=== PATIENT | male | born 1980 | race African-American/Black ===

== ENCOUNTER 2016-11-07 00:13 | Inpatient (IN) | payer MEDICAID ==
[~2016-11-07] VITALS: Ht 188 cm; Wt 76.9 kg
[~2016-11-07 00:13] MED LIST: CARB200T6 PO; DIVA500T35 PO; LEVO25TA9 PO; LITH300C3 PO; PALI234D IM; VITAD1000 PO
[2016-11-07] MEDS ORDERED: HALOPERIDOL LACTATE 5 MG/ML VIAL IM ONE ×2 (00:30→08:00)
[2016-11-07] MEDS ORDERED: DiphenhydrAMINE HCL 50 MG/ML VIAL IM ONE (00:30)
[2016-11-07] MEDS ORDERED: LORazepam 2 MG/ML VIAL IM ONE ×2 (00:30→08:00)
[2016-11-07] MEDS ORDERED: ZOLPIDEM TARTRATE 10 MG TABLET PO PRN ×2 (01:00→01:15)
[2016-11-07] MEDS ORDERED: LORazepam 2 MG TABLET PO PRN (01:00)
[2016-11-07] MEDS ORDERED: HALOPERIDOL 5 MG TABLET PO PRN (01:00)
[2016-11-07 01:15] LABS: BASOPHILS % (AUTO) 0.2 % (0.0-2.0); EOSINOPHILS % (AUTO) 0.2 % (1.0-6.0); HEMATOCRIT 41.3 % (41-53); HEMOGLOBIN 13.4 g/dL (13.5-17.5); LYMPHOCYTES # (AUTO) 1.3 K/uL (1.0-4.8); LYMPHOCYTES % (AUTO) 17.9 % (22.0-44.0); MEAN CORPUSCULAR HEMOGLOBIN 29.1 pg (26.0-34.0); MEAN CORPUSCULAR HGB CONC 32.4 G/dL (31.0-37.0); MEAN CORPUSCULAR VOLUME 90 fL (80-100); MONOCYTES # (AUTO) 0.8 K/uL (0.1-1.0); MONOCYTES % (AUTO) 10.5 % (2.0-9.0); NEUTROPHILS # (AUTO) 5.3 K/uL (1.8-7.7); NEUTROPHILS % (AUTO) 71.2 % (40.0-70.0); PLATELET COUNT (AUTO) 279 K/uL (150-450); RED BLOOD CELL COUNT(AUTO) 4.61 MIL/uL (4.50-5.90); RED CELL DISTRIBUTION WIDTH 12.6 % (11.5-14.5); WHITE BLOOD COUNT (AUTO) 7.4 K/uL (4.5-11.0)
[2016-11-07 01:23] LABS: ANION GAP 8 mmol/L (8-16); CALCIUM, TOTAL 8.6 mg/dL (8.8-10.5); CARBON DIOXIDE 30 mmol/L (22-29); CHLORIDE 98 mmol/L (98-107); CREATININE 1.12 mg/dL (0.60-1.30); GLOMERULAR FILTR. RATE CALC > 60 mL/min (>60); POTASSIUM 3.7 mmol/L (3.5-5.1); SODIUM SERUM 136 mmol/L (136-145); UREA NITROGEN, BLOOD 8 mg/dL (7-18)
[2016-11-07 01:29] LABS: ALANINE AMINOTRANSFERASE 13 U/L (12-78); ALBUMIN 3.5 g/dL (3.4-5.0); ASPARTATE AMINOTRANSFERASE 15 U/L (15-37); BILIRUBIN,TOTAL 0.1 mg/dL (0.1-1.0); TOTAL PROTEIN, SERUM 7.6 g/dL (6.4-8.2); VALPROIC ACID 27 mcg/mL (50-100)
[2016-11-07 01:59] LABS: APPEARANCE,URINE CLEAR (CLEAR); GLUCOSE, URINE (UA) NEGATIVE (NEGATIVE); KETONES,URINE TRACE mg/dL (NEGATIVE); LEUKOCYTE ESTERASE ,URINE NEGATIVE (NEGATIVE); OCCULT BLOOD,URINE NEGATIVE (NEGATIVE); PROTEIN,URINE SEE CONFIRM (NEGATIVE)
[2016-11-07 02:02] LABS: LITHIUM < 0.20 mmol/L (0.60-1.20)
[2016-11-07 02:25] LABS: ADD UA MICROSCOPIC YES; SULFOSALICYLIC ACID,URINE 1+ (Negative)
[2016-11-07 02:28] LABS: RBC,URINE 0-2 /HPF (0-2); WBC,URINE 0-2 /HPF (0-5)
[2016-11-07 02:29] LABS: SQUAMOUS EPITHELIAL CELL,UR Few /LPF (None Seen)
[2016-11-07 10:23] VITALS: BP 117/71
[2016-11-07] MEDS: CarBAMazepine 200 MG TABLET PO SCH ×2 (12:48→17:25)
[2016-11-07 18:15] VITALS: BP 133/72
[2016-11-08] MEDS: LEVOTHYROXINE SODIUM 25 MCG TABLET PO SCH (06:41)
[2016-11-08] MEDS: CarBAMazepine 200 MG TABLET PO SCH ×3 (09:09→16:37)
[2016-11-08] MEDS: HALOPERIDOL 5 MG TABLET PO PRN ×2 (09:09→16:36)
[2016-11-08] MEDS: CHOLECALCIFEROL (VIT D3) 1,000 UNITS TABLET PO SCH (09:09)
[2016-11-08] MEDS: LORazepam 2 MG TABLET PO PRN ×2 (09:09→16:36)
[2016-11-08 10:46] VITALS: BP 128/93
[2016-11-08 16:50] VITALS: BP 137/84
[2016-11-08] MEDS ORDERED: ONDANSETRON HCL 4 MG TABLET PO PRN (17:45)
[2016-11-08] MEDS ORDERED: ALBUTEROL SULFATE HFA 90 MCG/PUFF 8 GM INHALER IH PRN (17:45)
[2016-11-08] MEDS ORDERED: ACETAMINOPHEN 325 MG TABLET PO PRN (17:45)
[2016-11-08] MEDS ORDERED: MAGNESIUM HYDROXIDE SUSPENSION 30 ML UDCUP PO PRN (17:45)
[2016-11-08] MEDS ORDERED: PETROLATUM,WHITE 71 GM JELLY TP PRN (17:45)
[2016-11-08] MEDS ORDERED: BACITRACIN 28.4 GM OINTMENT TP PRN (17:45)
[2016-11-08] MEDS ORDERED: CloNIDine HCL 0.1 MG TABLET PO PRN (17:45)
[2016-11-08] MEDS ORDERED: LOPERAMIDE HCL 2 MG CAPSULE PO PRN (17:45)
[2016-11-08] MEDS ORDERED: MAG HYDROX/AL HYDROX/SIMETH ES 30 ML SUSPENSION UDCUP PO PRN (17:45)
[2016-11-08] MEDS ORDERED: BENZOCAINE/MENTHOL LOZENGE [8 LOZENGES/PACKET] MM PRN (18:00)
[2016-11-09] MEDS: LEVOTHYROXINE SODIUM 25 MCG TABLET PO SCH (06:29)
[2016-11-09] MEDS: HALOPERIDOL 5 MG TABLET PO PRN ×2 (08:32→16:57)
[2016-11-09] MEDS: CarBAMazepine 200 MG TABLET PO SCH ×3 (08:33→16:55)
[2016-11-09] MEDS: LORazepam 2 MG TABLET PO PRN ×2 (08:33→21:35)
[2016-11-09] MEDS: CHOLECALCIFEROL (VIT D3) 1,000 UNITS TABLET PO SCH (08:33)
[2016-11-09 09:26] VITALS: BP 107/65
[2016-11-09 16:58] VITALS: BP 118/61
[2016-11-09] MEDS: IBUPROFEN 600 MG TABLET PO PRN (16:58)
[2016-11-10] MEDS: LEVOTHYROXINE SODIUM 25 MCG TABLET PO SCH (07:00)
[2016-11-10] MEDS ORDERED: PALIPERIDONE PALMITATE 234 MG/1.5 ML SYRINGE IM SCH (09:00)
[2016-11-10] MEDS: CarBAMazepine 200 MG TABLET PO SCH ×3 (09:08→16:15)
[2016-11-10] MEDS: CHOLECALCIFEROL (VIT D3) 1,000 UNITS TABLET PO SCH (09:08)
[2016-11-10 10:48] VITALS: BP 140/67
[2016-11-10] MEDS: LORazepam 2 MG TABLET PO PRN ×2 (11:55→16:14)
[2016-11-10] MEDS: HALOPERIDOL 5 MG TABLET PO PRN ×2 (11:55→21:17)
[2016-11-10 16:00] VITALS: BP 122/71
[2016-11-10] MEDS: IBUPROFEN 600 MG TABLET PO PRN (21:17)
[2016-11-10 21:19] VITALS: BP 129/78
[2016-11-11] MEDS: LEVOTHYROXINE SODIUM 25 MCG TABLET PO SCH (06:15)
[2016-11-11 08:06] VITALS: BP 125/56
[2016-11-11] MEDS: CarBAMazepine 200 MG TABLET PO SCH ×2 (10:10→13:00)
[2016-11-11] MEDS: CHOLECALCIFEROL (VIT D3) 1,000 UNITS TABLET PO SCH (10:10)
[2016-11-11] MEDS: HALOPERIDOL 5 MG TABLET PO PRN (10:27)
== END 2016-11-11 14:00 | disposition home or self-care (01) | DRG 750 ==
LOC: EEVIPCON 00:14 → EMS 00:14 → 3EI 09:12
PROVIDERS: ADMIT Psychiatry & Neurology Psychiatry; ATTEND Psychiatry & Neurology Psychiatry
DX: F20.0 Paranoid schizophrenia (principal); E55.9 Vitamin D deficiency, unspecified; E03.9 Hypothyroidism, unspecified; K59.00 Constipation, unspecified; G47.00 Insomnia, unspecified; G43.909 Migraine, unspecified, not intractable, without status migrainosus; Z79.899 Other long term (current) drug therapy
CPT/HCPCS: 96372; 99285; G0480; J1200; J1630; J2060

== ENCOUNTER 2016-11-23 13:50 | Inpatient (IN) | payer MEDICAID, OTHER ==
[~2016-11-23] VITALS: Ht 177.8 cm; Wt 75.7 kg
[~2016-11-23 13:50] MED LIST changes: -DIVA500T35 PO; -LITH300C3 PO
[2016-11-23] MEDS ORDERED: HALOPERIDOL LACTATE 5 MG/ML VIAL IM ONE (15:15)
[2016-11-23] MEDS ORDERED: LORazepam 2 MG/ML VIAL IM ONE (15:15)
[2016-11-23] MEDS ORDERED: DiphenhydrAMINE HCL 50 MG/ML VIAL IM ONE (15:15)
[2016-11-23 17:25] LABS: APPEARANCE,URINE CLEAR (CLEAR); GLUCOSE, URINE (UA) NEGATIVE (NEGATIVE); KETONES,URINE 40 mg/dL (NEGATIVE); LEUKOCYTE ESTERASE ,URINE NEGATIVE (NEGATIVE); OCCULT BLOOD,URINE NEGATIVE (NEGATIVE); PROTEIN,URINE SEE CONFIRM (NEGATIVE)
[2016-11-23 17:26] LABS: ADD UA MICROSCOPIC YES
[2016-11-23 17:36] LABS: SULFOSALICYLIC ACID,URINE 1+ (Negative)
[2016-11-23 17:47] LABS: SQUAMOUS EPITHELIAL CELL,UR Moderate /LPF (None Seen)
[2016-11-23 17:49] LABS: RBC,URINE 0-2 /HPF (0-2); WBC,URINE 0-2 /HPF (0-5)
[2016-11-23 18:10] VITALS: BP 130/88
[2016-11-23] MEDS: LORazepam 2 MG TABLET PO PRN (18:28)
[2016-11-23] MEDS: HALOPERIDOL 5 MG TABLET PO PRN (18:35)
[2016-11-24 00:35] VITALS: BP 125/88
[2016-11-24] MEDS: LEVOTHYROXINE SODIUM 25 MCG TABLET PO SCH (06:09)
[2016-11-24] MEDS: CHOLECALCIFEROL (VIT D3) 1,000 UNITS TABLET PO SCH (07:51)
[2016-11-24] MEDS: HALOPERIDOL 5 MG TABLET PO PRN ×3 (07:51→22:12)
[2016-11-24] MEDS: CarBAMazepine 200 MG TABLET PO SCH ×3 (07:51→16:39)
[2016-11-24] MEDS ORDERED: ALBUTEROL SULFATE HFA 90 MCG/PUFF 8 GM INHALER IH PRN (08:00)
[2016-11-24] MEDS ORDERED: MAGNESIUM HYDROXIDE SUSPENSION 30 ML UDCUP PO PRN (08:00)
[2016-11-24] MEDS ORDERED: CloNIDine HCL 0.1 MG TABLET PO PRN (08:00)
[2016-11-24] MEDS ORDERED: ONDANSETRON HCL 4 MG TABLET PO PRN (08:00)
[2016-11-24] MEDS ORDERED: BENZOCAINE/MENTHOL LOZENGE MM PRN (08:00)
[2016-11-24] MEDS ORDERED: PETROLATUM,WHITE 71 GM JELLY TP PRN (08:00)
[2016-11-24] MEDS ORDERED: BACITRACIN 28.4 GM OINTMENT TP PRN (08:00)
[2016-11-24] MEDS ORDERED: MAG HYDROX/AL HYDROX/SIMETH ES 30 ML SUSPENSION UDCUP PO PRN (08:00)
[2016-11-24] MEDS ORDERED: ACETAMINOPHEN 325 MG TABLET PO PRN (08:00)
[2016-11-24] MEDS ORDERED: LOPERAMIDE HCL 2 MG CAPSULE PO PRN (08:00)
[2016-11-24 08:14] VITALS: BP 126/63
[2016-11-24 08:30] LABS: ANION GAP 7 mmol/L (8-16); CARBON DIOXIDE 31 mmol/L (22-29); CHLORIDE 99 mmol/L (98-107); CREATININE 0.92 mg/dL (0.60-1.30); GLOMERULAR FILTR. RATE CALC > 60 mL/min (>60); POTASSIUM 4.2 mmol/L (3.5-5.1); SODIUM SERUM 137 mmol/L (136-145); UREA NITROGEN, BLOOD 10 mg/dL (7-18)
[2016-11-24 08:37] LABS: BASOPHILS # (AUTO) 0.03 K/uL (0.00-0.20); BASOPHILS % (AUTO) 0.6 % (0.0-2.0); EOSINOPHILS # (AUTO) 0.06 K/uL (0.00-0.70); EOSINOPHILS % (AUTO) 1.12 % (1.0-6.0); HEMATOCRIT 45.1 % (41-53); HEMOGLOBIN 14.8 g/dL (13.5-17.5); LYMPHOCYTES # (AUTO) 2.2 K/uL (1.0-4.8); MEAN CORPUSCULAR HEMOGLOBIN 29.4 pg (26.0-34.0); MEAN CORPUSCULAR HGB CONC 32.7 G/dL (31.0-37.0); MEAN CORPUSCULAR VOLUME 90 fL (80-100); MONOCYTES # (AUTO) 0.6 K/uL (0.1-1.0); MONOCYTES % (AUTO) 11.3 % (2.0-9.0); NEUTROPHILS # (AUTO) 2.4 K/uL (1.8-7.7); PLATELET COUNT (AUTO) 293 K/uL (150-450); RED BLOOD CELL COUNT(AUTO) 5.03 MIL/uL (4.50-5.90); RED CELL DISTRIBUTION WIDTH 13.4 % (11.5-14.5); WHITE BLOOD COUNT (AUTO) 5.2 K/uL (4.5-11.0)
[2016-11-24 08:41] LABS: ALANINE AMINOTRANSFERASE 13 U/L (12-78); ALBUMIN 3.5 g/dL (3.4-5.0); ASPARTATE AMINOTRANSFERASE 17 U/L (15-37); BILIRUBIN,TOTAL 0.3 mg/dL (0.1-1.0); TOTAL PROTEIN, SERUM 7.5 g/dL (6.4-8.2)
[2016-11-24] MEDS: LORazepam 2 MG TABLET PO PRN ×2 (12:07→16:38)
[2016-11-24] MEDS: TERBINAFINE HCL 1% 30 GM CREAM TP SCH (12:30)
[2016-11-24] MEDS: IBUPROFEN 600 MG TABLET PO PRN (16:39)
[2016-11-24 17:37] VITALS: BP 119/70
[2016-11-24] MEDS: ZOLPIDEM TARTRATE 10 MG TABLET PO PRN (22:12)
[2016-11-25 05:57] VITALS: BP 123/67
[2016-11-25] MEDS: LEVOTHYROXINE SODIUM 25 MCG TABLET PO SCH (06:32)
[2016-11-25 08:57] VITALS: BP 100/50
[2016-11-25] MEDS: CHOLECALCIFEROL (VIT D3) 1,000 UNITS TABLET PO SCH (09:23)
[2016-11-25] MEDS: CarBAMazepine 200 MG TABLET PO SCH ×3 (09:24→16:08)
[2016-11-25] MEDS: TERBINAFINE HCL 1% 30 GM CREAM TP SCH (09:24)
[2016-11-25] MEDS: HALOPERIDOL 5 MG TABLET PO PRN ×3 (09:25→20:15)
[2016-11-25 12:43] VITALS: BP 140/62
[2016-11-25 16:19] VITALS: BP 142/77
[2016-11-25] MEDS: LORazepam 2 MG TABLET PO PRN (17:59)
[2016-11-25] MEDS: IBUPROFEN 600 MG TABLET PO PRN (18:37)
[2016-11-25] MEDS: ZOLPIDEM TARTRATE 10 MG TABLET PO PRN (20:15)
[2016-11-26 06:25] VITALS: BP 115/66
[2016-11-26] MEDS: LEVOTHYROXINE SODIUM 25 MCG TABLET PO SCH (06:32)
[2016-11-26 08:28] LABS: BASOPHILS # (AUTO) 0.02 K/uL (0.00-0.20); BASOPHILS % (AUTO) 0.4 % (0.0-2.0); EOSINOPHILS # (AUTO) 0.04 K/uL (0.00-0.70); EOSINOPHILS % (AUTO) 0.89 % (1.0-6.0); HEMATOCRIT 40.6 % (41-53); HEMOGLOBIN 13.2 g/dL (13.5-17.5); LYMPHOCYTES # (AUTO) 1.6 K/uL (1.0-4.8); MEAN CORPUSCULAR HEMOGLOBIN 29.7 pg (26.0-34.0); MEAN CORPUSCULAR HGB CONC 32.6 G/dL (31.0-37.0); MEAN CORPUSCULAR VOLUME 91 fL (80-100); MONOCYTES # (AUTO) 0.6 K/uL (0.1-1.0); MONOCYTES % (AUTO) 12.3 % (2.0-9.0); NEUTROPHILS # (AUTO) 2.4 K/uL (1.8-7.7); NEUTROPHILS % (AUTO) 51.4 % (40.0-70.0); PLATELET COUNT (AUTO) 267 K/uL (150-450); RED BLOOD CELL COUNT(AUTO) 4.46 MIL/uL (4.50-5.90); RED CELL DISTRIBUTION WIDTH 13.2 % (11.5-14.5); WHITE BLOOD COUNT (AUTO) 4.6 K/uL (4.5-11.0)
[2016-11-26 08:43] VITALS: BP 105/60
[2016-11-26] MEDS: CarBAMazepine 200 MG TABLET PO SCH ×3 (08:43→16:19)
[2016-11-26] MEDS: TERBINAFINE HCL 1% 30 GM CREAM TP SCH (08:43)
[2016-11-26] MEDS: CHOLECALCIFEROL (VIT D3) 1,000 UNITS TABLET PO SCH (08:43)
[2016-11-26] MEDS ORDERED: CloZAPine 25 MG TABLET PO SCH (09:00)
[2016-11-26 11:50] VITALS: BP 112/71
[2016-11-26] MEDS: LORazepam 2 MG TABLET PO PRN ×2 (11:50→19:00)
[2016-11-26] MEDS: IBUPROFEN 600 MG TABLET PO PRN (11:50)
[2016-11-26] MEDS: HALOPERIDOL 5 MG TABLET PO PRN ×2 (12:17→19:00)
[2016-11-26 16:00] VITALS: BP 108/64
[2016-11-26] MEDS: ZOLPIDEM TARTRATE 10 MG TABLET PO PRN (20:35)
[2016-11-27] MEDS: LEVOTHYROXINE SODIUM 25 MCG TABLET PO SCH (07:33)
[2016-11-27] MEDS: CHOLECALCIFEROL (VIT D3) 1,000 UNITS TABLET PO SCH (08:25)
[2016-11-27] MEDS: CarBAMazepine 200 MG TABLET PO SCH ×3 (08:26→16:14)
[2016-11-27] MEDS: LORazepam 2 MG TABLET PO PRN ×2 (08:28→13:30)
[2016-11-27] MEDS ORDERED: CloZAPine 25 MG TABLET PO SCH ×2 (09:00→21:00)
[2016-11-27 09:11] VITALS: BP 110/67
[2016-11-27] MEDS: TERBINAFINE HCL 1% 30 GM CREAM TP SCH (09:18)
[2016-11-27] MEDS: HALOPERIDOL 5 MG TABLET PO PRN ×2 (12:02→17:06)
[2016-11-27 16:00] VITALS: BP 110/62
[2016-11-28 01:10] VITALS: BP 110/69
[2016-11-28] MEDS: LEVOTHYROXINE SODIUM 25 MCG TABLET PO SCH (06:34)
[2016-11-28] MEDS: HALOPERIDOL 5 MG TABLET PO PRN ×2 (06:53→15:02)
[2016-11-28 08:24] VITALS: BP 116/60
[2016-11-28] MEDS ORDERED: CloZAPine 25 MG TABLET PO SCH ×2 (09:00→21:00)
[2016-11-28] MEDS: LORazepam 2 MG TABLET PO PRN ×2 (09:32→15:02)
[2016-11-28] MEDS: CarBAMazepine 200 MG TABLET PO SCH ×3 (09:32→17:03)
[2016-11-28] MEDS: CHOLECALCIFEROL (VIT D3) 1,000 UNITS TABLET PO SCH (09:32)
[2016-11-28] MEDS: TERBINAFINE HCL 1% 30 GM CREAM TP SCH (09:33)
[2016-11-28 16:10] VITALS: BP 119/63
[2016-11-28] MEDS: ZOLPIDEM TARTRATE 10 MG TABLET PO PRN (21:19)
[2016-11-29 00:06] VITALS: BP 118/61
[2016-11-29] MEDS: LEVOTHYROXINE SODIUM 25 MCG TABLET PO SCH (06:15)
[2016-11-29 08:39] VITALS: BP 126/50
[2016-11-29] MEDS: CHOLECALCIFEROL (VIT D3) 1,000 UNITS TABLET PO SCH (08:58)
[2016-11-29] MEDS: CarBAMazepine 200 MG TABLET PO SCH ×3 (08:58→16:51)
[2016-11-29] MEDS: TERBINAFINE HCL 1% 30 GM CREAM TP SCH (08:59)
[2016-11-29] MEDS: CloZAPine 25 MG TABLET PO SCH ×2 (08:59→20:54)
[2016-11-29] MEDS: HALOPERIDOL 5 MG TABLET PO PRN ×2 (11:51→16:51)
[2016-11-29 16:15] VITALS: BP 116/65
[2016-11-29] MEDS: LORazepam 2 MG TABLET PO PRN (16:51)
[2016-11-29] MEDS: ZOLPIDEM TARTRATE 10 MG TABLET PO PRN (20:55)
[2016-11-30] VITALS (7 sets, daily range): BP systolic 103–127; BP diastolic 67–79
[2016-11-30] MEDS: LEVOTHYROXINE SODIUM 25 MCG TABLET PO SCH (06:38)
[2016-11-30] MEDS: LORazepam 2 MG TABLET PO PRN ×2 (08:39→17:44)
[2016-11-30] MEDS: TERBINAFINE HCL 1% 30 GM CREAM TP SCH (08:39)
[2016-11-30] MEDS: CloZAPine 25 MG TABLET PO SCH ×2 (08:39→20:19)
[2016-11-30] MEDS: CHOLECALCIFEROL (VIT D3) 1,000 UNITS TABLET PO SCH (08:39)
[2016-11-30] MEDS: CarBAMazepine 200 MG TABLET PO SCH ×3 (08:58→16:59)
[2016-11-30] MEDS: HALOPERIDOL 5 MG TABLET PO PRN ×2 (14:21→18:21)
[2016-11-30] MEDS: IBUPROFEN 600 MG TABLET PO PRN (14:23)
[2016-11-30] MEDS: ZOLPIDEM TARTRATE 10 MG TABLET PO PRN (20:19)
[2016-11-30] MEDS ORDERED: DiphenhydrAMINE HCL 50 MG/ML VIAL IM ONE (20:45)
[2016-12-01 05:11] VITALS: BP 112/78
[2016-12-01] MEDS: LEVOTHYROXINE SODIUM 25 MCG TABLET PO SCH (06:30)
[2016-12-01 08:30] VITALS: BP 104/61
[2016-12-01] MEDS ORDERED: CloZAPine 25 MG TABLET PO SCH (09:00)
[2016-12-01] MEDS: CHOLECALCIFEROL (VIT D3) 1,000 UNITS TABLET PO SCH (09:55)
[2016-12-01] MEDS: CarBAMazepine 200 MG TABLET PO SCH ×3 (09:55→16:07)
[2016-12-01] MEDS: TERBINAFINE HCL 1% 30 GM CREAM TP SCH (09:55)
[2016-12-01] MEDS: HALOPERIDOL 5 MG TABLET PO PRN ×2 (11:54→15:56)
[2016-12-01] MEDS: LORazepam 2 MG TABLET PO PRN ×2 (11:54→18:59)
[2016-12-01 16:00] VITALS: BP 101/73
[2016-12-01 18:55] VITALS: BP 128/71
[2016-12-01] MEDS ORDERED: CloZAPine 100 MG TABLET PO SCH (21:00)
[2016-12-01] MEDS: ZOLPIDEM TARTRATE 10 MG TABLET PO PRN (21:04)
[2016-12-02 05:12] VITALS: BP 117/70
[2016-12-02] MEDS: LEVOTHYROXINE SODIUM 25 MCG TABLET PO SCH (06:20)
[2016-12-02 08:11] VITALS: BP 126/70
[2016-12-02] MEDS: CHOLECALCIFEROL (VIT D3) 1,000 UNITS TABLET PO SCH (08:30)
[2016-12-02] MEDS: TERBINAFINE HCL 1% 30 GM CREAM TP SCH (08:30)
[2016-12-02] MEDS: CarBAMazepine 200 MG TABLET PO SCH ×3 (08:31→17:00)
[2016-12-02] MEDS ORDERED: CloZAPine 25 MG TABLET PO SCH (09:00)
[2016-12-02] MEDS: HALOPERIDOL 5 MG TABLET PO PRN ×2 (11:58→20:29)
[2016-12-02] MEDS: LORazepam 2 MG TABLET PO PRN ×2 (13:23→20:29)
[2016-12-02 17:08] VITALS: BP 123/90
[2016-12-02] MEDS ORDERED: CloZAPine 100 MG TABLET PO SCH (21:00)
[2016-12-03 04:37] VITALS: BP 110/65
[2016-12-03] MEDS: LEVOTHYROXINE SODIUM 25 MCG TABLET PO SCH (07:32)
[2016-12-03 08:05] LABS: BASOPHILS # (AUTO) 0.02 K/uL (0.00-0.20); BASOPHILS % (AUTO) 0.3 % (0.0-2.0); EOSINOPHILS # (AUTO) 0.06 K/uL (0.00-0.70); EOSINOPHILS % (AUTO) 0.88 % (1.0-6.0); HEMATOCRIT 42.6 % (41-53); LYMPHOCYTES # (AUTO) 2.7 K/uL (1.0-4.8); MEAN CORPUSCULAR HEMOGLOBIN 29.5 pg (26.0-34.0); MEAN CORPUSCULAR HGB CONC 32.8 G/dL (31.0-37.0); MEAN CORPUSCULAR VOLUME 90 fL (80-100); MONOCYTES # (AUTO) 0.8 K/uL (0.1-1.0); NEUTROPHILS # (AUTO) 2.9 K/uL (1.8-7.7); NEUTROPHILS % (AUTO) 44.8 % (40.0-70.0); PLATELET COUNT (AUTO) 319 K/uL (150-450); RED BLOOD CELL COUNT(AUTO) 4.74 MIL/uL (4.50-5.90); WHITE BLOOD COUNT (AUTO) 6.5 K/uL (4.5-11.0)
[2016-12-03 08:42] VITALS: BP 113/63
[2016-12-03] MEDS ORDERED: CloZAPine 25 MG TABLET PO SCH (09:00)
[2016-12-03] MEDS: CHOLECALCIFEROL (VIT D3) 1,000 UNITS TABLET PO SCH (09:13)
[2016-12-03] MEDS: TERBINAFINE HCL 1% 30 GM CREAM TP SCH (09:13)
[2016-12-03] MEDS: CarBAMazepine 200 MG TABLET PO SCH ×3 (09:13→17:39)
[2016-12-03] MEDS: HALOPERIDOL 5 MG TABLET PO PRN (11:47)
[2016-12-03] MEDS: LORazepam 2 MG TABLET PO PRN ×2 (14:01→19:13)
[2016-12-03 16:31] VITALS: BP 108/82
[2016-12-03] MEDS ORDERED: CloZAPine 100 MG TABLET PO SCH (21:00)
[2016-12-04 01:36] VITALS: BP 107/83
[2016-12-04] MEDS: LEVOTHYROXINE SODIUM 25 MCG TABLET PO SCH (07:02)
[2016-12-04 08:00] VITALS: BP 123/66
[2016-12-04] MEDS: CHOLECALCIFEROL (VIT D3) 1,000 UNITS TABLET PO SCH (08:14)
[2016-12-04] MEDS: CarBAMazepine 200 MG TABLET PO SCH ×3 (08:14→16:29)
[2016-12-04] MEDS: CloZAPine 100 MG TABLET PO SCH ×2 (08:14→20:05)
[2016-12-04] MEDS: TERBINAFINE HCL 1% 30 GM CREAM TP SCH (08:14)
[2016-12-04] MEDS: HYPROMELLOSE 0.5% 15 ML OPHTHALMIC SOLUTION OU PRN ×2 (10:36→16:19)
[2016-12-04 16:00] VITALS: BP 108/64
[2016-12-04] MEDS: ZOLPIDEM TARTRATE 10 MG TABLET PO PRN (20:05)
[2016-12-05 00:35] VITALS: BP 122/63
[2016-12-05 06:11] VITALS: BP 113/73
[2016-12-05] MEDS: LORazepam 2 MG TABLET PO PRN (06:18)
[2016-12-05] MEDS: HALOPERIDOL 5 MG TABLET PO PRN (06:18)
[2016-12-05] MEDS: LEVOTHYROXINE SODIUM 25 MCG TABLET PO SCH (06:31)
[2016-12-05 08:12] VITALS: BP 135/80
[2016-12-05] MEDS: CloZAPine 100 MG TABLET PO SCH (09:38)
[2016-12-05] MEDS: CHOLECALCIFEROL (VIT D3) 1,000 UNITS TABLET PO SCH (09:38)
[2016-12-05] MEDS: TERBINAFINE HCL 1% 30 GM CREAM TP SCH (09:39)
[2016-12-05] MEDS: CarBAMazepine 200 MG TABLET PO SCH ×2 (09:39→12:31)
[2016-12-05] MEDS ORDERED: CLOZ100 PO ×2 (10:17)
[2016-12-06] MEDS ORDERED: CloZAPine 25 MG TABLET PO SCH (09:00)
[2016-12-06] MEDS ORDERED: CloZAPine 100 MG TABLET PO SCH (21:00)
[2016-12-07] MEDS ORDERED: CloZAPine 25 MG TABLET PO SCH (09:00)
[2016-12-07] MEDS ORDERED: CloZAPine 100 MG TABLET PO SCH (21:00)
[2016-12-08] MEDS ORDERED: CloZAPine 100 MG TABLET PO SCH ×2 (09:00→21:00)
== END 2016-12-05 15:05 | disposition home or self-care (01) | DRG 750 ==
LOC: EEVIPCON 13:51 → EMS 13:51 → B2S 16:39
PROVIDERS: ADMIT Psychiatry & Neurology Psychiatry; ATTEND Psychiatry & Neurology Psychiatry
DX: F20.0 Paranoid schizophrenia (principal); R45.851 Suicidal ideations; E55.9 Vitamin D deficiency, unspecified; G40.909 Epilepsy, unspecified, not intractable, without status epilepticus; R45.850 Homicidal ideations; E78.5 Hyperlipidemia, unspecified; B35.3 Tinea pedis; K59.00 Constipation, unspecified; R25.1 Tremor, unspecified; G47.00 Insomnia, unspecified; Z79.899 Other long term (current) drug therapy; Z91.14 Patient's other noncompliance with medication regimen
CPT/HCPCS: 87081; 96372; 99285; G0480; J1200; J1630; J2060

== ENCOUNTER 2017-04-11 16:41 | Inpatient (IN) | payer MEDICAID, OTHER ==
[~2017-04-11] VITALS: Ht 185.4 cm; Wt 75.7 kg
[~2017-04-11 16:41] MED LIST changes: +CLOZ100 PO; +FERR-89 PO; +NACL1 PO; -PALI234D IM; +SIMV5TAB6 PO
[2017-04-11] MEDS ORDERED: HALOPERIDOL LACTATE 5 MG/ML VIAL IM ONE (17:45)
[2017-04-11] MEDS ORDERED: DiphenhydrAMINE HCL 50 MG/ML VIAL IM ONE (17:45)
[2017-04-11] MEDS ORDERED: LORazepam 2 MG/ML VIAL IM ONE ×2 (17:45→21:15)
[2017-04-11] MEDS ORDERED: DSS100 PO (18:25)
[2017-04-11] MEDS ORDERED: ZOLP10TA7 PO (18:25)
[2017-04-11 19:55] LABS: BASOPHILS % (AUTO) 0.2 % (0.0-2.0); EOSINOPHILS % (AUTO) 0 % (1.0-6.0); HEMATOCRIT 35.7 % (41-53); HEMOGLOBIN 12.3 g/dL (13.5-17.5); LYMPHOCYTES # (AUTO) 1.8 K/uL (1.0-4.8); LYMPHOCYTES % (AUTO) 18.6 % (22.0-44.0); MEAN CORPUSCULAR HEMOGLOBIN 30.9 pg (26.0-34.0); MEAN CORPUSCULAR HGB CONC 34.5 G/dL (31.0-37.0); MEAN CORPUSCULAR VOLUME 89 fL (80-100); MONOCYTES # (AUTO) 0.6 K/uL (0.1-1.0); NEUTROPHILS # (AUTO) 7.1 K/uL (1.8-7.7); NEUTROPHILS % (AUTO) 75.2 % (40.0-70.0); PLATELET COUNT (AUTO) 370 K/uL (150-450); RED BLOOD CELL COUNT(AUTO) 3.99 MIL/uL (4.50-5.90); RED CELL DISTRIBUTION WIDTH 12.9 % (11.5-14.5); WHITE BLOOD COUNT (AUTO) 9.4 K/uL (4.5-11.0)
[2017-04-11 20:23] LABS: ANION GAP 11 mmol/L (8-16); CALCIUM, TOTAL 8.9 mg/dL (8.8-10.5); CARBON DIOXIDE 26 mmol/L (22-29); CHLORIDE 97 mmol/L (98-107); CREATININE 0.97 mg/dL (0.60-1.30); GLOMERULAR FILTR. RATE CALC > 60 mL/min (>60); POTASSIUM 3.9 mmol/L (3.5-5.1); SODIUM SERUM 134 mmol/L (136-145); UREA NITROGEN, BLOOD 9 mg/dL (7-18)
[2017-04-11 20:29] LABS: ALANINE AMINOTRANSFERASE 22 U/L (12-78); ALBUMIN 3.7 g/dL (3.4-5.0); ASPARTATE AMINOTRANSFERASE 28 U/L (15-37); BILIRUBIN,TOTAL 0.3 mg/dL (0.1-1.0); TOTAL PROTEIN, SERUM 7.6 g/dL (6.4-8.2)
[2017-04-11 20:54] LABS: THYROID STIMULATING HORMONE 1.11 uIU/mL (0.36-3.74)
[2017-04-11] MEDS: HALOPERIDOL 5 MG TABLET PO PRN (23:31)
[2017-04-12] MEDS: ZOLPIDEM TARTRATE 10 MG TABLET PO PRN (00:10)
[2017-04-12 00:18] VITALS: BP 135/90
[2017-04-12] MEDS: LORazepam 2 MG TABLET PO PRN ×4 (00:57→15:47)
[2017-04-12] MEDS: HALOPERIDOL 5 MG TABLET PO PRN ×3 (03:50→15:47)
[2017-04-12 08:28] VITALS: BP 129/79
[2017-04-12 12:20] LABS: BASOPHILS % (AUTO) 0.2 % (0.0-2.0); EOSINOPHILS % (AUTO) 0.2 % (1.0-6.0); HEMATOCRIT 40.5 % (41-53); HEMOGLOBIN 13.6 g/dL (13.5-17.5); LYMPHOCYTES # (AUTO) 1.3 K/uL (1.0-4.8); LYMPHOCYTES % (AUTO) 15.2 % (22.0-44.0); MEAN CORPUSCULAR HEMOGLOBIN 30.6 pg (26.0-34.0); MEAN CORPUSCULAR HGB CONC 33.7 G/dL (31.0-37.0); MEAN CORPUSCULAR VOLUME 91 fL (80-100); MONOCYTES # (AUTO) 1.1 K/uL (0.1-1.0); MONOCYTES % (AUTO) 12.3 % (2.0-9.0); NEUTROPHILS # (AUTO) 6.2 K/uL (1.8-7.7); NEUTROPHILS % (AUTO) 72.1 % (40.0-70.0); PLATELET COUNT (AUTO) 399 K/uL (150-450); RED BLOOD CELL COUNT(AUTO) 4.45 MIL/uL (4.50-5.90); RED CELL DISTRIBUTION WIDTH 12.5 % (11.5-14.5); WHITE BLOOD COUNT (AUTO) 8.6 K/uL (4.5-11.0)
[2017-04-12 12:40] LABS: CHOL/HDL RATIO 2.4 (4.2-7.3)
[2017-04-12] MEDS: SODIUM CHLORIDE 1 GM TABLET PO SCH ×2 (13:47→17:44)
[2017-04-12] MEDS: FERROUS SULFATE 325 MG EC TABLET PO SCH (17:44)
[2017-04-12] MEDS: DOCUSATE SODIUM 100 MG CAPSULE PO SCH (17:44)
[2017-04-12] MEDS ORDERED: CloZAPine 100 MG TABLET PO SCH (21:00)
[2017-04-13] MEDS ORDERED: CloZAPine 100 MG TABLET PO SCH (09:00)
[2017-04-13 10:09] VITALS: BP 128/76
[2017-04-13] MEDS: FERROUS SULFATE 325 MG EC TABLET PO SCH ×2 (10:47→16:03)
[2017-04-13] MEDS: LEVOTHYROXINE SODIUM 25 MCG TABLET PO SCH (10:47)
[2017-04-13] MEDS: SIMVASTATIN 10 MG TABLET PO SCH (10:48)
[2017-04-13] MEDS: SODIUM CHLORIDE 1 GM TABLET PO SCH ×3 (10:48→16:03)
[2017-04-13] MEDS: CHOLECALCIFEROL (VIT D3) 1,000 UNITS TABLET PO SCH (10:49)
[2017-04-13] MEDS: DOCUSATE SODIUM 100 MG CAPSULE PO SCH ×2 (10:49→16:03)
[2017-04-13] MEDS: LORazepam 2 MG TABLET PO PRN ×2 (10:51→16:04)
[2017-04-13] MEDS: HALOPERIDOL 5 MG TABLET PO PRN ×2 (10:51→16:04)
[2017-04-13 16:36] VITALS: BP 137/85
[2017-04-13] MEDS ORDERED: LORazepam 2 MG/ML VIAL IM ONE (18:00)
[2017-04-13] MEDS ORDERED: HALOPERIDOL LACTATE 5 MG/ML VIAL IM ONE (18:00)
[2017-04-13] MEDS ORDERED: DiphenhydrAMINE HCL 50 MG/ML VIAL IM ONE (18:00)
[2017-04-13] MEDS: CloZAPine 100 MG TABLET PO SCH (20:47)
[2017-04-14] MEDS: FERROUS SULFATE 325 MG EC TABLET PO SCH ×2 (07:13→17:12)
[2017-04-14] MEDS: LEVOTHYROXINE SODIUM 25 MCG TABLET PO SCH (07:13)
[2017-04-14] MEDS: CloZAPine 100 MG TABLET PO SCH ×2 (08:02→20:08)
[2017-04-14 08:03] VITALS: BP 116/74
[2017-04-14] MEDS: CHOLECALCIFEROL (VIT D3) 1,000 UNITS TABLET PO SCH (08:03)
[2017-04-14] MEDS: LORazepam 2 MG TABLET PO PRN ×3 (08:04→19:35)
[2017-04-14] MEDS: DOCUSATE SODIUM 100 MG CAPSULE PO SCH ×2 (08:04→16:21)
[2017-04-14] MEDS: SIMVASTATIN 10 MG TABLET PO SCH (08:05)
[2017-04-14] MEDS: SODIUM CHLORIDE 1 GM TABLET PO SCH ×3 (08:05→16:21)
[2017-04-14] MEDS: HALOPERIDOL 5 MG TABLET PO PRN ×3 (08:05→19:35)
[2017-04-14 16:00] VITALS: BP 114/71
[2017-04-14] MEDS: ZOLPIDEM TARTRATE 10 MG TABLET PO PRN (21:11)
[2017-04-15] MEDS: LEVOTHYROXINE SODIUM 25 MCG TABLET PO SCH (09:41)
[2017-04-15] MEDS: FERROUS SULFATE 325 MG EC TABLET PO SCH ×2 (09:41→16:25)
[2017-04-15] MEDS: CHOLECALCIFEROL (VIT D3) 1,000 UNITS TABLET PO SCH (09:42)
[2017-04-15] MEDS: SODIUM CHLORIDE 1 GM TABLET PO SCH ×3 (09:42→16:26)
[2017-04-15] MEDS: DOCUSATE SODIUM 100 MG CAPSULE PO SCH ×2 (09:43→16:26)
[2017-04-15] MEDS: CloZAPine 100 MG TABLET PO SCH ×2 (09:43→20:40)
[2017-04-15] MEDS: SIMVASTATIN 10 MG TABLET PO SCH (09:43)
[2017-04-15] MEDS: HALOPERIDOL 5 MG TABLET PO PRN ×2 (10:05→16:25)
[2017-04-15] MEDS: LORazepam 2 MG TABLET PO PRN ×2 (10:05→16:25)
[2017-04-15] MEDS ORDERED: LORazepam 2 MG/ML VIAL IM ONE (17:30)
[2017-04-15] MEDS ORDERED: HALOPERIDOL LACTATE 5 MG/ML VIAL IM ONE (17:30)
[2017-04-16] MEDS: FERROUS SULFATE 325 MG EC TABLET PO SCH ×2 (07:32→16:30)
[2017-04-16] MEDS: HALOPERIDOL 5 MG TABLET PO PRN ×3 (07:32→16:23)
[2017-04-16] MEDS: LORazepam 2 MG TABLET PO PRN ×3 (07:32→16:23)
[2017-04-16] MEDS: LEVOTHYROXINE SODIUM 25 MCG TABLET PO SCH (07:32)
[2017-04-16] MEDS: SIMVASTATIN 10 MG TABLET PO SCH (08:08)
[2017-04-16] MEDS: CloZAPine 100 MG TABLET PO SCH ×2 (08:08→20:55)
[2017-04-16] MEDS: CHOLECALCIFEROL (VIT D3) 1,000 UNITS TABLET PO SCH (08:08)
[2017-04-16] MEDS: SODIUM CHLORIDE 1 GM TABLET PO SCH ×3 (08:08→16:30)
[2017-04-16] MEDS: DOCUSATE SODIUM 100 MG CAPSULE PO SCH ×2 (08:09→16:30)
[2017-04-16 08:52] VITALS: BP 104/60
[2017-04-16 16:30] VITALS: BP 131/78
[2017-04-16] MEDS ORDERED: HALOPERIDOL LACTATE 5 MG/ML VIAL IM ONE (19:30)
[2017-04-16] MEDS ORDERED: LORazepam 2 MG/ML VIAL IM ONE (19:30)
[2017-04-17] MEDS: FERROUS SULFATE 325 MG EC TABLET PO SCH ×2 (07:06→18:15)
[2017-04-17] MEDS: LEVOTHYROXINE SODIUM 25 MCG TABLET PO SCH (07:06)
[2017-04-17] MEDS: SODIUM CHLORIDE 1 GM TABLET PO SCH ×3 (08:04→18:15)
[2017-04-17] MEDS: DOCUSATE SODIUM 100 MG CAPSULE PO SCH ×2 (08:04→18:15)
[2017-04-17] MEDS: SIMVASTATIN 10 MG TABLET PO SCH (08:04)
[2017-04-17] MEDS: CHOLECALCIFEROL (VIT D3) 1,000 UNITS TABLET PO SCH (08:04)
[2017-04-17] MEDS: HALOPERIDOL 5 MG TABLET PO PRN ×2 (08:05→15:51)
[2017-04-17] MEDS: LORazepam 2 MG TABLET PO PRN ×2 (08:05→15:51)
[2017-04-17] MEDS: CloZAPine 100 MG TABLET PO SCH ×2 (08:05→21:52)
[2017-04-17 08:42] VITALS: BP 121/64
[2017-04-17] MEDS ORDERED: HALOPERIDOL LACTATE 5 MG/ML VIAL ONE (16:15)
[2017-04-17] MEDS ORDERED: LORazepam 2 MG/ML VIAL IM ONE (16:15)
[2017-04-17] MEDS ORDERED: HALOPERIDOL LACTATE 5 MG/ML VIAL IM ONE (16:15)
[2017-04-17] MEDS ORDERED: LORazepam 2 MG/ML VIAL ONE (16:15)
[2017-04-17 19:32] LABS: ANION GAP 4 mmol/L (8-16); CALCIUM, TOTAL 9.2 mg/dL (8.8-10.5); CARBON DIOXIDE 34 mmol/L (22-29); CHLORIDE 103 mmol/L (98-107); CREATININE 1.13 mg/dL (0.60-1.30); GLOMERULAR FILTR. RATE CALC > 60 mL/min (>60); POTASSIUM 3.6 mmol/L (3.5-5.1); SODIUM SERUM 141 mmol/L (136-145); UREA NITROGEN, BLOOD 14 mg/dL (7-18)
[2017-04-18] MEDS: FERROUS SULFATE 325 MG EC TABLET PO SCH ×2 (07:04→16:32)
[2017-04-18] MEDS: LEVOTHYROXINE SODIUM 25 MCG TABLET PO SCH (07:04)
[2017-04-18] MEDS: SODIUM CHLORIDE 1 GM TABLET PO SCH ×2 (09:15→16:18)
[2017-04-18] MEDS: DOCUSATE SODIUM 100 MG CAPSULE PO SCH ×2 (09:15→16:18)
[2017-04-18] MEDS: CarBAMazepine 200 MG TABLET PO SCH ×3 (09:16→16:18)
[2017-04-18] MEDS: CHOLECALCIFEROL (VIT D3) 1,000 UNITS TABLET PO SCH (09:16)
[2017-04-18] MEDS: CloZAPine 100 MG TABLET PO SCH ×2 (09:16→21:00)
[2017-04-18] MEDS: SIMVASTATIN 10 MG TABLET PO SCH (09:18)
[2017-04-18] MEDS: LORazepam 2 MG TABLET PO PRN ×2 (09:18→15:42)
[2017-04-18 09:30] VITALS: BP 125/74
[2017-04-18] MEDS: HALOPERIDOL 5 MG TABLET PO PRN ×2 (11:25→15:42)
[2017-04-18 16:15] VITALS: BP 124/66
[2017-04-18] MEDS ORDERED: HALOPERIDOL LACTATE 5 MG/ML VIAL IM ONE (18:15)
[2017-04-18] MEDS ORDERED: LORazepam 2 MG/ML VIAL IM ONE (18:15)
[2017-04-18] MEDS ORDERED: DiphenhydrAMINE HCL 50 MG/ML VIAL IM ONE (18:15)
[2017-04-18] MEDS: HALOPERIDOL 5 MG TABLET PO SCH (21:00)
[2017-04-19] MEDS: LEVOTHYROXINE SODIUM 25 MCG TABLET PO SCH (06:40)
[2017-04-19] MEDS: FERROUS SULFATE 325 MG EC TABLET PO SCH ×2 (06:41→16:25)
[2017-04-19 06:51] LABS: BASOPHILS % (AUTO) 0.7 % (0.0-2.0); EOSINOPHILS % (AUTO) 1.1 % (1.0-6.0); HEMATOCRIT 36.8 % (41-53); HEMOGLOBIN 12.7 g/dL (13.5-17.5); LYMPHOCYTES # (AUTO) 2.2 K/uL (1.0-4.8); LYMPHOCYTES % (AUTO) 43.5 % (22.0-44.0); MEAN CORPUSCULAR HEMOGLOBIN 31.2 pg (26.0-34.0); MEAN CORPUSCULAR HGB CONC 34.4 G/dL (31.0-37.0); MEAN CORPUSCULAR VOLUME 91 fL (80-100); MONOCYTES # (AUTO) 0.5 K/uL (0.1-1.0); NEUTROPHILS # (AUTO) 2.3 K/uL (1.8-7.7); NEUTROPHILS % (AUTO) 45.7 % (40.0-70.0); PLATELET COUNT (AUTO) 380 K/uL (150-450); RED BLOOD CELL COUNT(AUTO) 4.07 MIL/uL (4.50-5.90); RED CELL DISTRIBUTION WIDTH 12.7 % (11.5-14.5)
[2017-04-19] MEDS: SIMVASTATIN 10 MG TABLET PO SCH (08:51)
[2017-04-19] MEDS: SODIUM CHLORIDE 1 GM TABLET PO SCH ×2 (08:51→16:25)
[2017-04-19] MEDS: CHOLECALCIFEROL (VIT D3) 1,000 UNITS TABLET PO SCH (08:55)
[2017-04-19] MEDS: CarBAMazepine 200 MG TABLET PO SCH ×3 (08:56→16:25)
[2017-04-19] MEDS: DOCUSATE SODIUM 100 MG CAPSULE PO SCH ×2 (08:56→16:25)
[2017-04-19] MEDS: CloZAPine 100 MG TABLET PO SCH ×2 (08:56→20:47)
[2017-04-19] MEDS: HALOPERIDOL 5 MG TABLET PO PRN ×4 (08:56→16:25)
[2017-04-19] MEDS: LORazepam 2 MG TABLET PO PRN ×2 (08:57→16:25)
[2017-04-19 10:29] VITALS: BP 128/69
[2017-04-19 16:33] VITALS: BP 116/51
[2017-04-19] MEDS: HALOPERIDOL 5 MG TABLET PO SCH (20:47)
[2017-04-20] MEDS: FERROUS SULFATE 325 MG EC TABLET PO SCH ×2 (06:31→16:18)
[2017-04-20] MEDS: LEVOTHYROXINE SODIUM 25 MCG TABLET PO SCH (06:31)
[2017-04-20] MEDS: SODIUM CHLORIDE 1 GM TABLET PO SCH ×2 (08:18→16:16)
[2017-04-20] MEDS: CHOLECALCIFEROL (VIT D3) 1,000 UNITS TABLET PO SCH (08:19)
[2017-04-20] MEDS: DOCUSATE SODIUM 100 MG CAPSULE PO SCH ×2 (08:19→16:16)
[2017-04-20] MEDS: CloZAPine 100 MG TABLET PO SCH ×2 (08:19→21:43)
[2017-04-20] MEDS: CarBAMazepine 200 MG TABLET PO SCH ×3 (08:19→16:17)
[2017-04-20] MEDS: SIMVASTATIN 10 MG TABLET PO SCH (08:20)
[2017-04-20 08:38] VITALS: BP 121/86
[2017-04-20] MEDS: LORazepam 2 MG TABLET PO PRN (12:49)
[2017-04-20 20:42] VITALS: BP 129/84
[2017-04-20] MEDS: HALOPERIDOL 5 MG TABLET PO SCH (21:44)
[2017-04-21] MEDS: FERROUS SULFATE 325 MG EC TABLET PO SCH ×2 (07:02→16:31)
[2017-04-21] MEDS: LEVOTHYROXINE SODIUM 25 MCG TABLET PO SCH (07:02)
[2017-04-21 07:07] LABS: ANION GAP 6 mmol/L (8-16); CALCIUM, TOTAL 8.1 mg/dL (8.8-10.5); CARBON DIOXIDE 28 mmol/L (22-29); CHLORIDE 96 mmol/L (98-107); CREATININE 0.86 mg/dL (0.60-1.30); GLOMERULAR FILTR. RATE CALC > 60 mL/min (>60); POTASSIUM 4.4 mmol/L (3.5-5.1); SODIUM SERUM 130 mmol/L (136-145); UREA NITROGEN, BLOOD 10 mg/dL (7-18)
[2017-04-21] MEDS: LORazepam 2 MG TABLET PO PRN ×2 (07:57→16:56)
[2017-04-21] MEDS: DOCUSATE SODIUM 100 MG CAPSULE PO SCH ×2 (08:11→16:08)
[2017-04-21] MEDS: CarBAMazepine 200 MG TABLET PO SCH ×3 (08:11→16:08)
[2017-04-21] MEDS: SODIUM CHLORIDE 1 GM TABLET PO SCH ×2 (08:11→16:08)
[2017-04-21] MEDS: CloZAPine 100 MG TABLET PO SCH ×2 (08:11→20:14)
[2017-04-21] MEDS: CHOLECALCIFEROL (VIT D3) 1,000 UNITS TABLET PO SCH (08:11)
[2017-04-21] MEDS: SIMVASTATIN 10 MG TABLET PO SCH (08:12)
[2017-04-21 08:55] VITALS: BP 127/74
[2017-04-21] MEDS: HALOPERIDOL 5 MG TABLET PO PRN ×2 (11:46→16:56)
[2017-04-21] MEDS ORDERED: HALOPERIDOL LACTATE 5 MG/ML VIAL IM ONE (18:00)
[2017-04-21] MEDS ORDERED: LORazepam 2 MG/ML VIAL IM ONE (18:00)
[2017-04-21 18:07] VITALS: BP 141/81
[2017-04-21] MEDS: HALOPERIDOL 5 MG TABLET PO SCH (20:14)
[2017-04-22 02:25] VITALS: BP 128/80
[2017-04-22] MEDS: ZOLPIDEM TARTRATE 10 MG TABLET PO PRN (02:30)
[2017-04-22] MEDS: LEVOTHYROXINE SODIUM 25 MCG TABLET PO SCH (06:59)
[2017-04-22] MEDS: FERROUS SULFATE 325 MG EC TABLET PO SCH ×2 (06:59→16:35)
[2017-04-22] MEDS: SODIUM CHLORIDE 1 GM TABLET PO SCH ×2 (08:11→16:35)
[2017-04-22] MEDS: CHOLECALCIFEROL (VIT D3) 1,000 UNITS TABLET PO SCH (08:11)
[2017-04-22] MEDS: CarBAMazepine 200 MG TABLET PO SCH ×3 (08:11→16:35)
[2017-04-22] MEDS: CloZAPine 100 MG TABLET PO SCH ×2 (08:11→20:08)
[2017-04-22] MEDS: DOCUSATE SODIUM 100 MG CAPSULE PO SCH ×2 (08:11→16:35)
[2017-04-22] MEDS: SIMVASTATIN 10 MG TABLET PO SCH (08:12)
[2017-04-22] MEDS: LORazepam 2 MG TABLET PO PRN ×2 (11:36→16:36)
[2017-04-22] MEDS: HALOPERIDOL 5 MG TABLET PO PRN ×2 (12:29→16:36)
[2017-04-22] MEDS: HALOPERIDOL 5 MG TABLET PO SCH (20:09)
[2017-04-23] MEDS: LEVOTHYROXINE SODIUM 25 MCG TABLET PO SCH (06:58)
[2017-04-23] MEDS: FERROUS SULFATE 325 MG EC TABLET PO SCH ×2 (06:58→17:00)
[2017-04-23] MEDS: LORazepam 2 MG TABLET PO PRN ×2 (08:00→15:53)
[2017-04-23] MEDS: HALOPERIDOL 5 MG TABLET PO PRN ×2 (08:00→15:53)
[2017-04-23] MEDS: CloZAPine 100 MG TABLET PO SCH ×2 (10:41→21:00)
[2017-04-23] MEDS: DOCUSATE SODIUM 100 MG CAPSULE PO SCH ×2 (10:41→17:00)
[2017-04-23] MEDS: CarBAMazepine 200 MG TABLET PO SCH ×3 (10:42→17:01)
[2017-04-23] MEDS: CHOLECALCIFEROL (VIT D3) 1,000 UNITS TABLET PO SCH (10:42)
[2017-04-23] MEDS: SODIUM CHLORIDE 1 GM TABLET PO SCH ×2 (10:42→17:01)
[2017-04-23] MEDS: SIMVASTATIN 10 MG TABLET PO SCH (10:43)
[2017-04-23 11:41] VITALS: BP 124/67
[2017-04-23 16:45] VITALS: BP 130/74
[2017-04-23] MEDS: ZOLPIDEM TARTRATE 10 MG TABLET PO PRN (21:01)
[2017-04-23] MEDS: HALOPERIDOL 5 MG TABLET PO SCH (21:01)
[2017-04-24] MEDS: LEVOTHYROXINE SODIUM 25 MCG TABLET PO SCH (06:59)
[2017-04-24] MEDS: FERROUS SULFATE 325 MG EC TABLET PO SCH ×2 (06:59→16:12)
[2017-04-24 08:01] VITALS: BP 121/85
[2017-04-24] MEDS: CarBAMazepine 200 MG TABLET PO SCH ×3 (08:47→16:13)
[2017-04-24] MEDS: CloZAPine 100 MG TABLET PO SCH ×2 (08:47→21:24)
[2017-04-24] MEDS: SODIUM CHLORIDE 1 GM TABLET PO SCH ×2 (08:47→16:38)
[2017-04-24] MEDS: DOCUSATE SODIUM 100 MG CAPSULE PO SCH ×2 (08:47→16:12)
[2017-04-24] MEDS: SIMVASTATIN 10 MG TABLET PO SCH (08:48)
[2017-04-24] MEDS: CHOLECALCIFEROL (VIT D3) 1,000 UNITS TABLET PO SCH (08:48)
[2017-04-24] MEDS: HALOPERIDOL 5 MG TABLET PO PRN ×2 (12:01→16:12)
[2017-04-24] MEDS: LORazepam 2 MG TABLET PO PRN ×2 (12:01→16:13)
[2017-04-24 16:55] VITALS: BP 126/82
[2017-04-24] MEDS: ZOLPIDEM TARTRATE 10 MG TABLET PO PRN (21:25)
[2017-04-24] MEDS: HALOPERIDOL 5 MG TABLET PO SCH (21:25)
[2017-04-25] MEDS: LEVOTHYROXINE SODIUM 25 MCG TABLET PO SCH (07:00)
[2017-04-25] MEDS: FERROUS SULFATE 325 MG EC TABLET PO SCH ×2 (07:00→16:04)
[2017-04-25] MEDS: SODIUM CHLORIDE 1 GM TABLET PO SCH ×2 (08:07→16:04)
[2017-04-25] MEDS: DOCUSATE SODIUM 100 MG CAPSULE PO SCH ×2 (08:07→16:04)
[2017-04-25] MEDS: CHOLECALCIFEROL (VIT D3) 1,000 UNITS TABLET PO SCH (08:07)
[2017-04-25] MEDS: CloZAPine 100 MG TABLET PO SCH ×2 (08:07→20:16)
[2017-04-25] MEDS: LORazepam 2 MG TABLET PO PRN ×3 (08:07→17:24)
[2017-04-25] MEDS: HALOPERIDOL 5 MG TABLET PO PRN ×3 (08:07→17:24)
[2017-04-25] MEDS: CarBAMazepine 200 MG TABLET PO SCH ×3 (08:07→16:04)
[2017-04-25] MEDS: SIMVASTATIN 10 MG TABLET PO SCH (08:08)
[2017-04-25 08:14] VITALS: BP 143/66
[2017-04-25 16:30] VITALS: BP 136/96
[2017-04-25] MEDS: HALOPERIDOL 5 MG TABLET PO SCH (20:16)
[2017-04-26] MEDS: FERROUS SULFATE 325 MG EC TABLET PO SCH ×2 (06:55→17:43)
[2017-04-26] MEDS: LEVOTHYROXINE SODIUM 25 MCG TABLET PO SCH (06:55)
[2017-04-26] MEDS: DOCUSATE SODIUM 100 MG CAPSULE PO SCH ×2 (08:38→17:43)
[2017-04-26] MEDS: SODIUM CHLORIDE 1 GM TABLET PO SCH ×2 (08:38→17:43)
[2017-04-26] MEDS: CHOLECALCIFEROL (VIT D3) 1,000 UNITS TABLET PO SCH (08:39)
[2017-04-26] MEDS: CloZAPine 100 MG TABLET PO SCH ×2 (08:39→20:12)
[2017-04-26] MEDS: SIMVASTATIN 10 MG TABLET PO SCH (08:40)
[2017-04-26] MEDS: CarBAMazepine 200 MG TABLET PO SCH ×3 (08:40→17:43)
[2017-04-26] MEDS: HALOPERIDOL 5 MG TABLET PO PRN (12:02)
[2017-04-26] MEDS: LORazepam 2 MG TABLET PO PRN (15:07)
[2017-04-26 17:07] VITALS: BP 141/95
[2017-04-26] MEDS: HALOPERIDOL 5 MG TABLET PO SCH (20:12)
[2017-04-27 05:45] LABS: BASOPHILS % (AUTO) 0.4 % (0.0-2.0); EOSINOPHILS % (AUTO) 1.6 % (1.0-6.0); HEMOGLOBIN 12.4 g/dL (13.5-17.5); LYMPHOCYTES # (AUTO) 2.6 K/uL (1.0-4.8); LYMPHOCYTES % (AUTO) 39.6 % (22.0-44.0); MEAN CORPUSCULAR HEMOGLOBIN 30.5 pg (26.0-34.0); MEAN CORPUSCULAR HGB CONC 33.6 G/dL (31.0-37.0); MEAN CORPUSCULAR VOLUME 91 fL (80-100); MONOCYTES # (AUTO) 0.8 K/uL (0.1-1.0); MONOCYTES % (AUTO) 11.9 % (2.0-9.0); NEUTROPHILS % (AUTO) 46.5 % (40.0-70.0); PLATELET COUNT (AUTO) 350 K/uL (150-450); RED BLOOD CELL COUNT(AUTO) 4.07 MIL/uL (4.50-5.90); RED CELL DISTRIBUTION WIDTH 13.1 % (11.5-14.5); WHITE BLOOD COUNT (AUTO) 6.5 K/uL (4.5-11.0)
[2017-04-27] MEDS: LEVOTHYROXINE SODIUM 25 MCG TABLET PO SCH (07:03)
[2017-04-27] MEDS: FERROUS SULFATE 325 MG EC TABLET PO SCH ×2 (07:03→17:24)
[2017-04-27] MEDS: SODIUM CHLORIDE 1 GM TABLET PO SCH ×2 (08:32→17:23)
[2017-04-27] MEDS: HALOPERIDOL 5 MG TABLET PO PRN ×2 (08:32→13:12)
[2017-04-27] MEDS: LORazepam 2 MG TABLET PO PRN ×3 (08:32→17:25)
[2017-04-27] MEDS: CloZAPine 100 MG TABLET PO SCH ×2 (08:32→20:17)
[2017-04-27] MEDS: DOCUSATE SODIUM 100 MG CAPSULE PO SCH ×2 (08:32→17:24)
[2017-04-27] MEDS: SIMVASTATIN 10 MG TABLET PO SCH (08:33)
[2017-04-27] MEDS: CarBAMazepine 200 MG TABLET PO SCH ×3 (08:33→17:23)
[2017-04-27] MEDS: CHOLECALCIFEROL (VIT D3) 1,000 UNITS TABLET PO SCH (08:33)
[2017-04-27 16:13] VITALS: BP 129/77
[2017-04-28] MEDS: FERROUS SULFATE 325 MG EC TABLET PO SCH ×2 (06:56→16:05)
[2017-04-28] MEDS: LEVOTHYROXINE SODIUM 25 MCG TABLET PO SCH (06:56)
[2017-04-28] MEDS: HALOPERIDOL 5 MG TABLET PO PRN ×2 (07:55→12:05)
[2017-04-28] MEDS: LORazepam 2 MG TABLET PO PRN ×3 (07:55→17:15)
[2017-04-28 08:05] VITALS: BP 128/68
[2017-04-28] MEDS: SODIUM CHLORIDE 1 GM TABLET PO SCH ×2 (09:07→16:05)
[2017-04-28] MEDS: CHOLECALCIFEROL (VIT D3) 1,000 UNITS TABLET PO SCH (09:07)
[2017-04-28] MEDS: CloZAPine 100 MG TABLET PO SCH ×2 (09:08→20:57)
[2017-04-28] MEDS: CarBAMazepine 200 MG TABLET PO SCH ×3 (09:08→16:06)
[2017-04-28] MEDS: BENZTROPINE MESYLATE 1 MG TABLET PO SCH ×2 (09:08→16:05)
[2017-04-28] MEDS: DOCUSATE SODIUM 100 MG CAPSULE PO SCH ×2 (09:08→16:05)
[2017-04-28] MEDS: SIMVASTATIN 10 MG TABLET PO SCH (09:09)
[2017-04-28] MEDS ORDERED: TUBERCULIN, PURIFIED PROTEIN DERIVATIVE 5 TU/0.1 ML SYG ID ONE (14:45)
[2017-04-28 17:18] VITALS: BP 107/84
[2017-04-29] MEDS: LEVOTHYROXINE SODIUM 25 MCG TABLET PO SCH (06:41)
[2017-04-29] MEDS: FERROUS SULFATE 325 MG EC TABLET PO SCH ×2 (06:41→18:37)
[2017-04-29 08:03] VITALS: BP 132/74
[2017-04-29] MEDS: BENZTROPINE MESYLATE 1 MG TABLET PO SCH ×2 (08:55→15:51)
[2017-04-29] MEDS: DOCUSATE SODIUM 100 MG CAPSULE PO SCH ×2 (08:55→15:51)
[2017-04-29] MEDS: CarBAMazepine 200 MG TABLET PO SCH ×3 (08:55→15:51)
[2017-04-29] MEDS: CloZAPine 100 MG TABLET PO SCH ×2 (08:55→20:19)
[2017-04-29] MEDS: CHOLECALCIFEROL (VIT D3) 1,000 UNITS TABLET PO SCH (08:56)
[2017-04-29] MEDS: SIMVASTATIN 10 MG TABLET PO SCH (08:56)
[2017-04-29] MEDS: HALOPERIDOL 5 MG TABLET PO PRN ×2 (08:56→14:12)
[2017-04-29] MEDS: SODIUM CHLORIDE 1 GM TABLET PO SCH ×2 (08:56→15:51)
[2017-04-29] MEDS: LORazepam 2 MG TABLET PO PRN ×2 (08:56→14:12)
[2017-04-29] MEDS: IBUPROFEN 400 MG TABLET PO PRN (12:22)
[2017-04-29 16:05] VITALS: BP 100/76
[2017-04-30] MEDS: FERROUS SULFATE 325 MG EC TABLET PO SCH ×2 (06:51→16:30)
[2017-04-30] MEDS: LEVOTHYROXINE SODIUM 25 MCG TABLET PO SCH (06:51)
[2017-04-30 08:05] VITALS: BP 105/74
[2017-04-30] MEDS: BENZTROPINE MESYLATE 1 MG TABLET PO SCH ×2 (08:19→16:30)
[2017-04-30] MEDS: SODIUM CHLORIDE 1 GM TABLET PO SCH ×2 (08:19→16:30)
[2017-04-30] MEDS: DOCUSATE SODIUM 100 MG CAPSULE PO SCH ×2 (08:19→16:30)
[2017-04-30] MEDS: CarBAMazepine 200 MG TABLET PO SCH ×3 (08:20→16:30)
[2017-04-30] MEDS: CloZAPine 100 MG TABLET PO SCH ×2 (08:20→20:03)
[2017-04-30] MEDS: LORazepam 2 MG TABLET PO PRN ×2 (08:20→12:30)
[2017-04-30] MEDS: SIMVASTATIN 10 MG TABLET PO SCH (08:20)
[2017-04-30] MEDS: CHOLECALCIFEROL (VIT D3) 1,000 UNITS TABLET PO SCH (08:20)
[2017-04-30] MEDS: HALOPERIDOL 5 MG TABLET PO PRN ×2 (09:21→14:01)
[2017-04-30] MEDS: IBUPROFEN 400 MG TABLET PO PRN (12:29)
[2017-04-30] MEDS: ZOLPIDEM TARTRATE 10 MG TABLET PO PRN (20:02)
[2017-04-30 20:33] VITALS: BP 114/81
[2017-05-01] MEDS: FERROUS SULFATE 325 MG EC TABLET PO SCH ×2 (06:42→16:08)
[2017-05-01] MEDS: LEVOTHYROXINE SODIUM 25 MCG TABLET PO SCH (06:42)
[2017-05-01 08:00] VITALS: BP 120/70
[2017-05-01] MEDS: SODIUM CHLORIDE 1 GM TABLET PO SCH ×2 (08:19→16:08)
[2017-05-01] MEDS: CHOLECALCIFEROL (VIT D3) 1,000 UNITS TABLET PO SCH (08:20)
[2017-05-01] MEDS: BENZTROPINE MESYLATE 1 MG TABLET PO SCH ×2 (08:20→16:08)
[2017-05-01] MEDS: SIMVASTATIN 10 MG TABLET PO SCH (08:20)
[2017-05-01] MEDS: CarBAMazepine 200 MG TABLET PO SCH ×3 (08:20→16:08)
[2017-05-01] MEDS: LORazepam 2 MG TABLET PO PRN ×2 (08:20→13:00)
[2017-05-01] MEDS: CloZAPine 100 MG TABLET PO SCH ×2 (08:20→20:06)
[2017-05-01] MEDS: DOCUSATE SODIUM 100 MG CAPSULE PO SCH ×2 (08:21→16:08)
[2017-05-01] MEDS: HALOPERIDOL 5 MG TABLET PO PRN (13:00)
[2017-05-01 17:10] VITALS: BP 124/66
[2017-05-01] MEDS: ZOLPIDEM TARTRATE 10 MG TABLET PO PRN (20:06)
[2017-05-02] MEDS: FERROUS SULFATE 325 MG EC TABLET PO SCH ×2 (06:57→16:12)
[2017-05-02] MEDS: LEVOTHYROXINE SODIUM 25 MCG TABLET PO SCH (06:57)
[2017-05-02 08:00] VITALS: BP 124/76
[2017-05-02] MEDS: SODIUM CHLORIDE 1 GM TABLET PO SCH ×2 (08:33→16:12)
[2017-05-02] MEDS: CHOLECALCIFEROL (VIT D3) 1,000 UNITS TABLET PO SCH (08:34)
[2017-05-02] MEDS: HALOPERIDOL 5 MG TABLET PO PRN ×2 (08:34→12:45)
[2017-05-02] MEDS: CarBAMazepine 200 MG TABLET PO SCH ×3 (08:34→16:12)
[2017-05-02] MEDS: CloZAPine 100 MG TABLET PO SCH ×2 (08:34→20:42)
[2017-05-02] MEDS: BENZTROPINE MESYLATE 1 MG TABLET PO SCH ×2 (08:34→16:12)
[2017-05-02] MEDS: DOCUSATE SODIUM 100 MG CAPSULE PO SCH ×2 (08:34→16:13)
[2017-05-02] MEDS: LORazepam 2 MG TABLET PO PRN ×3 (08:34→20:42)
[2017-05-02] MEDS: SIMVASTATIN 10 MG TABLET PO SCH (08:35)
[2017-05-02] MEDS: ACETAMINOPHEN 325 MG TABLET PO PRN (13:17)
[2017-05-02 16:27] VITALS: BP 118/80
[2017-05-03] MEDS: LEVOTHYROXINE SODIUM 25 MCG TABLET PO SCH (06:16)
[2017-05-03] MEDS: FERROUS SULFATE 325 MG EC TABLET PO SCH ×2 (06:18→16:19)
[2017-05-03 06:33] LABS: BASOPHILS # (AUTO) 0.03 K/uL (0.00-0.20); BASOPHILS % (AUTO) 0.5 % (0.0-2.0); EOSINOPHILS # (AUTO) 0.11 K/uL (0.00-0.70); EOSINOPHILS % (AUTO) 1.86 % (1.0-6.0); HEMATOCRIT 34.9 % (41-53); LYMPHOCYTES # (AUTO) 2.5 K/uL (1.0-4.8); LYMPHOCYTES % (AUTO) 42.5 % (22.0-44.0); MEAN CORPUSCULAR HEMOGLOBIN 30.7 pg (26.0-34.0); MEAN CORPUSCULAR HGB CONC 34.3 G/dL (31.0-37.0); MEAN CORPUSCULAR VOLUME 90 fL (80-100); MONOCYTES # (AUTO) 0.7 K/uL (0.1-1.0); MONOCYTES % (AUTO) 12.2 % (2.0-9.0); NEUTROPHILS # (AUTO) 2.6 K/uL (1.8-7.7); PLATELET COUNT (AUTO) 330 K/uL (150-450); RED BLOOD CELL COUNT(AUTO) 3.89 MIL/uL (4.50-5.90); RED CELL DISTRIBUTION WIDTH 13.3 % (11.5-14.5); WHITE BLOOD COUNT (AUTO) 5.9 K/uL (4.5-11.0)
[2017-05-03] MEDS: SODIUM CHLORIDE 1 GM TABLET PO SCH ×2 (08:19→16:19)
[2017-05-03] MEDS: HALOPERIDOL 5 MG TABLET PO PRN ×2 (08:19→12:14)
[2017-05-03] MEDS: LORazepam 2 MG TABLET PO PRN ×2 (08:20→12:14)
[2017-05-03] MEDS: CHOLECALCIFEROL (VIT D3) 1,000 UNITS TABLET PO SCH (08:20)
[2017-05-03] MEDS: BENZTROPINE MESYLATE 1 MG TABLET PO SCH ×2 (08:20→16:19)
[2017-05-03] MEDS: DOCUSATE SODIUM 100 MG CAPSULE PO SCH ×2 (08:20→16:19)
[2017-05-03] MEDS: CloZAPine 100 MG TABLET PO SCH ×2 (08:20→20:07)
[2017-05-03] MEDS: CarBAMazepine 200 MG TABLET PO SCH ×3 (08:20→16:19)
[2017-05-03] MEDS: SIMVASTATIN 10 MG TABLET PO SCH (08:20)
[2017-05-03 20:22] VITALS: BP 148/86
[2017-05-04] MEDS: LEVOTHYROXINE SODIUM 25 MCG TABLET PO SCH (07:13)
[2017-05-04] MEDS: FERROUS SULFATE 325 MG EC TABLET PO SCH ×2 (07:13→17:15)
[2017-05-04 08:00] VITALS: BP 114/68
[2017-05-04] MEDS: DOCUSATE SODIUM 100 MG CAPSULE PO SCH ×2 (08:37→17:15)
[2017-05-04] MEDS: SODIUM CHLORIDE 1 GM TABLET PO SCH ×2 (08:37→17:16)
[2017-05-04] MEDS: BENZTROPINE MESYLATE 1 MG TABLET PO SCH ×2 (08:37→17:15)
[2017-05-04] MEDS: SIMVASTATIN 10 MG TABLET PO SCH (08:37)
[2017-05-04] MEDS: CarBAMazepine 200 MG TABLET PO SCH ×3 (08:37→17:15)
[2017-05-04] MEDS: CloZAPine 100 MG TABLET PO SCH ×2 (08:37→20:03)
[2017-05-04] MEDS: CHOLECALCIFEROL (VIT D3) 1,000 UNITS TABLET PO SCH (08:39)
[2017-05-04] MEDS: HALOPERIDOL 5 MG TABLET PO PRN ×2 (09:47→17:15)
[2017-05-04] MEDS: LORazepam 2 MG TABLET PO PRN ×2 (09:47→17:15)
[2017-05-04] MEDS: IBUPROFEN 400 MG TABLET PO PRN (10:36)
[2017-05-04 16:37] VITALS: BP 114/73
[2017-05-04] MEDS ORDERED: PALIPERIDONE PALMITATE 234 MG/1.5 ML SYRINGE IM SCH (18:15)
[2017-05-04 20:06] VITALS: BP 140/90
[2017-05-05] MEDS: LEVOTHYROXINE SODIUM 25 MCG TABLET PO SCH (06:56)
[2017-05-05] MEDS: FERROUS SULFATE 325 MG EC TABLET PO SCH ×2 (06:56→16:39)
[2017-05-05 08:00] VITALS: BP 129/78
[2017-05-05 08:38] VITALS: BP 129/78
[2017-05-05] MEDS: CarBAMazepine 200 MG TABLET PO SCH ×3 (08:52→16:39)
[2017-05-05] MEDS: DOCUSATE SODIUM 100 MG CAPSULE PO SCH ×2 (08:52→16:39)
[2017-05-05] MEDS: CloZAPine 100 MG TABLET PO SCH ×2 (08:53→20:15)
[2017-05-05] MEDS: BENZTROPINE MESYLATE 1 MG TABLET PO SCH ×2 (08:53→16:39)
[2017-05-05] MEDS: CHOLECALCIFEROL (VIT D3) 1,000 UNITS TABLET PO SCH (08:54)
[2017-05-05] MEDS: SODIUM CHLORIDE 1 GM TABLET PO SCH ×2 (08:54→16:39)
[2017-05-05] MEDS: SIMVASTATIN 10 MG TABLET PO SCH (08:55)
[2017-05-05] MEDS: LORazepam 2 MG TABLET PO PRN ×2 (10:05→16:38)
[2017-05-05] MEDS: HALOPERIDOL 5 MG TABLET PO PRN (10:06)
[2017-05-05 16:42] VITALS: BP 133/85
[2017-05-05] MEDS: ZOLPIDEM TARTRATE 10 MG TABLET PO PRN (20:15)
[2017-05-06] MEDS: LEVOTHYROXINE SODIUM 25 MCG TABLET PO SCH (07:01)
[2017-05-06] MEDS: FERROUS SULFATE 325 MG EC TABLET PO SCH ×2 (07:01→16:00)
[2017-05-06 08:00] VITALS: BP 103/84
[2017-05-06] MEDS: CarBAMazepine 200 MG TABLET PO SCH ×3 (08:02→16:00)
[2017-05-06] MEDS: CHOLECALCIFEROL (VIT D3) 1,000 UNITS TABLET PO SCH (08:02)
[2017-05-06] MEDS: CloZAPine 100 MG TABLET PO SCH ×2 (08:02→20:08)
[2017-05-06] MEDS: DOCUSATE SODIUM 100 MG CAPSULE PO SCH ×2 (08:02→16:00)
[2017-05-06] MEDS: SODIUM CHLORIDE 1 GM TABLET PO SCH ×2 (08:03→16:00)
[2017-05-06] MEDS: BENZTROPINE MESYLATE 1 MG TABLET PO SCH ×2 (08:03→16:00)
[2017-05-06] MEDS: SIMVASTATIN 10 MG TABLET PO SCH (08:05)
[2017-05-06] MEDS: LORazepam 2 MG TABLET PO PRN (09:09)
[2017-05-06] MEDS: HALOPERIDOL 5 MG TABLET PO PRN (09:10)
[2017-05-06] MEDS: HYPROMELLOSE 0.5% 15 ML OPHTHALMIC SOLUTION OU PRN (20:32)
[2017-05-06 22:08] VITALS: BP 129/79
[2017-05-07] MEDS: LEVOTHYROXINE SODIUM 25 MCG TABLET PO SCH (06:50)
[2017-05-07] MEDS: FERROUS SULFATE 325 MG EC TABLET PO SCH ×2 (06:51→16:13)
[2017-05-07 08:00] VITALS: BP 143/71
[2017-05-07] MEDS: SODIUM CHLORIDE 1 GM TABLET PO SCH ×2 (08:01→16:12)
[2017-05-07] MEDS: SIMVASTATIN 10 MG TABLET PO SCH (08:02)
[2017-05-07] MEDS: CloZAPine 100 MG TABLET PO SCH ×2 (08:02→20:56)
[2017-05-07] MEDS: CHOLECALCIFEROL (VIT D3) 1,000 UNITS TABLET PO SCH (08:03)
[2017-05-07] MEDS: CarBAMazepine 200 MG TABLET PO SCH ×3 (08:03→16:13)
[2017-05-07] MEDS: DOCUSATE SODIUM 100 MG CAPSULE PO SCH ×2 (08:03→16:12)
[2017-05-07] MEDS: LORazepam 2 MG TABLET PO PRN ×2 (08:03→16:12)
[2017-05-07] MEDS: BENZTROPINE MESYLATE 1 MG TABLET PO SCH ×2 (08:04→16:13)
[2017-05-07] MEDS: HALOPERIDOL 5 MG TABLET PO PRN ×2 (08:05→16:12)
[2017-05-07 16:00] VITALS: BP 130/85
[2017-05-07] MEDS: ZOLPIDEM TARTRATE 10 MG TABLET PO PRN (21:52)
[2017-05-08] MEDS: LEVOTHYROXINE SODIUM 25 MCG TABLET PO SCH (06:34)
[2017-05-08] MEDS: FERROUS SULFATE 325 MG EC TABLET PO SCH ×2 (06:35→16:23)
[2017-05-08] MEDS: CHOLECALCIFEROL (VIT D3) 1,000 UNITS TABLET PO SCH (07:44)
[2017-05-08] MEDS: CarBAMazepine 200 MG TABLET PO SCH ×3 (07:44→16:23)
[2017-05-08] MEDS: DOCUSATE SODIUM 100 MG CAPSULE PO SCH ×2 (07:44→16:23)
[2017-05-08] MEDS: BENZTROPINE MESYLATE 1 MG TABLET PO SCH ×2 (07:44→16:23)
[2017-05-08] MEDS: SODIUM CHLORIDE 1 GM TABLET PO SCH ×2 (07:44→16:23)
[2017-05-08] MEDS: CloZAPine 100 MG TABLET PO SCH ×2 (07:44→20:45)
[2017-05-08] MEDS: SIMVASTATIN 10 MG TABLET PO SCH (07:45)
[2017-05-08 08:00] VITALS: BP 126/72
[2017-05-08] MEDS: HALOPERIDOL 5 MG TABLET PO PRN (16:23)
[2017-05-08] MEDS ORDERED: HALOPERIDOL LACTATE 5 MG/ML VIAL IM ONE (17:15)
[2017-05-08] MEDS ORDERED: LORazepam 2 MG/ML VIAL IM ONE (17:15)
[2017-05-08 18:05] VITALS: BP 136/70
[2017-05-08] MEDS: LORazepam 2 MG TABLET PO PRN (20:45)
[2017-05-08] MEDS: ZOLPIDEM TARTRATE 10 MG TABLET PO PRN (21:09)
[2017-05-09] MEDS: FERROUS SULFATE 325 MG EC TABLET PO SCH ×2 (06:51→18:00)
[2017-05-09] MEDS: LEVOTHYROXINE SODIUM 25 MCG TABLET PO SCH (06:51)
[2017-05-09 08:02] VITALS: BP 116/78
[2017-05-09] MEDS: CloZAPine 100 MG TABLET PO SCH ×2 (08:14→20:40)
[2017-05-09] MEDS: BENZTROPINE MESYLATE 1 MG TABLET PO SCH ×2 (08:15→16:27)
[2017-05-09] MEDS: SODIUM CHLORIDE 1 GM TABLET PO SCH ×2 (08:15→16:27)
[2017-05-09] MEDS: CarBAMazepine 200 MG TABLET PO SCH ×3 (08:15→16:26)
[2017-05-09] MEDS: SIMVASTATIN 10 MG TABLET PO SCH (08:16)
[2017-05-09] MEDS: CHOLECALCIFEROL (VIT D3) 1,000 UNITS TABLET PO SCH (08:16)
[2017-05-09] MEDS: DOCUSATE SODIUM 100 MG CAPSULE PO SCH ×2 (08:16→16:27)
[2017-05-09] MEDS: LORazepam 2 MG TABLET PO PRN ×2 (09:25→15:42)
[2017-05-09] MEDS: HALOPERIDOL 5 MG TABLET PO PRN ×2 (09:25→15:42)
[2017-05-09] MEDS: HYPROMELLOSE 0.5% 15 ML OPHTHALMIC SOLUTION OU PRN (12:37)
[2017-05-09 16:11] VITALS: BP 124/74
[2017-05-09] MEDS ORDERED: LORazepam 2 MG/ML VIAL IM ONE (20:15)
[2017-05-09] MEDS ORDERED: HALOPERIDOL LACTATE 5 MG/ML VIAL IM ONE (20:15)
[2017-05-09] MEDS: ZOLPIDEM TARTRATE 10 MG TABLET PO PRN (21:47)
[2017-05-10] MEDS: HALOPERIDOL 5 MG TABLET PO PRN (01:33)
[2017-05-10] MEDS ORDERED: ONDANSETRON HCL 4 MG/2 ML VIAL IM PRN (06:15)
[2017-05-10 06:16] VITALS: BP 135/76
[2017-05-10] MEDS: LEVOTHYROXINE SODIUM 25 MCG TABLET PO SCH (06:54)
[2017-05-10] MEDS: FERROUS SULFATE 325 MG EC TABLET PO SCH ×2 (06:54→17:21)
[2017-05-10] MEDS: CarBAMazepine 200 MG TABLET PO SCH ×3 (08:21→17:21)
[2017-05-10] MEDS: BENZTROPINE MESYLATE 1 MG TABLET PO SCH ×2 (08:21→17:21)
[2017-05-10] MEDS: DOCUSATE SODIUM 100 MG CAPSULE PO SCH ×2 (08:21→17:21)
[2017-05-10] MEDS: CloZAPine 100 MG TABLET PO SCH ×2 (08:24→21:49)
[2017-05-10] MEDS: SODIUM CHLORIDE 1 GM TABLET PO SCH ×2 (08:25→17:22)
[2017-05-10] MEDS: CHOLECALCIFEROL (VIT D3) 1,000 UNITS TABLET PO SCH (08:25)
[2017-05-10] MEDS: SIMVASTATIN 10 MG TABLET PO SCH (08:25)
[2017-05-10 09:15] LABS: BASOPHILS % (AUTO) 0.2 % (0.0-2.0); EOSINOPHILS % (AUTO) 0.4 % (1.0-6.0); HEMATOCRIT 40.6 % (41-53); HEMOGLOBIN 13.8 g/dL (13.5-17.5); LYMPHOCYTES # (AUTO) 0.8 K/uL (1.0-4.8); LYMPHOCYTES % (AUTO) 6.9 % (22.0-44.0); MEAN CORPUSCULAR HEMOGLOBIN 30.6 pg (26.0-34.0); MEAN CORPUSCULAR HGB CONC 33.9 G/dL (31.0-37.0); MEAN CORPUSCULAR VOLUME 90 fL (80-100); MONOCYTES # (AUTO) 1.5 K/uL (0.1-1.0); MONOCYTES % (AUTO) 13.5 % (2.0-9.0); NEUTROPHILS # (AUTO) 8.9 K/uL (1.8-7.7); PLATELET COUNT (AUTO) 427 K/uL (150-450); RED CELL DISTRIBUTION WIDTH 13.2 % (11.5-14.5); WHITE BLOOD COUNT (AUTO) 11.2 K/uL (4.5-11.0)
[2017-05-10 09:55] VITALS: BP 112/64
[2017-05-10 16:30] VITALS: BP 131/93
[2017-05-10] MEDS ORDERED: HALOPERIDOL 5 MG TABLET PO ONE (17:15)
[2017-05-10] MEDS: LORazepam 2 MG TABLET PO PRN (17:21)
[2017-05-10] MEDS ORDERED: HALOPERIDOL LACTATE 5 MG/ML VIAL IM ONE (19:00)
[2017-05-10] MEDS ORDERED: LORazepam 2 MG/ML VIAL IM ONE (19:00)
[2017-05-11 05:50] VITALS: BP 134/73
[2017-05-11] MEDS: FERROUS SULFATE 325 MG EC TABLET PO SCH ×2 (07:03→16:57)
[2017-05-11] MEDS: LEVOTHYROXINE SODIUM 25 MCG TABLET PO SCH (07:03)
[2017-05-11] MEDS: CloZAPine 100 MG TABLET PO SCH (08:01)
[2017-05-11] MEDS: BENZTROPINE MESYLATE 1 MG TABLET PO SCH ×2 (08:01→16:21)
[2017-05-11] MEDS: DOCUSATE SODIUM 100 MG CAPSULE PO SCH ×2 (08:02→16:21)
[2017-05-11] MEDS: SIMVASTATIN 10 MG TABLET PO SCH (08:02)
[2017-05-11] MEDS: CarBAMazepine 200 MG TABLET PO SCH ×3 (08:02→16:21)
[2017-05-11] MEDS: SODIUM CHLORIDE 1 GM TABLET PO SCH ×2 (08:02→16:21)
[2017-05-11] MEDS: CHOLECALCIFEROL (VIT D3) 1,000 UNITS TABLET PO SCH (08:02)
[2017-05-11 08:18] VITALS: BP 112/71
[2017-05-11] MEDS: ACETAMINOPHEN 325 MG TABLET PO PRN (08:21)
[2017-05-11] MEDS: LORazepam 2 MG TABLET PO PRN ×2 (11:23→16:21)
[2017-05-11] MEDS: HALOPERIDOL 5 MG TABLET PO PRN ×2 (11:24→16:21)
[2017-05-11 16:25] VITALS: BP 121/69
[2017-05-11 20:17] LABS: CALCIUM, TOTAL 9.5 mg/dL (8.8-10.5); CREATININE 1.81 mg/dL (0.60-1.30); POTASSIUM 5.3 mmol/L (3.5-5.1)
[2017-05-11] MEDS ORDERED: HALOPERIDOL 5 MG TABLET PO SCH (21:00)
[2017-05-11] MEDS ORDERED: ETOMIDATE 2 MG/ML 10 ML VIAL IVP ONE (21:20)
[2017-06-09] MEDS ORDERED: BENZ0.5T6 PO (12:56)
[2017-06-09] MEDS ORDERED: QUET25TA PO (12:56)
[2017-06-09] MEDS ORDERED: TRAZ-144 PO (12:56)
== END 2017-05-11 21:21 | disposition short-term general hospital (02) | DRG 750 ==
LOC: EMS 16:43 → 3EC 22:44
PROVIDERS: ADMIT Psychiatry & Neurology Child & Adolescent Psychiatry; ATTEND Psychiatry & Neurology Psychiatry
DX: F20.0 Paranoid schizophrenia (principal); R45.851 Suicidal ideations; E87.1 Hypo-osmolality and hyponatremia; I12.9 Hypertensive chronic kidney disease with stage 1 through stage 4 chronic kidney disease, or unspecified chronic kidney disease; E78.5 Hyperlipidemia, unspecified; E55.9 Vitamin D deficiency, unspecified; N18.9 Chronic kidney disease, unspecified; E03.9 Hypothyroidism, unspecified; D64.9 Anemia, unspecified; F23 Brief psychotic disorder; Z78.1 Physical restraint status; Z79.899 Other long term (current) drug therapy
CPT/HCPCS: 84443; 87081; 96372; 99285; G0480; J1200; J1630; J2060; J2405; J3490

== ENCOUNTER 2017-05-11 21:57 | Inpatient (IN) | payer OTHER ==
[~2017-05-11] VITALS: Ht 182.9 cm; Wt 64.3 kg
[~2017-05-11 21:57] MED LIST changes: +DSS100 PO; +ZOLP10TA7 PO
[2017-05-11 22:05] VITALS: BP 112/91
[2017-05-11] MEDS: SODIUM CHLORIDE 0.9% 1,000 ML IV SCH (22:43)
[2017-05-12] VITALS (7 sets, daily range): BP systolic 120–151; BP diastolic 76–119
[2017-05-12 02:06] LABS: EOSINOPHILS % (AUTO) 0 % (1.0-6.0); HEMATOCRIT 44.2 % (41-53); HEMOGLOBIN 14.9 g/dL (13.5-17.5); LYMPHOCYTES # (AUTO) 0.5 K/uL (1.0-4.8); LYMPHOCYTES % (AUTO) 4.8 % (22.0-44.0); MEAN CORPUSCULAR HEMOGLOBIN 30.8 pg (26.0-34.0); MEAN CORPUSCULAR HGB CONC 33.8 G/dL (31.0-37.0); MEAN CORPUSCULAR VOLUME 91 fL (80-100); MONOCYTES # (AUTO) 1.4 K/uL (0.1-1.0); MONOCYTES % (AUTO) 14.2 % (2.0-9.0); NEUTROPHILS # (AUTO) 8.1 K/uL (1.8-7.7); PLATELET COUNT (AUTO) 406 K/uL (150-450); RED BLOOD CELL COUNT(AUTO) 4.84 MIL/uL (4.50-5.90); RED CELL DISTRIBUTION WIDTH 12.9 % (11.5-14.5)
[2017-05-12 02:14] LABS: APPEARANCE,URINE CLOUDY (CLEAR); GLUCOSE, URINE (UA) NEGATIVE (NEGATIVE); KETONES,URINE TRACE mg/dL (NEGATIVE); LEUKOCYTE ESTERASE ,URINE NEGATIVE (NEGATIVE); OCCULT BLOOD,URINE TRACE (NEGATIVE); PROTEIN,URINE SEE CONFIRM (NEGATIVE)
[2017-05-12 02:16] LABS: ADD UA MICROSCOPIC YES
[2017-05-12 02:18] LABS: HEMOGLOBIN A1C 6.2 % (4.5-6.2)
[2017-05-12 02:29] LABS: ALBUMIN 4.4 g/dL (3.4-5.0); BILIRUBIN,TOTAL 0.4 mg/dL (0.1-1.0); CALCIUM, TOTAL 9.1 mg/dL (8.8-10.5); CREATININE 2.37 mg/dL (0.60-1.30); MAGNESIUM 2.1 mg/dL (1.80-2.40); PHOSPHORUS 5.9 mg/dL (2.5-4.9); POTASSIUM 5.9 mmol/L (3.5-5.1); THYROID STIMULATING HORMONE 0.87 uIU/mL (0.36-3.74); TOTAL PROTEIN, SERUM 9.2 g/dL (6.4-8.2)
[2017-05-12 02:42] LABS: SULFOSALICYLIC ACID,URINE 2+ (Negative)
[2017-05-12 02:43] LABS: SQUAMOUS EPITHELIAL CELL,UR Few /LPF (None Seen)
[2017-05-12 03:00] LABS: PROCALCITONIN (PCT) 0.43 ng/mL (<0.50)
[2017-05-12] MEDS ORDERED: INSULIN REGULAR, HUMAN 100 UNITS/ML IVP ONE (03:15)
[2017-05-12] MEDS ORDERED: DEXTROSE 50%-WATER 25 GM/50 ML SYRINGE IVP ONE (03:15)
[2017-05-12] MEDS: ONDANSETRON HCL 4 MG/2 ML VIAL IVP PRN ×2 (03:57→20:26)
[2017-05-12] MEDS: ACETAMINOPHEN 325 MG TABLET PO PRN ×2 (04:17→15:40)
[2017-05-12] MEDS: LEVOTHYROXINE SODIUM 25 MCG TABLET PO SCH (06:06)
[2017-05-12 07:50] LABS: CALCIUM, TOTAL 8.9 mg/dL (8.8-10.5); CREATININE 1.76 mg/dL (0.60-1.30); POTASSIUM 5.3 mmol/L (3.5-5.1)
[2017-05-12] MEDS: CHOLECALCIFEROL (VIT D3) 1,000 UNITS TABLET PO SCH (08:28)
[2017-05-12] MEDS: PANTOPRAZOLE SODIUM 40 MG DR TABLET PO SCH (08:28)
[2017-05-12] MEDS: FERROUS SULFATE 325 MG EC TABLET PO SCH ×2 (08:28→17:21)
[2017-05-12] MEDS: SIMVASTATIN 10 MG TABLET PO SCH (08:29)
[2017-05-12] MEDS ORDERED: CarBAMazepine 200 MG TABLET PO SCH (09:00)
[2017-05-12] MEDS ORDERED: HEPARIN SODIUM,PORCINE 5,000 UNITS/ML VIAL SQ SCH (09:00)
[2017-05-12] MEDS ORDERED: SODIUM CHLORIDE 0.9% IRRIG BTL 1,000 ML IRRIG ONE (09:51)
[2017-05-12] MEDS: SODIUM CHLORIDE 0.9% 1,000 ML IV SCH ×2 (10:25→19:49)
[2017-05-12 10:40] LABS: INR 1.1 (0.9-1.1)
[2017-05-12] MEDS: TAMSULOSIN HCL 0.4 MG CAPSULE PO SCH ×2 (11:16→22:31)
[2017-05-12 12:58] LABS: ANION GAP 9 mmol/L (8-16); CALCIUM, TOTAL 8.6 mg/dL (8.8-10.5); CARBON DIOXIDE 25 mmol/L (22-29); CHLORIDE 86 mmol/L (98-107); CREATININE 1.27 mg/dL (0.60-1.30); GLOMERULAR FILTR. RATE CALC > 60 mL/min (>60); POTASSIUM 4.4 mmol/L (3.5-5.1); UREA NITROGEN, BLOOD 37 mg/dL (7-18)
[2017-05-12 13:05] LABS: SODIUM SERUM 120 mmol/L (136-145)
[2017-05-12 18:08] LABS: ANION GAP 8 mmol/L (8-16); CALCIUM, TOTAL 8.3 mg/dL (8.8-10.5); CARBON DIOXIDE 25 mmol/L (22-29); CHLORIDE 89 mmol/L (98-107); CREATININE 0.97 mg/dL (0.60-1.30); GLOMERULAR FILTR. RATE CALC > 60 mL/min (>60); POTASSIUM 4.5 mmol/L (3.5-5.1); UREA NITROGEN, BLOOD 26 mg/dL (7-18)
[2017-05-12 18:36] LABS: SODIUM SERUM 122 mmol/L (136-145)
[2017-05-12] MEDS: LevETIRAcetam 500 MG TABLET PO SCH (22:31)
[2017-05-13 00:12] VITALS: BP 138/74
[2017-05-13 04:40] VITALS: BP 146/60
[2017-05-13] MEDS: SODIUM CHLORIDE 0.9% 1,000 ML IV SCH ×2 (05:49→16:45)
[2017-05-13] MEDS: LEVOTHYROXINE SODIUM 25 MCG TABLET PO SCH (05:50)
[2017-05-13 06:48] LABS: HEMATOCRIT 35.8 % (41-53); MEAN CORPUSCULAR HEMOGLOBIN 30.5 pg (26.0-34.0); MEAN CORPUSCULAR HGB CONC 33.5 G/dL (31.0-37.0); MEAN CORPUSCULAR VOLUME 91 fL (80-100); PLATELET COUNT (AUTO) 329 K/uL (150-450); RED BLOOD CELL COUNT(AUTO) 3.92 MIL/uL (4.50-5.90); RED CELL DISTRIBUTION WIDTH 13.2 % (11.5-14.5); WHITE BLOOD COUNT (AUTO) 7.7 K/uL (4.5-11.0)
[2017-05-13 07:09] LABS: ANION GAP 4 mmol/L (8-16); CALCIUM, TOTAL 8.6 mg/dL (8.8-10.5); CARBON DIOXIDE 31 mmol/L (22-29); CHLORIDE 89 mmol/L (98-107); CREATININE 0.97 mg/dL (0.60-1.30); GLOMERULAR FILTR. RATE CALC > 60 mL/min (>60); POTASSIUM 4.2 mmol/L (3.5-5.1); UREA NITROGEN, BLOOD 17 mg/dL (7-18); URIC ACID 3.2 mg/dL (2.6-7.2)
[2017-05-13 07:31] LABS: SODIUM SERUM 124 mmol/L (136-145)
[2017-05-13 07:37] VITALS: BP 139/82
[2017-05-13] MEDS: FERROUS SULFATE 325 MG EC TABLET PO SCH ×2 (08:24→17:57)
[2017-05-13] MEDS: PANTOPRAZOLE SODIUM 40 MG DR TABLET PO SCH (09:28)
[2017-05-13] MEDS: SIMVASTATIN 10 MG TABLET PO SCH (09:28)
[2017-05-13] MEDS: LevETIRAcetam 500 MG TABLET PO SCH ×2 (09:28→20:34)
[2017-05-13] MEDS: CHOLECALCIFEROL (VIT D3) 1,000 UNITS TABLET PO SCH (09:28)
[2017-05-13] MEDS: TAMSULOSIN HCL 0.4 MG CAPSULE PO SCH ×2 (09:28→20:34)
[2017-05-13 10:07] LABS: BAND NEUTROPHILS % (MANUAL) 3 % (1-5); LYMPHOCYTES % (MANUAL) 13 % (22-44); TOTAL CELLS COUNTED 100
[2017-05-13 10:08] LABS: RBC MORPHOLOGY COMMENT NORMAL RBC MORPH
[2017-05-13 11:48] VITALS: BP 140/83
[2017-05-13 12:18] LABS: ANION GAP 9 mmol/L (8-16); CALCIUM, TOTAL 7.9 mg/dL (8.8-10.5); CARBON DIOXIDE 29 mmol/L (22-29); CHLORIDE 91 mmol/L (98-107); GLOMERULAR FILTR. RATE CALC > 60 mL/min (>60); POTASSIUM 4.3 mmol/L (3.5-5.1); SODIUM SERUM 129 mmol/L (136-145); UREA NITROGEN, BLOOD 14 mg/dL (7-18)
[2017-05-13] MEDS: ONDANSETRON HCL 4 MG/2 ML VIAL IVP PRN ×2 (13:58→23:04)
[2017-05-13 14:24] LABS: ANION GAP 6 mmol/L (8-16); CARBON DIOXIDE 29 mmol/L (22-29); CHLORIDE 93 mmol/L (98-107); CREATININE 0.71 mg/dL (0.60-1.30); GLOMERULAR FILTR. RATE CALC > 60 mL/min (>60); POTASSIUM 4.1 mmol/L (3.5-5.1); SODIUM SERUM 128 mmol/L (136-145); UREA NITROGEN, BLOOD 12 mg/dL (7-18)
[2017-05-13 15:52] VITALS: BP 124/75
[2017-05-13] MEDS: ACETAMINOPHEN 325 MG TABLET PO PRN ×2 (18:45→23:09)
[2017-05-13 20:11] VITALS: BP 145/62
[2017-05-13 23:35] LABS: ANION GAP 7 mmol/L (8-16); CALCIUM, TOTAL 8.2 mg/dL (8.8-10.5); CARBON DIOXIDE 29 mmol/L (22-29); CHLORIDE 94 mmol/L (98-107); CREATININE 0.78 mg/dL (0.60-1.30); GLOMERULAR FILTR. RATE CALC > 60 mL/min (>60); SODIUM SERUM 130 mmol/L (136-145); UREA NITROGEN, BLOOD 11 mg/dL (7-18)
[2017-05-14] VITALS (9 sets, daily range): BP systolic 125–156; BP diastolic 68–95
[2017-05-14] MEDS: ONDANSETRON HCL 4 MG/2 ML VIAL IVP PRN ×3 (04:59→13:31)
[2017-05-14] MEDS: LEVOTHYROXINE SODIUM 25 MCG TABLET PO SCH (04:59)
[2017-05-14 06:37] LABS: ANION GAP 8 mmol/L (8-16); CALCIUM, TOTAL 8.5 mg/dL (8.8-10.5); CARBON DIOXIDE 29 mmol/L (22-29); CHLORIDE 94 mmol/L (98-107); CREATININE 0.78 mg/dL (0.60-1.30); GLOMERULAR FILTR. RATE CALC > 60 mL/min (>60); PHOSPHORUS 3.7 mg/dL (2.5-4.9); POTASSIUM 3.7 mmol/L (3.5-5.1); SODIUM SERUM 131 mmol/L (136-145); UREA NITROGEN, BLOOD 15 mg/dL (7-18)
[2017-05-14] MEDS: PANTOPRAZOLE SODIUM 40 MG DR TABLET PO SCH (07:54)
[2017-05-14] MEDS: LevETIRAcetam 500 MG TABLET PO SCH ×2 (07:55→21:00)
[2017-05-14] MEDS: FERROUS SULFATE 325 MG EC TABLET PO SCH ×2 (07:56→18:00)
[2017-05-14] MEDS: CHOLECALCIFEROL (VIT D3) 1,000 UNITS TABLET PO SCH (07:56)
[2017-05-14] MEDS: SIMVASTATIN 10 MG TABLET PO SCH (07:56)
[2017-05-14] MEDS: TAMSULOSIN HCL 0.4 MG CAPSULE PO SCH ×2 (07:56→21:00)
[2017-05-14] MEDS: SODIUM CHLORIDE 0.9% 1,000 ML IV SCH (08:14)
[2017-05-14 10:57] LABS: ANION GAP 8 mmol/L (8-16); CALCIUM, TOTAL 8.6 mg/dL (8.8-10.5); CARBON DIOXIDE 29 mmol/L (22-29); CHLORIDE 94 mmol/L (98-107); CREATININE 0.83 mg/dL (0.60-1.30); GLOMERULAR FILTR. RATE CALC > 60 mL/min (>60); SODIUM SERUM 131 mmol/L (136-145); UREA NITROGEN, BLOOD 16 mg/dL (7-18)
[2017-05-14] MEDS ORDERED: ONDANSETRON HCL 4 MG/2 ML VIAL IVP PRN (14:00)
[2017-05-14] MEDS: ACETAMINOPHEN 325 MG TABLET PO PRN (15:16)
[2017-05-14] MEDS ORDERED: ACETAMINOPHEN 325 MG RECTAL SUPPOSITORY PR PRN (15:30)
[2017-05-14] MEDS ORDERED: LORazepam 2 MG/ML VIAL IVP PRN (16:15)
[2017-05-14] MEDS: LORazepam 2 MG/ML VIAL IVP PRN ×2 (18:50→23:28)
[2017-05-14 20:42] LABS: ABG A-A DIFF O2 336.6 mmHg (10-20.0); ABG BASE EXCESS 4.7 mmol/L (-2.0-3.0); ABG HCO3 28.8 mmol/L (22.0-26.0); ABG OXYHEMOGLOBIN 88.1 % (94.0-100.0); ABG PCO2 33 mmHg (35-45); ABG PH 7.537 (7.350-7.450)
[2017-05-14 20:44] LABS: ALLEN TEST, BLOOD GAS Positive
[2017-05-14] MEDS ORDERED: PIPERACILLIN SODIUM/TAZOBACTAM 2.25 GM in DEXTROSE 5%-WATER 50 ML IV ONE (22:00)
[2017-05-14] MEDS ORDERED: VANCOMYCIN HCL 1 GM/D5% WATER 200 ML IV ONE (22:00)
[2017-05-14] MEDS: PROPOFOL 1000 MG/ISO-OSM 100 ML IV PRN ×2 (22:00→23:29)
[2017-05-14 22:23] LABS: CREATINE KINASE MB 7.6 ng/mL (0-5)
[2017-05-14 22:43] LABS: THYROID STIMULATING HORMONE 0.69 uIU/mL (0.36-3.74)
[2017-05-14 23:00] LABS: LACTIC ACID 2.3 mmol/L (0.4-2.0)
[2017-05-14 23:36] LABS: REFLEX LACTIC ACID? YES YES
[2017-05-15] VITALS (7 sets, daily range): BP systolic 115–137; BP diastolic 71–88
[2017-05-15] MEDS: PROPOFOL 1000 MG/ISO-OSM 100 ML IV PRN ×5 (03:44→18:52)
[2017-05-15] MEDS: SODIUM CHLORIDE 0.9% 1,000 ML IV SCH ×2 (03:47→18:52)
[2017-05-15 04:07] LABS: ABG PCO2 45 mmHg (35-45); ABG PH 7.379 (7.350-7.450); TEMPERATURE, FAHRENHEIT, BG 102.3 FAHREN (96.0-98.6)
[2017-05-15 04:08] LABS: ABG HCO3 25.2 mmol/L (22.0-26.0); ABG OXYHEMOGLOBIN 96.5 % (94.0-100.0)
[2017-05-15] MEDS: LORazepam 2 MG/ML VIAL IVP PRN ×3 (04:44→20:51)
[2017-05-15] MEDS: LEVOTHYROXINE SODIUM 25 MCG TABLET PO SCH (06:30)
[2017-05-15 06:38] LABS: ANION GAP 11 mmol/L (8-16); BASOPHILS % (AUTO) 0.2 % (0.0-2.0); CALCIUM, TOTAL 8.2 mg/dL (8.8-10.5); CARBON DIOXIDE 27 mmol/L (22-29); CHLORIDE 96 mmol/L (98-107); CREATININE 1.26 mg/dL (0.60-1.30); EOSINOPHILS % (AUTO) 0.1 % (1.0-6.0); GLOMERULAR FILTR. RATE CALC > 60 mL/min (>60); HEMATOCRIT 40.1 % (41-53); HEMOGLOBIN 13.6 g/dL (13.5-17.5); LYMPHOCYTES # (AUTO) 1.3 K/uL (1.0-4.8); LYMPHOCYTES % (AUTO) 12.2 % (22.0-44.0); MEAN CORPUSCULAR HEMOGLOBIN 30.9 pg (26.0-34.0); MEAN CORPUSCULAR HGB CONC 33.8 G/dL (31.0-37.0); MEAN CORPUSCULAR VOLUME 92 fL (80-100); MONOCYTES # (AUTO) 0.7 K/uL (0.1-1.0); MONOCYTES % (AUTO) 6.5 % (2.0-9.0); NEUTROPHILS # (AUTO) 8.6 K/uL (1.8-7.7); PLATELET COUNT (AUTO) 305 K/uL (150-450); POTASSIUM 3.3 mmol/L (3.5-5.1); RED BLOOD CELL COUNT(AUTO) 4.38 MIL/uL (4.50-5.90); SODIUM SERUM 134 mmol/L (136-145); UREA NITROGEN, BLOOD 27 mg/dL (7-18); WHITE BLOOD COUNT (AUTO) 10.6 K/uL (4.5-11.0)
[2017-05-15] MEDS: LevETIRAcetam 500 MG TABLET PO SCH (07:50)
[2017-05-15] MEDS: TAMSULOSIN HCL 0.4 MG CAPSULE PO SCH ×2 (07:50→19:43)
[2017-05-15] MEDS: FERROUS SULFATE 325 MG EC TABLET PO SCH ×2 (07:50→15:33)
[2017-05-15] MEDS: PANTOPRAZOLE SODIUM 40 MG DR TABLET PO SCH (07:51)
[2017-05-15] MEDS: CHOLECALCIFEROL (VIT D3) 1,000 UNITS TABLET PO SCH (07:51)
[2017-05-15] MEDS: SIMVASTATIN 10 MG TABLET PO SCH (07:51)
[2017-05-15 10:21] LABS: ANION GAP 11 mmol/L (8-16); CALCIUM, TOTAL 8.3 mg/dL (8.8-10.5); CARBON DIOXIDE 28 mmol/L (22-29); CHLORIDE 95 mmol/L (98-107); CREATININE 1.02 mg/dL (0.60-1.30); GLOMERULAR FILTR. RATE CALC > 60 mL/min (>60); SODIUM SERUM 134 mmol/L (136-145); UREA NITROGEN, BLOOD 23 mg/dL (7-18)
[2017-05-15 10:24] LABS: ABG BASE EXCESS 0.5 mmol/L (-2.0-3.0); ABG HCO3 25.1 mmol/L (22.0-26.0); ABG OXYHEMOGLOBIN 93.3 % (94.0-100.0); ABG PCO2 37 mmHg (35-45); ABG PH 7.438 (7.350-7.450); ALLEN TEST, BLOOD GAS Positive; TEMPERATURE, FAHRENHEIT, BG 98.6 FAHREN (96.0-98.6)
[2017-05-15 10:31] LABS: POTASSIUM 2.4 mmol/L (3.5-5.1)
[2017-05-15] MEDS: POTASSIUM CHL 10 MEQ/WATER 50 ML IV PRN ×9 (10:54→23:11)
[2017-05-15] MEDS ORDERED: VANCOMYCIN HCL 1 GM/D5% WATER 200 ML IV ONE (11:30)
[2017-05-15] MEDS: LevETIRAcetam 500 MG in DEXTROSE 5%-WATER 100 ML IV SCH (12:11)
[2017-05-15 12:12] LABS: GLUCOSE,POINT OF CARE 178 MG/DL (70-110)
[2017-05-15] MEDS: PIPERACILLIN/TAZO 3.375 GM/D5W 50 ML IV SCH ×3 (12:16→23:11)
[2017-05-15] MEDS ORDERED: SODIUM CHLORIDE 0.9% 250 ML IV ONE ×3 (14:07→16:27)
[2017-05-15] MEDS ORDERED: MAGNESIUM CITRATE 300 ML ORAL SOLUTION PO ONE (16:30)
[2017-05-15] MEDS: VANCOMYCIN HCL 1 GM/D5% WATER 200 ML IV SCH (16:50)
[2017-05-15] MEDS: LINACLOTIDE 290 MCG CAPSULE PO SCH (16:51)
[2017-05-15] MEDS ORDERED: POTASSIUM CHLORIDE 20 MEQ ER TABLET PO PRN (19:45)
[2017-05-16] VITALS: BP 138/70
[2017-05-16] MEDS: LevETIRAcetam 500 MG in DEXTROSE 5%-WATER 100 ML IV SCH ×3 (00:09→23:49)
[2017-05-16] MEDS: VANCOMYCIN HCL 1 GM/D5% WATER 200 ML IV SCH (00:09)
[2017-05-16] MEDS: POTASSIUM CHL 10 MEQ/WATER 50 ML IV PRN ×5 (00:10→08:45)
[2017-05-16] MEDS: PROPOFOL 1000 MG/ISO-OSM 100 ML IV PRN ×7 (00:15→23:48)
[2017-05-16 04:00] VITALS: BP 140/69
[2017-05-16] MEDS: LORazepam 2 MG/ML VIAL IVP PRN ×4 (04:55→22:37)
[2017-05-16] MEDS: PIPERACILLIN/TAZO 3.375 GM/D5W 50 ML IV SCH ×4 (04:55→22:05)
[2017-05-16] MEDS: LINACLOTIDE 290 MCG CAPSULE PO SCH (05:41)
[2017-05-16 05:42] LABS: ANION GAP 9 mmol/L (8-16); CALCIUM, TOTAL 8.5 mg/dL (8.8-10.5); CARBON DIOXIDE 30 mmol/L (22-29); CHLORIDE 93 mmol/L (98-107); CREATININE 0.85 mg/dL (0.60-1.30); GLOMERULAR FILTR. RATE CALC > 60 mL/min (>60); POTASSIUM 3.4 mmol/L (3.5-5.1); SODIUM SERUM 132 mmol/L (136-145); UREA NITROGEN, BLOOD 18 mg/dL (7-18)
[2017-05-16] MEDS: LEVOTHYROXINE SODIUM 25 MCG TABLET PO SCH (05:42)
[2017-05-16 05:51] LABS: EOSINOPHILS % (AUTO) 0.2 % (1.0-6.0); HEMATOCRIT 35.8 % (41-53); LYMPHOCYTES # (AUTO) 1.2 K/uL (1.0-4.8); LYMPHOCYTES % (AUTO) 4.9 % (22.0-44.0); MEAN CORPUSCULAR HEMOGLOBIN 30.8 pg (26.0-34.0); MEAN CORPUSCULAR HGB CONC 33.6 G/dL (31.0-37.0); MEAN CORPUSCULAR VOLUME 92 fL (80-100); MONOCYTES # (AUTO) 1.1 K/uL (0.1-1.0); MONOCYTES % (AUTO) 4.2 % (2.0-9.0); NEUTROPHILS # (AUTO) 22.7 K/uL (1.8-7.7); PLATELET COUNT (AUTO) 335 K/uL (150-450); RED CELL DISTRIBUTION WIDTH 13.2 % (11.5-14.5)
[2017-05-16 06:50] LABS: NEUTROPHILS % (AUTO) 90.7 % (40.0-70.0)
[2017-05-16] MEDS ORDERED: MAGNESIUM CITRATE 300 ML ORAL SOLUTION PO ONE (07:45)
[2017-05-16 08:00] VITALS: BP 134/84
[2017-05-16 08:11] LABS: ABG A-A DIFF O2 182.6 mmHg (10-20.0); ABG BASE EXCESS 4.8 mmol/L (-2.0-3.0); ABG HCO3 28.5 mmol/L (22.0-26.0); ABG OXYHEMOGLOBIN 91.9 % (94.0-100.0); ABG PCO2 37 mmHg (35-45); ABG PH 7.497 (7.350-7.450); TEMPERATURE, FAHRENHEIT, BG 97.6 FAHREN (96.0-98.6)
[2017-05-16 08:13] LABS: ALLEN TEST, BLOOD GAS Positive
[2017-05-16] MEDS: PANTOPRAZOLE SODIUM 40 MG/VIAL IVP SCH (08:33)
[2017-05-16] MEDS: FERROUS SULFATE 325 MG EC TABLET PO SCH ×2 (08:38→17:33)
[2017-05-16] MEDS: SIMVASTATIN 10 MG TABLET PO SCH (08:38)
[2017-05-16] MEDS: VANCOMYCIN HCL 1.25 GM in DEXTROSE 5%-WATER 250 ML IV SCH ×3 (08:38→23:49)
[2017-05-16] MEDS: TAMSULOSIN HCL 0.4 MG CAPSULE PO SCH ×2 (08:39→22:04)
[2017-05-16] MEDS: CHOLECALCIFEROL (VIT D3) 1,000 UNITS TABLET PO SCH (09:00)
[2017-05-16 09:10] LABS: RBC MORPHOLOGY COMMENT NORMAL RBC MORPH
[2017-05-16] MEDS ORDERED: SODIUM CHLORIDE 0.9% 250 ML IV ONE (10:04)
[2017-05-16 12:00] VITALS: BP 118/60
[2017-05-16 16:00] VITALS: BP 153/87
[2017-05-16] MEDS: SODIUM CHLORIDE 0.9% 1,000 ML IV SCH ×2 (17:33→22:05)
[2017-05-16 20:00] VITALS: BP 132/86
[2017-05-17] VITALS: BP 145/89
[2017-05-17] MEDS: PROPOFOL 1000 MG/ISO-OSM 100 ML IV PRN ×5 (03:00→19:03)
[2017-05-17] MEDS: LORazepam 2 MG/ML VIAL IVP PRN ×3 (03:04→21:34)
[2017-05-17] MEDS ORDERED: SODIUM CHLORIDE 0.9% 250 ML IV ONE ×2 (03:53→08:24)
[2017-05-17 04:00] VITALS: BP 141/71
[2017-05-17] MEDS: PIPERACILLIN/TAZO 3.375 GM/D5W 50 ML IV SCH ×2 (06:04→10:45)
[2017-05-17] MEDS: LINACLOTIDE 290 MCG CAPSULE PO SCH (06:05)
[2017-05-17] MEDS: LEVOTHYROXINE SODIUM 25 MCG TABLET PO SCH (06:05)
[2017-05-17 06:17] LABS: ANION GAP 5 mmol/L (8-16); CARBON DIOXIDE 31 mmol/L (22-29); CHLORIDE 92 mmol/L (98-107); CREATINE KINASE MB 2.5 ng/mL (0-5); CREATINE KINASE, TOTAL 343 U/L (39-308); CREATININE 0.66 mg/dL (0.60-1.30); GLOMERULAR FILTR. RATE CALC > 60 mL/min (>60); POTASSIUM 4.2 mmol/L (3.5-5.1); SODIUM SERUM 128 mmol/L (136-145); UREA NITROGEN, BLOOD 12 mg/dL (7-18)
[2017-05-17 08:00] VITALS: BP 138/84
[2017-05-17] MEDS: FERROUS SULFATE 325 MG EC TABLET PO SCH ×2 (08:27→17:31)
[2017-05-17] MEDS: VANCOMYCIN HCL 1.25 GM in DEXTROSE 5%-WATER 250 ML IV SCH (08:27)
[2017-05-17] MEDS: SIMVASTATIN 10 MG TABLET PO SCH (08:28)
[2017-05-17] MEDS: PANTOPRAZOLE SODIUM 40 MG/VIAL IVP SCH (08:28)
[2017-05-17] MEDS: CHOLECALCIFEROL (VIT D3) 1,000 UNITS TABLET PO SCH (08:28)
[2017-05-17] MEDS: TAMSULOSIN HCL 0.4 MG CAPSULE PO SCH ×2 (08:29→21:33)
[2017-05-17 09:01] LABS: HEMOGLOBIN 10.6 g/dL (13.5-17.5); MEAN CORPUSCULAR HEMOGLOBIN 30.9 pg (26.0-34.0); MEAN CORPUSCULAR HGB CONC 34.3 G/dL (31.0-37.0); MEAN CORPUSCULAR VOLUME 90 fL (80-100); PLATELET COUNT (AUTO) 326 K/uL (150-450); RED BLOOD CELL COUNT(AUTO) 3.44 MIL/uL (4.50-5.90); RED CELL DISTRIBUTION WIDTH 13.4 % (11.5-14.5); WHITE BLOOD COUNT (AUTO) 28.2 K/uL (4.5-11.0)
[2017-05-17 10:00] LABS: BAND NEUTROPHILS % (MANUAL) 28 % (1-5); LYMPHOCYTES % (MANUAL) 5 % (22-44); RBC MORPHOLOGY COMMENT NORMAL RBC MORPH; TOTAL CELLS COUNTED 100
[2017-05-17 10:19] LABS: ABG A-A DIFF O2 102.7 mmHg (10-20.0); ABG HCO3 26.2 mmol/L (22.0-26.0); ABG OXYHEMOGLOBIN 94.2 % (94.0-100.0); ABG PCO2 55 mmHg (35-45); ABG PH 7.335 (7.350-7.450); TEMPERATURE, FAHRENHEIT, BG 98.5 FAHREN (96.0-98.6)
[2017-05-17 10:20] LABS: ALLEN TEST, BLOOD GAS Positive
[2017-05-17] MEDS: SODIUM CHLORIDE 0.9% 1,000 ML IV SCH (10:46)
[2017-05-17 12:00] VITALS: BP 158/69
[2017-05-17] MEDS: LevETIRAcetam 500 MG in DEXTROSE 5%-WATER 100 ML IV SCH (13:11)
[2017-05-17] MEDS: ACETAMINOPHEN 325 MG TABLET PO PRN (13:12)
[2017-05-17] MEDS: CefTRIAXone 1 GM/DEXTROSE 50 ML IV SCH (14:28)
[2017-05-17 16:00] VITALS: BP 147/73
[2017-05-17] MEDS: VANCOMYCIN HCL 1.5 GM in DEXTROSE 5%-WATER 250 ML IV SCH (16:04)
[2017-05-17 16:23] LABS: ANION GAP 6 mmol/L (8-16); CALCIUM, TOTAL 8.4 mg/dL (8.8-10.5); CARBON DIOXIDE 30 mmol/L (22-29); CHLORIDE 93 mmol/L (98-107); CREATININE 0.61 mg/dL (0.60-1.30); GLOMERULAR FILTR. RATE CALC > 60 mL/min (>60); POTASSIUM 4.8 mmol/L (3.5-5.1); SODIUM SERUM 129 mmol/L (136-145); UREA NITROGEN, BLOOD 11 mg/dL (7-18)
[2017-05-17] MEDS: MetroNIDAZOLE 500 MG/NACL 100 ML IV SCH (18:09)
[2017-05-17 20:00] VITALS: BP 172/81
[2017-05-18] VITALS: BP 141/98
[2017-05-18] MEDS: VANCOMYCIN HCL 1.5 GM in DEXTROSE 5%-WATER 250 ML IV SCH ×3 (00:32→15:36)
[2017-05-18] MEDS: LevETIRAcetam 500 MG in DEXTROSE 5%-WATER 100 ML IV SCH (00:32)
[2017-05-18] MEDS: MetroNIDAZOLE 500 MG/NACL 100 ML IV SCH ×3 (01:07→17:46)
[2017-05-18] MEDS: SODIUM CHLORIDE 0.9% 1,000 ML IV SCH ×2 (01:09→17:44)
[2017-05-18] MEDS: LORazepam 2 MG/ML VIAL IVP PRN ×4 (02:07→20:20)
[2017-05-18 04:00] VITALS: BP 157/84
[2017-05-18] MEDS: PROPOFOL 1000 MG/ISO-OSM 100 ML IV PRN ×3 (04:10→20:15)
[2017-05-18 05:33] LABS: BASOPHILS % (AUTO) 0.2 % (0.0-2.0); EOSINOPHILS % (AUTO) 0.1 % (1.0-6.0); HEMOGLOBIN 10.2 g/dL (13.5-17.5); LYMPHOCYTES # (AUTO) 0.9 K/uL (1.0-4.8); LYMPHOCYTES % (AUTO) 3.7 % (22.0-44.0); MEAN CORPUSCULAR HEMOGLOBIN 30.5 pg (26.0-34.0); MEAN CORPUSCULAR HGB CONC 33.9 G/dL (31.0-37.0); MEAN CORPUSCULAR VOLUME 90 fL (80-100); MONOCYTES # (AUTO) 1.2 K/uL (0.1-1.0); MONOCYTES % (AUTO) 4.9 % (2.0-9.0); NEUTROPHILS # (AUTO) 21.4 K/uL (1.8-7.7); PLATELET COUNT (AUTO) 356 K/uL (150-450); RED BLOOD CELL COUNT(AUTO) 3.34 MIL/uL (4.50-5.90); RED CELL DISTRIBUTION WIDTH 13.3 % (11.5-14.5); WHITE BLOOD COUNT (AUTO) 23.5 K/uL (4.5-11.0)
[2017-05-18 05:35] LABS: NEUTROPHILS % (AUTO) 91.1 % (40.0-70.0)
[2017-05-18 05:42] LABS: ALANINE AMINOTRANSFERASE 29 U/L (12-78); ANION GAP 6 mmol/L (8-16); ASPARTATE AMINOTRANSFERASE 22 U/L (15-37); BILIRUBIN,TOTAL 0.3 mg/dL (0.1-1.0); CALCIUM, TOTAL 8.3 mg/dL (8.8-10.5); CARBON DIOXIDE 33 mmol/L (22-29); CHLORIDE 93 mmol/L (98-107); CREATININE 0.54 mg/dL (0.60-1.30); GLOMERULAR FILTR. RATE CALC > 60 mL/min (>60); POTASSIUM 3.4 mmol/L (3.5-5.1); SODIUM SERUM 132 mmol/L (136-145); TOTAL PROTEIN, SERUM 5.9 g/dL (6.4-8.2); UREA NITROGEN, BLOOD 9 mg/dL (7-18)
[2017-05-18] MEDS: LINACLOTIDE 290 MCG CAPSULE PO SCH (06:15)
[2017-05-18] MEDS: LEVOTHYROXINE SODIUM 25 MCG TABLET PO SCH (06:15)
[2017-05-18 07:44] LABS: RBC MORPHOLOGY COMMENT NORMAL RBC MORPH
[2017-05-18 09:12] LABS: ABG A-A DIFF O2 147.7 mmHg (10-20.0); ABG BASE EXCESS 6.7 mmol/L (-2.0-3.0); ABG HCO3 30.3 mmol/L (22.0-26.0); ABG OXYHEMOGLOBIN 97.3 % (94.0-100.0); ABG PCO2 36 mmHg (35-45); ABG PH 7.528 (7.350-7.450); TEMPERATURE, FAHRENHEIT, BG 98.6 FAHREN (96.0-98.6)
[2017-05-18 09:14] LABS: ALLEN TEST, BLOOD GAS Positive; INSIPIRATORY PRESSURE, BG 20 cm H2O
[2017-05-18] MEDS: PANTOPRAZOLE SODIUM 40 MG/VIAL IVP SCH (09:33)
[2017-05-18] MEDS: CHOLECALCIFEROL (VIT D3) 1,000 UNITS TABLET PO SCH (09:33)
[2017-05-18] MEDS: TAMSULOSIN HCL 0.4 MG CAPSULE PO SCH ×2 (09:33→20:54)
[2017-05-18] MEDS: SIMVASTATIN 10 MG TABLET PO SCH (09:34)
[2017-05-18] MEDS: FERROUS SULFATE 325 MG EC TABLET PO SCH ×2 (09:36→17:43)
[2017-05-18] MEDS: POTASSIUM CHL 10 MEQ/WATER 50 ML IV PRN ×5 (09:49→20:54)
[2017-05-18] MEDS: CefTRIAXone 1 GM/DEXTROSE 50 ML IV SCH (14:00)
[2017-05-18 15:48] VITALS: BP 129/76
[2017-05-18 16:00] VITALS: BP 126/76
[2017-05-18] MEDS ORDERED: POTASSIUM CHLORIDE 20 MEQ ER TABLET PO PRN (16:00)
[2017-05-18 20:00] VITALS: BP 151/98
[2017-05-18] MEDS: METOPROLOL SUCCINATE 25 MG ER TABLET PO SCH (20:54)
[2017-05-18] MEDS: ACETAMINOPHEN 325 MG TABLET PO PRN (20:55)
[2017-05-19] VITALS: BP 139/83
[2017-05-19] MEDS: PROPOFOL 1000 MG/ISO-OSM 100 ML IV PRN ×6 (00:02→21:05)
[2017-05-19] MEDS: LORazepam 2 MG/ML VIAL IVP PRN ×5 (00:36→21:04)
[2017-05-19] MEDS: MetroNIDAZOLE 500 MG/NACL 100 ML IV SCH ×3 (01:13→17:03)
[2017-05-19] MEDS: SODIUM CHLORIDE 0.9% 1,000 ML IV SCH ×2 (01:14→14:28)
[2017-05-19] MEDS: POTASSIUM CHL 10 MEQ/WATER 50 ML IV PRN ×10 (02:00→23:22)
[2017-05-19 04:00] VITALS: BP 157/83
[2017-05-19 06:06] LABS: BASOPHILS # (AUTO) 0.01 K/uL (0.00-0.20); BASOPHILS % (AUTO) 0.1 % (0.0-2.0); EOSINOPHILS # (AUTO) 0.05 K/uL (0.00-0.70); EOSINOPHILS % (AUTO) 0.45 % (1.0-6.0); HEMATOCRIT 29.3 % (41-53); HEMOGLOBIN 10.2 g/dL (13.5-17.5); LYMPHOCYTES # (AUTO) 0.7 K/uL (1.0-4.8); LYMPHOCYTES % (AUTO) 6.1 % (22.0-44.0); MEAN CORPUSCULAR HEMOGLOBIN 30.5 pg (26.0-34.0); MEAN CORPUSCULAR HGB CONC 34.7 G/dL (31.0-37.0); MEAN CORPUSCULAR VOLUME 88 fL (80-100); MONOCYTES % (AUTO) 8.7 % (2.0-9.0); NEUTROPHILS % (AUTO) 84.7 % (40.0-70.0); PLATELET COUNT (AUTO) 401 K/uL (150-450); RED BLOOD CELL COUNT(AUTO) 3.33 MIL/uL (4.50-5.90); RED CELL DISTRIBUTION WIDTH 12.9 % (11.5-14.5); WHITE BLOOD COUNT (AUTO) 11.8 K/uL (4.5-11.0)
[2017-05-19] MEDS: LEVOTHYROXINE SODIUM 25 MCG TABLET PO SCH (06:26)
[2017-05-19] MEDS: LINACLOTIDE 290 MCG CAPSULE PO SCH (06:50)
[2017-05-19 08:00] VITALS: BP 147/91
[2017-05-19] MEDS: FERROUS SULFATE 325 MG EC TABLET PO SCH ×2 (08:26→17:02)
[2017-05-19] MEDS: TAMSULOSIN HCL 0.4 MG CAPSULE PO SCH ×2 (08:27→21:03)
[2017-05-19] MEDS: CHOLECALCIFEROL (VIT D3) 1,000 UNITS TABLET PO SCH (08:27)
[2017-05-19] MEDS: PANTOPRAZOLE SODIUM 40 MG/VIAL IVP SCH (08:27)
[2017-05-19] MEDS: METOPROLOL SUCCINATE 25 MG ER TABLET PO SCH ×2 (08:27→21:03)
[2017-05-19] MEDS: SIMVASTATIN 10 MG TABLET PO SCH (08:28)
[2017-05-19 09:59] LABS: ABG PCO2 40 mmHg (35-45); ABG PH 7.488 (7.350-7.450); ALLEN TEST, BLOOD GAS Positive; TEMPERATURE, FAHRENHEIT, BG 99.6 FAHREN (96.0-98.6)
[2017-05-19 10:00] LABS: ABG BASE EXCESS 6.5 mmol/L (-2.0-3.0); ABG OXYHEMOGLOBIN 95.6 % (94.0-100.0)
[2017-05-19 10:01] LABS: ABG A-A DIFF O2 109.5 mmHg (10-20.0)
[2017-05-19 10:02] LABS: INSIPIRATORY PRESSURE, BG 20 cm H2O
[2017-05-19 11:34] LABS: ANION GAP 7 mmol/L (8-16); CALCIUM, TOTAL 8.4 mg/dL (8.8-10.5); CARBON DIOXIDE 30 mmol/L (22-29); CHLORIDE 94 mmol/L (98-107); CREATININE 0.45 mg/dL (0.60-1.30); GLOMERULAR FILTR. RATE CALC > 60 mL/min (>60); POTASSIUM 3.2 mmol/L (3.5-5.1); SODIUM SERUM 131 mmol/L (136-145); UREA NITROGEN, BLOOD 6 mg/dL (7-18)
[2017-05-19 12:00] VITALS: BP 141/94
[2017-05-19] MEDS: CefTRIAXone 1 GM/DEXTROSE 50 ML IV SCH (14:28)
[2017-05-19 16:00] VITALS: BP 143/93
[2017-05-19] MEDS ORDERED: SODIUM CHLORIDE 0.9% 250 ML IV ONE (16:58)
[2017-05-19] MEDS: METOCLOPRAMIDE HCL 5 MG/ML 2 ML VIAL IVP SCH (18:07)
[2017-05-19 20:00] VITALS: BP 143/89
[2017-05-19] MEDS: ACETAMINOPHEN 325 MG TABLET PO PRN (21:04)
[2017-05-20] VITALS: BP 143/89
[2017-05-20] MEDS: SODIUM CHLORIDE 0.9% 1,000 ML IV SCH ×4 (00:12→20:30)
[2017-05-20] MEDS: METOCLOPRAMIDE HCL 5 MG/ML 2 ML VIAL IVP SCH ×5 (00:13→23:12)
[2017-05-20] MEDS: POTASSIUM CHL 10 MEQ/WATER 50 ML IV PRN ×2 (00:13→00:59)
[2017-05-20] MEDS: PROPOFOL 1000 MG/ISO-OSM 100 ML IV PRN ×7 (00:57→23:44)
[2017-05-20] MEDS: LORazepam 2 MG/ML VIAL IVP PRN ×3 (02:12→20:19)
[2017-05-20] MEDS: MetroNIDAZOLE 500 MG/NACL 100 ML IV SCH ×3 (02:12→17:35)
[2017-05-20 04:00] VITALS: BP 144/96
[2017-05-20 06:07] LABS: ANION GAP 12 mmol/L (8-16); CALCIUM, TOTAL 8.2 mg/dL (8.8-10.5); CARBON DIOXIDE 29 mmol/L (22-29); CHLORIDE 91 mmol/L (98-107); CREATININE 0.41 mg/dL (0.60-1.30); GLOMERULAR FILTR. RATE CALC > 60 mL/min (>60); POTASSIUM 4.6 mmol/L (3.5-5.1); SODIUM SERUM 132 mmol/L (136-145); UREA NITROGEN, BLOOD 6 mg/dL (7-18)
[2017-05-20] MEDS: LEVOTHYROXINE SODIUM 25 MCG TABLET PO SCH (06:08)
[2017-05-20] MEDS: LINACLOTIDE 290 MCG CAPSULE PO SCH (06:09)
[2017-05-20 06:47] LABS: BASOPHILS # (AUTO) 0.03 K/uL (0.00-0.20); BASOPHILS % (AUTO) 0.3 % (0.0-2.0); EOSINOPHILS # (AUTO) 0.03 K/uL (0.00-0.70); EOSINOPHILS % (AUTO) 0.23 % (1.0-6.0); HEMOGLOBIN 10.8 g/dL (13.5-17.5); LYMPHOCYTES # (AUTO) 0.9 K/uL (1.0-4.8); LYMPHOCYTES % (AUTO) 6.8 % (22.0-44.0); MEAN CORPUSCULAR HEMOGLOBIN 30.9 pg (26.0-34.0); MEAN CORPUSCULAR HGB CONC 34.7 G/dL (31.0-37.0); MEAN CORPUSCULAR VOLUME 89 fL (80-100); MONOCYTES # (AUTO) 1.5 K/uL (0.1-1.0); MONOCYTES % (AUTO) 11.6 % (2.0-9.0); NEUTROPHILS # (AUTO) 10.3 K/uL (1.8-7.7); NEUTROPHILS % (AUTO) 81.2 % (40.0-70.0); PLATELET COUNT (AUTO) 442 K/uL (150-450); RED BLOOD CELL COUNT(AUTO) 3.48 MIL/uL (4.50-5.90); RED CELL DISTRIBUTION WIDTH 13.3 % (11.5-14.5); WHITE BLOOD COUNT (AUTO) 12.6 K/uL (4.5-11.0)
[2017-05-20 08:00] VITALS: BP 132/67
[2017-05-20] MEDS: FERROUS SULFATE 325 MG EC TABLET PO SCH ×2 (08:15→17:34)
[2017-05-20] MEDS: SIMVASTATIN 10 MG TABLET PO SCH (08:16)
[2017-05-20] MEDS: TAMSULOSIN HCL 0.4 MG CAPSULE PO SCH ×2 (08:16→20:24)
[2017-05-20] MEDS: METOPROLOL SUCCINATE 25 MG ER TABLET PO SCH ×2 (08:16→20:24)
[2017-05-20] MEDS: CHOLECALCIFEROL (VIT D3) 1,000 UNITS TABLET PO SCH (08:16)
[2017-05-20] MEDS: PANTOPRAZOLE SODIUM 40 MG/VIAL IVP SCH (08:17)
[2017-05-20 09:51] LABS: ALLEN TEST, BLOOD GAS Positive; TEMPERATURE, FAHRENHEIT, BG 95.4 FAHREN (96.0-98.6)
[2017-05-20 09:52] LABS: ABG BASE EXCESS 7.2 mmol/L (-2.0-3.0); ABG HCO3 30.4 mmol/L (22.0-26.0); ABG OXYHEMOGLOBIN 95.6 % (94.0-100.0); ABG PCO2 44 mmHg (35-45); ABG PH 7.467 (7.350-7.450)
[2017-05-20 09:53] LABS: INSIPIRATORY PRESSURE, BG 20 cm H2O
[2017-05-20 12:00] VITALS: BP 151/76
[2017-05-20] MEDS: CefTRIAXone 1 GM/DEXTROSE 50 ML IV SCH (14:23)
[2017-05-20] MEDS ORDERED: SODIUM CHLORIDE 0.9% 250 ML IV ONE (15:21)
[2017-05-20 16:00] VITALS: BP 150/98
[2017-05-20 18:26] LABS: ABG A-A DIFF O2 115.9 mmHg (10-20.0)
[2017-05-20 20:00] VITALS: BP 140/84
[2017-05-20] MEDS: ACETAMINOPHEN 325 MG TABLET PO PRN (22:26)
[2017-05-21] VITALS: BP 151/78
[2017-05-21] MEDS: MetroNIDAZOLE 500 MG/NACL 100 ML IV SCH ×3 (00:29→17:21)
[2017-05-21] MEDS: LORazepam 2 MG/ML VIAL IVP PRN ×4 (00:29→17:23)
[2017-05-21] MEDS: PROPOFOL 1000 MG/ISO-OSM 100 ML IV PRN ×5 (02:07→14:55)
[2017-05-21 04:00] VITALS: BP 127/68
[2017-05-21] MEDS: SODIUM CHLORIDE 0.9% 1,000 ML IV SCH ×2 (04:50→15:29)
[2017-05-21] MEDS: METOCLOPRAMIDE HCL 5 MG/ML 2 ML VIAL IVP SCH ×3 (05:32→17:21)
[2017-05-21 05:42] LABS: BASOPHILS # (AUTO) 0.02 K/uL (0.00-0.20); BASOPHILS % (AUTO) 0.2 % (0.0-2.0); EOSINOPHILS # (AUTO) 0.05 K/uL (0.00-0.70); HEMATOCRIT 31.4 % (41-53); HEMOGLOBIN 10.7 g/dL (13.5-17.5); LYMPHOCYTES # (AUTO) 1.1 K/uL (1.0-4.8); LYMPHOCYTES % (AUTO) 10.1 % (22.0-44.0); MEAN CORPUSCULAR HEMOGLOBIN 30.7 pg (26.0-34.0); MEAN CORPUSCULAR VOLUME 90 fL (80-100); MONOCYTES # (AUTO) 1.2 K/uL (0.1-1.0); MONOCYTES % (AUTO) 11.4 % (2.0-9.0); NEUTROPHILS # (AUTO) 8.2 K/uL (1.8-7.7); NEUTROPHILS % (AUTO) 77.9 % (40.0-70.0); PLATELET COUNT (AUTO) 520 K/uL (150-450); RED BLOOD CELL COUNT(AUTO) 3.48 MIL/uL (4.50-5.90); RED CELL DISTRIBUTION WIDTH 13.4 % (11.5-14.5); WHITE BLOOD COUNT (AUTO) 10.5 K/uL (4.5-11.0)
[2017-05-21 05:49] LABS: ANION GAP 6 mmol/L (8-16); CALCIUM, TOTAL 8.2 mg/dL (8.8-10.5); CARBON DIOXIDE 34 mmol/L (22-29); CHLORIDE 94 mmol/L (98-107); CREATININE 0.43 mg/dL (0.60-1.30); GLOMERULAR FILTR. RATE CALC > 60 mL/min (>60); POTASSIUM 3.3 mmol/L (3.5-5.1); SODIUM SERUM 134 mmol/L (136-145); UREA NITROGEN, BLOOD 6 mg/dL (7-18)
[2017-05-21] MEDS: LEVOTHYROXINE SODIUM 25 MCG TABLET PO SCH (06:01)
[2017-05-21] MEDS: LINACLOTIDE 290 MCG CAPSULE PO SCH (06:01)
[2017-05-21] MEDS: POTASSIUM CHL 10 MEQ/WATER 50 ML IV PRN ×3 (06:26→10:16)
[2017-05-21 08:00] VITALS: BP 124/71
[2017-05-21] MEDS: SIMVASTATIN 10 MG TABLET PO SCH (08:12)
[2017-05-21] MEDS: METOPROLOL TARTRATE 50 MG TABLET PO SCH ×2 (08:12→20:50)
[2017-05-21] MEDS: PANTOPRAZOLE SODIUM 40 MG/VIAL IVP SCH (08:12)
[2017-05-21] MEDS: CHOLECALCIFEROL (VIT D3) 1,000 UNITS TABLET PO SCH (08:12)
[2017-05-21] MEDS: TAMSULOSIN HCL 0.4 MG CAPSULE PO SCH ×2 (08:13→20:50)
[2017-05-21] MEDS: FERROUS SULFATE 325 MG EC TABLET PO SCH ×2 (08:13→17:20)
[2017-05-21] MEDS: ACETAMINOPHEN 325 MG TABLET PO PRN ×2 (08:15→21:41)
[2017-05-21 12:00] VITALS: BP 111/61
[2017-05-21] MEDS ORDERED: POTASSIUM CHLORIDE 20 MEQ ER TABLET PO ONE (13:15)
[2017-05-21] MEDS ORDERED: POTASSIUM CHLORIDE 10% 40 MEQ/30 ML LIQUID UDCUP NG ONE (14:00)
[2017-05-21] MEDS: CefTRIAXone 1 GM/DEXTROSE 50 ML IV SCH (14:30)
[2017-05-21] MEDS ORDERED: SODIUM CHLORIDE 0.9% 250 ML IV ONE (14:43)
[2017-05-21 16:00] VITALS: BP 131/74
[2017-05-21 20:00] VITALS: BP 109/62
[2017-05-21] MEDS ORDERED: VANCOMYCIN HCL 1.5 GM in DEXTROSE 5%-WATER 250 ML IV ONE (22:00)
[2017-05-22] VITALS: BP 126/61
[2017-05-22] MEDS: METOCLOPRAMIDE HCL 5 MG/ML 2 ML VIAL IVP SCH ×4 (00:44→18:30)
[2017-05-22] MEDS: SODIUM CHLORIDE 0.9% 1,000 ML IV SCH ×3 (00:45→20:56)
[2017-05-22] MEDS: MetroNIDAZOLE 500 MG/NACL 100 ML IV SCH ×3 (00:45→16:54)
[2017-05-22] MEDS: LORazepam 2 MG/ML VIAL IVP PRN ×4 (00:48→14:15)
[2017-05-22] MEDS: PROPOFOL 1000 MG/ISO-OSM 100 ML IV PRN ×5 (02:16→20:00)
[2017-05-22] MEDS ORDERED: SODIUM CHLORIDE 0.9% 250 ML IV ONE ×3 (03:47→20:53)
[2017-05-22 04:00] VITALS: BP 141/73
[2017-05-22 04:39] LABS: BASOPHILS % (AUTO) 0.6 % (0.0-2.0); EOSINOPHILS % (AUTO) 0.6 % (1.0-6.0); HEMATOCRIT 28.2 % (41-53); HEMOGLOBIN 9.7 g/dL (13.5-17.5); LYMPHOCYTES # (AUTO) 1.4 K/uL (1.0-4.8); LYMPHOCYTES % (AUTO) 11.1 % (22.0-44.0); MEAN CORPUSCULAR HEMOGLOBIN 30.3 pg (26.0-34.0); MEAN CORPUSCULAR HGB CONC 34.3 G/dL (31.0-37.0); MEAN CORPUSCULAR VOLUME 89 fL (80-100); MONOCYTES # (AUTO) 1.2 K/uL (0.1-1.0); MONOCYTES % (AUTO) 9.8 % (2.0-9.0); NEUTROPHILS # (AUTO) 9.9 K/uL (1.8-7.7); NEUTROPHILS % (AUTO) 77.9 % (40.0-70.0); PLATELET COUNT (AUTO) 602 K/uL (150-450); RED BLOOD CELL COUNT(AUTO) 3.18 MIL/uL (4.50-5.90); RED CELL DISTRIBUTION WIDTH 13.9 % (11.5-14.5); WHITE BLOOD COUNT (AUTO) 12.7 K/uL (4.5-11.0)
[2017-05-22 04:53] LABS: ANION GAP 4 mmol/L (8-16); CALCIUM, TOTAL 7.9 mg/dL (8.8-10.5); CARBON DIOXIDE 32 mmol/L (22-29); CHLORIDE 98 mmol/L (98-107); CREATININE 0.52 mg/dL (0.60-1.30); GLOMERULAR FILTR. RATE CALC > 60 mL/min (>60); PHOSPHORUS 3.3 mg/dL (2.5-4.9); POTASSIUM 3.5 mmol/L (3.5-5.1); SODIUM SERUM 134 mmol/L (136-145); UREA NITROGEN, BLOOD 7 mg/dL (7-18)
[2017-05-22 05:08] LABS: APPEARANCE,URINE CLEAR (CLEAR); GLUCOSE, URINE (UA) NEGATIVE (NEGATIVE); KETONES,URINE NEGATIVE (NEGATIVE); LEUKOCYTE ESTERASE ,URINE NEGATIVE (NEGATIVE); OCCULT BLOOD,URINE SMALL (NEGATIVE); PH,URINE 7.5 (5.0-8.0); PROTEIN,URINE NEGATIVE (NEGATIVE)
[2017-05-22] MEDS: POTASSIUM CHL 10 MEQ/WATER 50 ML IV PRN ×3 (05:19→08:30)
[2017-05-22 05:20] LABS: SQUAMOUS EPITHELIAL CELL,UR Rare /LPF (None Seen); WBC,URINE 0-2 /HPF (0-5)
[2017-05-22] MEDS: LINACLOTIDE 290 MCG CAPSULE PO SCH (05:30)
[2017-05-22] MEDS: LEVOTHYROXINE SODIUM 25 MCG TABLET PO SCH (06:37)
[2017-05-22 08:00] VITALS: BP 116/73
[2017-05-22] MEDS: PANTOPRAZOLE SODIUM 40 MG/VIAL IVP SCH (08:19)
[2017-05-22] MEDS: TAMSULOSIN HCL 0.4 MG CAPSULE PO SCH ×2 (08:19→20:59)
[2017-05-22] MEDS: VANCOMYCIN HCL 1.5 GM in DEXTROSE 5%-WATER 250 ML IV SCH ×2 (08:19→20:02)
[2017-05-22] MEDS: METOPROLOL TARTRATE 50 MG TABLET PO SCH ×2 (08:20→20:59)
[2017-05-22] MEDS: SIMVASTATIN 10 MG TABLET PO SCH (08:20)
[2017-05-22] MEDS: CHOLECALCIFEROL (VIT D3) 1,000 UNITS TABLET PO SCH (08:21)
[2017-05-22] MEDS: FERROUS SULFATE 325 MG EC TABLET PO SCH ×2 (08:21→18:30)
[2017-05-22] MEDS ORDERED: MAGNESIUM SULFATE 1 GM in DEXTROSE 5%-WATER 50 ML IV ONE (09:15)
[2017-05-22] MEDS ORDERED: POTASSIUM CHLORIDE 10 MEQ ER TABLET PO PRN (09:21)
[2017-05-22 12:00] VITALS: BP 120/71
[2017-05-22] MEDS: CefTRIAXone 1 GM/DEXTROSE 50 ML IV SCH (14:17)
[2017-05-22 16:00] VITALS: BP 136/70
[2017-05-22 18:04] LABS: GLUCOSE,POINT OF CARE 113 MG/DL (70-110)
[2017-05-22 20:00] VITALS: BP 100/55
[2017-05-22] MEDS ORDERED: CASPOFUNGIN ACETATE 70 MG in SODIUM CHLORIDE 0.9% 250 ML IV ONE (22:00)
[2017-05-23] VITALS: BP 107/55
[2017-05-23] MEDS: METOCLOPRAMIDE HCL 5 MG/ML 2 ML VIAL IVP SCH ×5 (00:37→23:49)
[2017-05-23] MEDS: MetroNIDAZOLE 500 MG/NACL 100 ML IV SCH ×3 (00:38→17:27)
[2017-05-23] MEDS: LORazepam 2 MG/ML VIAL IVP PRN ×3 (00:56→23:49)
[2017-05-23] MEDS: PROPOFOL 1000 MG/ISO-OSM 100 ML IV PRN ×5 (03:18→23:09)
[2017-05-23 04:00] VITALS: BP 102/73
[2017-05-23 05:30] LABS: BASOPHILS # (AUTO) 0.04 K/uL (0.00-0.20); BASOPHILS % (AUTO) 0.3 % (0.0-2.0); EOSINOPHILS % (AUTO) 0.65 % (1.0-6.0); HEMATOCRIT 27.8 % (41-53); HEMOGLOBIN 9.6 g/dL (13.5-17.5); LYMPHOCYTES # (AUTO) 1.9 K/uL (1.0-4.8); LYMPHOCYTES % (AUTO) 12.8 % (22.0-44.0); MEAN CORPUSCULAR HEMOGLOBIN 30.5 pg (26.0-34.0); MEAN CORPUSCULAR HGB CONC 34.5 G/dL (31.0-37.0); MEAN CORPUSCULAR VOLUME 88 fL (80-100); MONOCYTES # (AUTO) 1.1 K/uL (0.1-1.0); MONOCYTES % (AUTO) 7.2 % (2.0-9.0); NEUTROPHILS # (AUTO) 11.8 K/uL (1.8-7.7); NEUTROPHILS % (AUTO) 79.1 % (40.0-70.0); PLATELET COUNT (AUTO) 681 K/uL (150-450); RED BLOOD CELL COUNT(AUTO) 3.15 MIL/uL (4.50-5.90); RED CELL DISTRIBUTION WIDTH 14.1 % (11.5-14.5); WHITE BLOOD COUNT (AUTO) 14.9 K/uL (4.5-11.0)
[2017-05-23 05:46] LABS: ANION GAP 3 mmol/L (8-16); CALCIUM, TOTAL 7.9 mg/dL (8.8-10.5); CARBON DIOXIDE 32 mmol/L (22-29); CHLORIDE 98 mmol/L (98-107); GLOMERULAR FILTR. RATE CALC > 60 mL/min (>60); PHOSPHORUS 3.7 mg/dL (2.5-4.9); POTASSIUM 3.7 mmol/L (3.5-5.1); SODIUM SERUM 133 mmol/L (136-145); UREA NITROGEN, BLOOD 10 mg/dL (7-18)
[2017-05-23] MEDS: LINACLOTIDE 290 MCG CAPSULE PO SCH (06:30)
[2017-05-23] MEDS: LEVOTHYROXINE SODIUM 25 MCG TABLET PO SCH (06:45)
[2017-05-23] MEDS: SODIUM CHLORIDE 0.9% 1,000 ML IV SCH ×3 (06:47→17:28)
[2017-05-23 08:00] VITALS: BP 112/59
[2017-05-23] MEDS ORDERED: SODIUM CHLORIDE 0.9% 250 ML IV ONE ×2 (08:10→23:46)
[2017-05-23] MEDS: PANTOPRAZOLE SODIUM 40 MG/VIAL IVP SCH (08:16)
[2017-05-23] MEDS: FERROUS SULFATE 325 MG EC TABLET PO SCH ×2 (08:16→17:27)
[2017-05-23] MEDS: VANCOMYCIN HCL 1.5 GM in DEXTROSE 5%-WATER 250 ML IV SCH (08:16)
[2017-05-23] MEDS: TAMSULOSIN HCL 0.4 MG CAPSULE PO SCH ×2 (08:16→20:28)
[2017-05-23] MEDS: METOPROLOL TARTRATE 50 MG TABLET PO SCH ×2 (08:17→20:28)
[2017-05-23] MEDS: CHOLECALCIFEROL (VIT D3) 1,000 UNITS TABLET PO SCH (08:17)
[2017-05-23] MEDS: SIMVASTATIN 10 MG TABLET PO SCH (08:17)
[2017-05-23 12:00] VITALS: BP 103/57
[2017-05-23] MEDS: CefTRIAXone 1 GM/DEXTROSE 50 ML IV SCH (14:00)
[2017-05-23 16:00] VITALS: BP 96/50
[2017-05-23] MEDS ORDERED: VANCOMYCIN HCL 1.5 GM in DEXTROSE 5%-WATER 250 ML IV SCH (16:00)
[2017-05-23] MEDS: VANCOMYCIN HCL 1.25 GM in DEXTROSE 5%-WATER 250 ML IV SCH ×2 (16:30→23:49)
[2017-05-23 20:00] VITALS: BP 100/54
[2017-05-23] MEDS: ACETAMINOPHEN 325 MG TABLET PO PRN (20:28)
[2017-05-23] MEDS ORDERED: BARIUM SULFATE 0.1% SUSPENSION 450 ML BOTTLE ONE (21:50)
[2017-05-23] MEDS: CASPOFUNGIN ACETATE 50 MG in SODIUM CHLORIDE 0.9% 250 ML IV SCH (22:12)
[2017-05-24] VITALS: BP 114/61
[2017-05-24] MEDS: MetroNIDAZOLE 500 MG/NACL 100 ML IV SCH ×3 (01:38→17:18)
[2017-05-24] MEDS: PROPOFOL 1000 MG/ISO-OSM 100 ML IV PRN ×5 (03:07→21:55)
[2017-05-24 04:00] VITALS: BP 118/62
[2017-05-24] MEDS: ACETAMINOPHEN 325 MG TABLET PO PRN ×2 (05:02→20:16)
[2017-05-24] MEDS: LINACLOTIDE 290 MCG CAPSULE PO SCH (05:35)
[2017-05-24] MEDS: METOCLOPRAMIDE HCL 5 MG/ML 2 ML VIAL IVP SCH ×4 (05:35→23:42)
[2017-05-24] MEDS: LEVOTHYROXINE SODIUM 25 MCG TABLET PO SCH (05:35)
[2017-05-24 06:20] LABS: BASOPHILS % (AUTO) 0.5 % (0.0-2.0); EOSINOPHILS % (AUTO) 0.9 % (1.0-6.0); HEMATOCRIT 25.9 % (41-53); HEMOGLOBIN 8.7 g/dL (13.5-17.5); LYMPHOCYTES # (AUTO) 1.5 K/uL (1.0-4.8); LYMPHOCYTES % (AUTO) 15.4 % (22.0-44.0); MEAN CORPUSCULAR HEMOGLOBIN 30.5 pg (26.0-34.0); MEAN CORPUSCULAR HGB CONC 33.7 G/dL (31.0-37.0); MEAN CORPUSCULAR VOLUME 91 fL (80-100); MONOCYTES # (AUTO) 0.9 K/uL (0.1-1.0); MONOCYTES % (AUTO) 9.5 % (2.0-9.0); NEUTROPHILS # (AUTO) 7.1 K/uL (1.8-7.7); NEUTROPHILS % (AUTO) 73.7 % (40.0-70.0); PLATELET COUNT (AUTO) 745 K/uL (150-450); RED BLOOD CELL COUNT(AUTO) 2.85 MIL/uL (4.50-5.90); RED CELL DISTRIBUTION WIDTH 13.7 % (11.5-14.5); WHITE BLOOD COUNT (AUTO) 9.7 K/uL (4.5-11.0)
[2017-05-24 06:32] LABS: ANION GAP 4 mmol/L (8-16); CARBON DIOXIDE 33 mmol/L (22-29); CHLORIDE 100 mmol/L (98-107); CREATININE 0.48 mg/dL (0.60-1.30); GLOMERULAR FILTR. RATE CALC > 60 mL/min (>60); POTASSIUM 3.3 mmol/L (3.5-5.1); SODIUM SERUM 137 mmol/L (136-145); UREA NITROGEN, BLOOD 6 mg/dL (7-18)
[2017-05-24 07:33] LABS: PROCALCITONIN (PCT) 0.18 ng/mL (<0.50)
[2017-05-24 08:00] VITALS: BP 104/55
[2017-05-24] MEDS: POTASSIUM CHL 10 MEQ/WATER 50 ML IV PRN ×3 (08:26→12:00)
[2017-05-24] MEDS: VANCOMYCIN HCL 1.25 GM in DEXTROSE 5%-WATER 250 ML IV SCH ×3 (08:29→23:42)
[2017-05-24] MEDS: LORazepam 2 MG/ML VIAL IVP PRN ×4 (08:30→21:55)
[2017-05-24] MEDS: PANTOPRAZOLE SODIUM 40 MG/VIAL IVP SCH (08:30)
[2017-05-24] MEDS: METOPROLOL TARTRATE 50 MG TABLET PO SCH ×2 (08:31→20:15)
[2017-05-24] MEDS: SIMVASTATIN 10 MG TABLET PO SCH (08:31)
[2017-05-24] MEDS: TAMSULOSIN HCL 0.4 MG CAPSULE PO SCH ×2 (08:31→20:15)
[2017-05-24] MEDS: FERROUS SULFATE 325 MG EC TABLET PO SCH ×2 (08:31→17:18)
[2017-05-24] MEDS: CHOLECALCIFEROL (VIT D3) 1,000 UNITS TABLET PO SCH (09:12)
[2017-05-24 12:00] VITALS: BP 110/62
[2017-05-24] MEDS: SODIUM CHLORIDE 0.9% 1,000 ML IV SCH ×2 (14:05→23:42)
[2017-05-24] MEDS: CefTRIAXone 1 GM/DEXTROSE 50 ML IV SCH (14:06)
[2017-05-24 16:00] VITALS: BP 118/73
[2017-05-24] MEDS ORDERED: SODIUM CHLORIDE 0.9% 250 ML IV ONE ×2 (17:15→19:42)
[2017-05-24] MEDS: QUEtiapine FUMARATE 25 MG TABLET PO SCH (17:17)
[2017-05-24 20:00] VITALS: BP 101/66
[2017-05-24] MEDS: CASPOFUNGIN ACETATE 50 MG in SODIUM CHLORIDE 0.9% 250 ML IV SCH (21:54)
[2017-05-25] VITALS: BP 114/61
[2017-05-25] MEDS: MetroNIDAZOLE 500 MG/NACL 100 ML IV SCH ×2 (01:21→08:25)
[2017-05-25] MEDS: PROPOFOL 1000 MG/ISO-OSM 100 ML IV PRN ×5 (01:22→13:58)
[2017-05-25] MEDS: ACETAMINOPHEN 325 MG TABLET PO PRN (01:29)
[2017-05-25] MEDS: LORazepam 2 MG/ML VIAL IVP PRN ×3 (03:39→14:29)
[2017-05-25 04:00] VITALS: BP 132/67
[2017-05-25 05:46] LABS: ANION GAP 4 mmol/L (8-16); CALCIUM, TOTAL 8.1 mg/dL (8.8-10.5); CARBON DIOXIDE 32 mmol/L (22-29); CHLORIDE 103 mmol/L (98-107); CREATININE 0.49 mg/dL (0.60-1.30); GLOMERULAR FILTR. RATE CALC > 60 mL/min (>60); POTASSIUM 3.3 mmol/L (3.5-5.1); SODIUM SERUM 139 mmol/L (136-145); UREA NITROGEN, BLOOD 5 mg/dL (7-18)
[2017-05-25] MEDS: METOCLOPRAMIDE HCL 5 MG/ML 2 ML VIAL IVP SCH ×4 (05:50→23:49)
[2017-05-25] MEDS: LINACLOTIDE 290 MCG CAPSULE PO SCH (05:51)
[2017-05-25] MEDS: LEVOTHYROXINE SODIUM 25 MCG TABLET PO SCH (05:51)
[2017-05-25 06:20] LABS: BASOPHILS % (AUTO) 0.7 % (0.0-2.0); EOSINOPHILS % (AUTO) 1.2 % (1.0-6.0); HEMATOCRIT 25.1 % (41-53); HEMOGLOBIN 8.5 g/dL (13.5-17.5); LYMPHOCYTES # (AUTO) 1.6 K/uL (1.0-4.8); LYMPHOCYTES % (AUTO) 19.5 % (22.0-44.0); MEAN CORPUSCULAR HEMOGLOBIN 30.8 pg (26.0-34.0); MEAN CORPUSCULAR VOLUME 91 fL (80-100); MONOCYTES # (AUTO) 0.8 K/uL (0.1-1.0); MONOCYTES % (AUTO) 9.4 % (2.0-9.0); NEUTROPHILS # (AUTO) 5.5 K/uL (1.8-7.7); NEUTROPHILS % (AUTO) 69.2 % (40.0-70.0); RED BLOOD CELL COUNT(AUTO) 2.77 MIL/uL (4.50-5.90); RED CELL DISTRIBUTION WIDTH 13.7 % (11.5-14.5)
[2017-05-25] MEDS: POTASSIUM CHLORIDE 20 MEQ ER TABLET PO PRN (06:54)
[2017-05-25 07:28] LABS: PLATELET COUNT (AUTO) 872 K/uL (150-450)
[2017-05-25 08:00] VITALS: BP 118/68
[2017-05-25] MEDS ORDERED: VANCOMYCIN HCL IV SCH (08:00)
[2017-05-25] MEDS ORDERED: DEXTROSE 5% IV SCH (08:00)
[2017-05-25] MEDS ORDERED: WATER IV SCH (08:00)
[2017-05-25] MEDS: SIMVASTATIN 10 MG TABLET PO SCH (08:21)
[2017-05-25] MEDS: CHOLECALCIFEROL (VIT D3) 1,000 UNITS TABLET PO SCH (08:21)
[2017-05-25] MEDS: QUEtiapine FUMARATE 25 MG TABLET PO SCH (08:22)
[2017-05-25] MEDS: FERROUS SULFATE 325 MG EC TABLET PO SCH ×2 (08:22→17:05)
[2017-05-25] MEDS: TAMSULOSIN HCL 0.4 MG CAPSULE PO SCH ×2 (08:22→21:00)
[2017-05-25] MEDS: METOPROLOL TARTRATE 50 MG TABLET PO SCH ×2 (08:22→21:00)
[2017-05-25] MEDS: PANTOPRAZOLE SODIUM 40 MG/VIAL IVP SCH (08:23)
[2017-05-25] MEDS: SODIUM CHLORIDE 0.9% 1,000 ML IV SCH ×2 (08:26→20:11)
[2017-05-25 11:10] LABS: INR 1.3 (0.9-1.1); PROTHROMBIN TIME 13.5 SEC (9.4-11.6)
[2017-05-25 12:00] VITALS: BP 119/69
[2017-05-25] MEDS: CefoTEtan DISOD 2 GM/DEXTROSE 50 ML IV SCH ×2 (12:14→23:48)
[2017-05-25 16:00] VITALS: BP 115/68
[2017-05-25] MEDS ORDERED: SODIUM CHLORIDE 0.9% 250 ML IV ONE (16:16)
[2017-05-25 20:00] VITALS: BP 93/46
[2017-05-25 21:46] LABS: COLOR,BODY FLUID YELLOW (LT YELLOW)
[2017-05-25 21:47] LABS: APPEARANCE,UNSPUN,BODY FLUID HAZY (CLEAR)
[2017-05-26] VITALS: BP 111/80
[2017-05-26] MEDS: LORazepam 2 MG/ML VIAL IVP PRN ×3 (01:17→21:03)
[2017-05-26 04:00] VITALS: BP 127/78
[2017-05-26] MEDS: LEVOTHYROXINE SODIUM 25 MCG TABLET PO SCH (05:35)
[2017-05-26] MEDS: LINACLOTIDE 290 MCG CAPSULE PO SCH (05:35)
[2017-05-26] MEDS: METOCLOPRAMIDE HCL 5 MG/ML 2 ML VIAL IVP SCH ×4 (05:36→23:41)
[2017-05-26 06:00] LABS: ANION GAP 7 mmol/L (8-16); CALCIUM, TOTAL 8.3 mg/dL (8.8-10.5); CARBON DIOXIDE 31 mmol/L (22-29); CHLORIDE 97 mmol/L (98-107); CREATININE 0.57 mg/dL (0.60-1.30); GLOMERULAR FILTR. RATE CALC > 60 mL/min (>60); POTASSIUM 3.7 mmol/L (3.5-5.1); SODIUM SERUM 135 mmol/L (136-145); UREA NITROGEN, BLOOD 6 mg/dL (7-18)
[2017-05-26 08:00] VITALS: BP 116/58
[2017-05-26] MEDS: POTASSIUM CHL 10 MEQ/WATER 50 ML IV PRN ×2 (08:09→09:00)
[2017-05-26] MEDS: PROPOFOL 1000 MG/ISO-OSM 100 ML IV PRN ×2 (08:09→13:03)
[2017-05-26] MEDS: METOPROLOL TARTRATE 50 MG TABLET PO SCH ×2 (08:10→20:00)
[2017-05-26] MEDS: TAMSULOSIN HCL 0.4 MG CAPSULE PO SCH ×2 (08:10→21:00)
[2017-05-26] MEDS: CHOLECALCIFEROL (VIT D3) 1,000 UNITS TABLET PO SCH (08:10)
[2017-05-26] MEDS: SIMVASTATIN 10 MG TABLET PO SCH (08:11)
[2017-05-26] MEDS: FERROUS SULFATE 325 MG EC TABLET PO SCH (08:11)
[2017-05-26] MEDS: PANTOPRAZOLE SODIUM 40 MG/VIAL IVP SCH (09:00)
[2017-05-26 09:33] LABS: ABG A-A DIFF O2 120.3 mmHg (10-20.0); ABG BASE EXCESS 4.6 mmol/L (-2.0-3.0); ABG HCO3 28.4 mmol/L (22.0-26.0); ABG OXYHEMOGLOBIN 97.6 % (94.0-100.0); ABG PCO2 41 mmHg (35-45); TEMPERATURE, FAHRENHEIT, BG 100.5 FAHREN (96.0-98.6)
[2017-05-26 09:34] LABS: ALLEN TEST, BLOOD GAS Positive
[2017-05-26 12:00] VITALS: BP 120/63
[2017-05-26] MEDS: CefoTEtan DISOD 2 GM/DEXTROSE 50 ML IV SCH ×2 (12:20→23:41)
[2017-05-26] MEDS: SODIUM CHLORIDE 0.9% 1,000 ML IV SCH (14:34)
[2017-05-26] MEDS ORDERED: SODIUM CHLORIDE 0.9% 250 ML IV ONE (14:40)
[2017-05-26 16:00] VITALS: BP 118/73
[2017-05-26] MEDS ORDERED: IPRATROPIUM BROMIDE 0.5 MG/2.5 ML NEB SOLUTION NEB ONE (18:03)
[2017-05-26] MEDS ORDERED: ALBUTEROL SULFATE 2.5 MG/0.5 ML NEB SOLUTION NEB ONE (18:04)
[2017-05-26] MEDS ORDERED: ALBUTEROL SULFATE 2.5 MG/0.5 ML NEB SOLUTION NEB PRN (18:15)
[2017-05-26] MEDS ORDERED: IPRATROPIUM BROMIDE 0.5 MG/2.5 ML NEB SOLUTION NEB PRN (18:15)
[2017-05-26 18:52] LABS: ABG A-A DIFF O2 108.9 mmHg (10-20.0); ABG BASE EXCESS 7.8 mmol/L (-2.0-3.0); ABG HCO3 30.8 mmol/L (22.0-26.0); ABG PCO2 45 mmHg (35-45); ABG PH 7.467 (7.350-7.450); ALLEN TEST, BLOOD GAS POSITIVE
[2017-05-26 20:00] VITALS: BP 107/53
[2017-05-26] MEDS ORDERED: PALIPERIDONE PALMITATE 234 MG/1.5 ML SYRINGE IM SCH (21:00)
[2017-05-26] MEDS: ACETAMINOPHEN 325 MG TABLET PO PRN (21:04)
[2017-05-27] VITALS (7 sets, daily range): BP systolic 108–137; BP diastolic 66–75
[2017-05-27] MEDS: LORazepam 2 MG/ML VIAL IVP PRN ×2 (05:48→14:37)
[2017-05-27] MEDS: LEVOTHYROXINE SODIUM 25 MCG TABLET PO SCH (05:48)
[2017-05-27] MEDS: METOCLOPRAMIDE HCL 5 MG/ML 2 ML VIAL IVP SCH ×3 (05:48→17:41)
[2017-05-27] MEDS: LINACLOTIDE 290 MCG CAPSULE PO SCH (05:58)
[2017-05-27 08:28] LABS: BASOPHILS # (AUTO) 0.03 K/uL (0.00-0.20); BASOPHILS % (AUTO) 0.3 % (0.0-2.0); EOSINOPHILS # (AUTO) 0.05 K/uL (0.00-0.70); EOSINOPHILS % (AUTO) 0.42 % (1.0-6.0); HEMATOCRIT 28.6 % (41-53); HEMOGLOBIN 9.6 g/dL (13.5-17.5); LYMPHOCYTES # (AUTO) 1.5 K/uL (1.0-4.8); LYMPHOCYTES % (AUTO) 12.1 % (22.0-44.0); MEAN CORPUSCULAR HEMOGLOBIN 30.2 pg (26.0-34.0); MEAN CORPUSCULAR HGB CONC 33.6 G/dL (31.0-37.0); MEAN CORPUSCULAR VOLUME 90 fL (80-100); MONOCYTES # (AUTO) 0.9 K/uL (0.1-1.0); MONOCYTES % (AUTO) 7.5 % (2.0-9.0); NEUTROPHILS # (AUTO) 9.8 K/uL (1.8-7.7); NEUTROPHILS % (AUTO) 79.7 % (40.0-70.0); RED BLOOD CELL COUNT(AUTO) 3.18 MIL/uL (4.50-5.90); WHITE BLOOD COUNT (AUTO) 12.3 K/uL (4.5-11.0)
[2017-05-27 08:35] LABS: PLATELET COUNT (AUTO) 1257 K/uL (150-450)
[2017-05-27 08:36] LABS: ANION GAP 9 mmol/L (8-16); CALCIUM, TOTAL 8.5 mg/dL (8.8-10.5); CARBON DIOXIDE 30 mmol/L (22-29); CHLORIDE 96 mmol/L (98-107); CREATININE 0.55 mg/dL (0.60-1.30); GLOMERULAR FILTR. RATE CALC > 60 mL/min (>60); POTASSIUM 3.6 mmol/L (3.5-5.1); SODIUM SERUM 135 mmol/L (136-145); UREA NITROGEN, BLOOD 7 mg/dL (7-18)
[2017-05-27 08:41] LABS: ALANINE AMINOTRANSFERASE 29 U/L (12-78); ALBUMIN 2.1 g/dL (3.4-5.0); ASPARTATE AMINOTRANSFERASE 23 U/L (15-37); BILIRUBIN,TOTAL 0.4 mg/dL (0.1-1.0); TOTAL PROTEIN, SERUM 6.8 g/dL (6.4-8.2)
[2017-05-27 09:12] LABS: RBC MORPHOLOGY COMMENT NORMAL RBC MORPH
[2017-05-27] MEDS: CHOLECALCIFEROL (VIT D3) 1,000 UNITS TABLET PO SCH (09:13)
[2017-05-27] MEDS: METOPROLOL TARTRATE 50 MG TABLET PO SCH ×2 (09:14→20:51)
[2017-05-27] MEDS: TAMSULOSIN HCL 0.4 MG CAPSULE PO SCH ×2 (09:14→20:51)
[2017-05-27] MEDS: ACETAMINOPHEN 325 MG TABLET PO PRN (09:14)
[2017-05-27] MEDS: SIMVASTATIN 10 MG TABLET PO SCH (09:19)
[2017-05-27] MEDS: PANTOPRAZOLE SODIUM 40 MG/VIAL IVP SCH (09:21)
[2017-05-27] MEDS: SODIUM CHLORIDE 0.9% 1,000 ML IV SCH (11:36)
[2017-05-27] MEDS: CefoTEtan DISOD 2 GM/DEXTROSE 50 ML IV SCH (11:37)
[2017-05-27] MEDS: LevETIRAcetam 500 MG TABLET PO SCH (20:51)
[2017-05-27] MEDS: ZOLPIDEM TARTRATE 5 MG TABLET PO PRN (20:51)
[2017-05-27] MEDS: POTASSIUM CHLORIDE 20 MEQ ER TABLET PO PRN (20:52)
[2017-05-28] MEDS: METOCLOPRAMIDE HCL 5 MG/ML 2 ML VIAL IVP SCH ×4 (00:30→17:56)
[2017-05-28] MEDS: ACETAMINOPHEN 325 MG TABLET PO PRN ×2 (00:30→20:17)
[2017-05-28] MEDS: LORazepam 2 MG/ML VIAL IVP PRN ×3 (00:30→13:03)
[2017-05-28] MEDS: CefoTEtan DISOD 2 GM/DEXTROSE 50 ML IV SCH ×2 (00:38→11:24)
[2017-05-28 04:39] VITALS: BP 130/57
[2017-05-28] MEDS: LEVOTHYROXINE SODIUM 25 MCG TABLET PO SCH (05:47)
[2017-05-28] MEDS: LINACLOTIDE 290 MCG CAPSULE PO SCH (05:48)
[2017-05-28 06:57] LABS: BASOPHILS % (AUTO) 0.5 % (0.0-2.0); EOSINOPHILS % (AUTO) 0.3 % (1.0-6.0); HEMATOCRIT 31.3 % (41-53); HEMOGLOBIN 10.5 g/dL (13.5-17.5); LYMPHOCYTES # (AUTO) 1.9 K/uL (1.0-4.8); LYMPHOCYTES % (AUTO) 14.6 % (22.0-44.0); MEAN CORPUSCULAR HEMOGLOBIN 30.4 pg (26.0-34.0); MEAN CORPUSCULAR HGB CONC 33.4 G/dL (31.0-37.0); MEAN CORPUSCULAR VOLUME 91 fL (80-100); MONOCYTES # (AUTO) 1.2 K/uL (0.1-1.0); MONOCYTES % (AUTO) 9.1 % (2.0-9.0); NEUTROPHILS # (AUTO) 10.1 K/uL (1.8-7.7); NEUTROPHILS % (AUTO) 75.5 % (40.0-70.0); RED BLOOD CELL COUNT(AUTO) 3.44 MIL/uL (4.50-5.90); RED CELL DISTRIBUTION WIDTH 13.6 % (11.5-14.5); WHITE BLOOD COUNT (AUTO) 13.4 K/uL (4.5-11.0)
[2017-05-28 07:24] VITALS: BP 116/85
[2017-05-28 07:31] LABS: ALANINE AMINOTRANSFERASE 34 U/L (12-78); ALBUMIN 2.2 g/dL (3.4-5.0); ANION GAP 9 mmol/L (8-16); ASPARTATE AMINOTRANSFERASE 29 U/L (15-37); BILIRUBIN,TOTAL 0.3 mg/dL (0.1-1.0); CALCIUM, TOTAL 8.6 mg/dL (8.8-10.5); CARBON DIOXIDE 29 mmol/L (22-29); CHLORIDE 96 mmol/L (98-107); CREATININE 0.71 mg/dL (0.60-1.30); GLOMERULAR FILTR. RATE CALC > 60 mL/min (>60); POTASSIUM 3.7 mmol/L (3.5-5.1); SODIUM SERUM 134 mmol/L (136-145); TOTAL PROTEIN, SERUM 7.1 g/dL (6.4-8.2); UREA NITROGEN, BLOOD 9 mg/dL (7-18)
[2017-05-28 07:59] LABS: PLATELET COUNT (AUTO) 1442 K/uL (150-450)
[2017-05-28] MEDS: TAMSULOSIN HCL 0.4 MG CAPSULE PO SCH ×2 (08:16→20:16)
[2017-05-28] MEDS: CHOLECALCIFEROL (VIT D3) 1,000 UNITS TABLET PO SCH (08:16)
[2017-05-28] MEDS: LevETIRAcetam 500 MG TABLET PO SCH ×2 (08:16→20:16)
[2017-05-28] MEDS: METOPROLOL TARTRATE 50 MG TABLET PO SCH ×2 (08:16→20:16)
[2017-05-28] MEDS: SIMVASTATIN 10 MG TABLET PO SCH (08:16)
[2017-05-28] MEDS: PANTOPRAZOLE SODIUM 40 MG/VIAL IVP SCH (08:17)
[2017-05-28 11:18] VITALS: BP 109/68
[2017-05-28 15:28] VITALS: BP 111/70
[2017-05-28 19:20] VITALS: BP 115/60
[2017-05-28] MEDS: POTASSIUM CHLORIDE 20 MEQ ER TABLET PO PRN (20:17)
[2017-05-28] MEDS: ZOLPIDEM TARTRATE 5 MG TABLET PO PRN (21:44)
[2017-05-29] VITALS (7 sets, daily range): BP systolic 109–135; BP diastolic 49–70
[2017-05-29] MEDS: METOCLOPRAMIDE HCL 5 MG/ML 2 ML VIAL IVP SCH ×4 (00:15→17:56)
[2017-05-29] MEDS: CefoTEtan DISOD 2 GM/DEXTROSE 50 ML IV SCH ×2 (00:16→12:03)
[2017-05-29] MEDS: LORazepam 2 MG/ML VIAL IVP PRN ×3 (02:50→19:43)
[2017-05-29] MEDS: LINACLOTIDE 290 MCG CAPSULE PO SCH (05:39)
[2017-05-29] MEDS: LEVOTHYROXINE SODIUM 25 MCG TABLET PO SCH (05:39)
[2017-05-29 06:16] LABS: BASOPHILS % (AUTO) 0.6 % (0.0-2.0); EOSINOPHILS % (AUTO) 1.6 % (1.0-6.0); HEMATOCRIT 30.3 % (41-53); HEMOGLOBIN 10.2 g/dL (13.5-17.5); LYMPHOCYTES % (AUTO) 17.4 % (22.0-44.0); MEAN CORPUSCULAR HEMOGLOBIN 30.6 pg (26.0-34.0); MEAN CORPUSCULAR HGB CONC 33.6 G/dL (31.0-37.0); MEAN CORPUSCULAR VOLUME 91 fL (80-100); MONOCYTES # (AUTO) 1.1 K/uL (0.1-1.0); MONOCYTES % (AUTO) 9.8 % (2.0-9.0); NEUTROPHILS # (AUTO) 8.2 K/uL (1.8-7.7); NEUTROPHILS % (AUTO) 70.6 % (40.0-70.0); RED BLOOD CELL COUNT(AUTO) 3.32 MIL/uL (4.50-5.90); RED CELL DISTRIBUTION WIDTH 13.9 % (11.5-14.5); WHITE BLOOD COUNT (AUTO) 11.6 K/uL (4.5-11.0)
[2017-05-29 06:26] LABS: ALANINE AMINOTRANSFERASE 42 U/L (12-78); ALBUMIN 2.1 g/dL (3.4-5.0); ANION GAP 7 mmol/L (8-16); ASPARTATE AMINOTRANSFERASE 36 U/L (15-37); BILIRUBIN,TOTAL 0.3 mg/dL (0.1-1.0); CALCIUM, TOTAL 8.8 mg/dL (8.8-10.5); CARBON DIOXIDE 30 mmol/L (22-29); CHLORIDE 96 mmol/L (98-107); CREATININE 0.68 mg/dL (0.60-1.30); GLOMERULAR FILTR. RATE CALC > 60 mL/min (>60); POTASSIUM 3.4 mmol/L (3.5-5.1); SODIUM SERUM 133 mmol/L (136-145); TOTAL PROTEIN, SERUM 6.5 g/dL (6.4-8.2); UREA NITROGEN, BLOOD 7 mg/dL (7-18)
[2017-05-29 06:55] LABS: PLATELET COUNT (AUTO) 1341 K/uL (150-450)
[2017-05-29] MEDS: PANTOPRAZOLE SODIUM 40 MG/VIAL IVP SCH (09:27)
[2017-05-29] MEDS: LevETIRAcetam 500 MG TABLET PO SCH ×2 (09:28→22:07)
[2017-05-29] MEDS: SIMVASTATIN 10 MG TABLET PO SCH (09:28)
[2017-05-29] MEDS: TAMSULOSIN HCL 0.4 MG CAPSULE PO SCH ×2 (09:28→22:07)
[2017-05-29] MEDS: METOPROLOL TARTRATE 50 MG TABLET PO SCH ×2 (09:29→22:07)
[2017-05-29] MEDS: CHOLECALCIFEROL (VIT D3) 1,000 UNITS TABLET PO SCH (09:34)
[2017-05-29] MEDS: ACETAMINOPHEN 325 MG TABLET PO PRN ×2 (16:03→23:31)
[2017-05-29] MEDS: POTASSIUM CHLORIDE 20 MEQ ER TABLET PO PRN (19:42)
[2017-05-30] MEDS: CefoTEtan DISOD 2 GM/DEXTROSE 50 ML IV SCH ×2 (00:04→12:21)
[2017-05-30] MEDS: LORazepam 2 MG/ML VIAL IVP PRN ×5 (00:05→21:45)
[2017-05-30] MEDS: METOCLOPRAMIDE HCL 5 MG/ML 2 ML VIAL IVP SCH ×4 (00:11→17:25)
[2017-05-30 04:21] VITALS: BP 103/76
[2017-05-30] MEDS: LEVOTHYROXINE SODIUM 25 MCG TABLET PO SCH (05:56)
[2017-05-30] MEDS: LINACLOTIDE 290 MCG CAPSULE PO SCH (05:57)
[2017-05-30 07:17] LABS: BASOPHILS # (AUTO) 0.06 K/uL (0.00-0.20); BASOPHILS % (AUTO) 0.5 % (0.0-2.0); EOSINOPHILS # (AUTO) 0.42 K/uL (0.00-0.70); EOSINOPHILS % (AUTO) 3.65 % (1.0-6.0); HEMATOCRIT 33.5 % (41-53); HEMOGLOBIN 10.8 g/dL (13.5-17.5); LYMPHOCYTES # (AUTO) 1.5 K/uL (1.0-4.8); MEAN CORPUSCULAR HEMOGLOBIN 30.1 pg (26.0-34.0); MEAN CORPUSCULAR HGB CONC 32.3 G/dL (31.0-37.0); MEAN CORPUSCULAR VOLUME 93 fL (80-100); MONOCYTES # (AUTO) 0.8 K/uL (0.1-1.0); NEUTROPHILS # (AUTO) 8.6 K/uL (1.8-7.7); NEUTROPHILS % (AUTO) 75.9 % (40.0-70.0); WHITE BLOOD COUNT (AUTO) 11.4 K/uL (4.5-11.0)
[2017-05-30 07:21] LABS: PLATELET COUNT (AUTO) 1338 K/uL (150-450)
[2017-05-30 07:25] VITALS: BP 124/60
[2017-05-30 07:30] LABS: ALANINE AMINOTRANSFERASE 50 U/L (12-78); ALBUMIN 2.3 g/dL (3.4-5.0); ANION GAP 8 mmol/L (8-16); ASPARTATE AMINOTRANSFERASE 31 U/L (15-37); BILIRUBIN,TOTAL 0.2 mg/dL (0.1-1.0); CARBON DIOXIDE 29 mmol/L (22-29); CHLORIDE 100 mmol/L (98-107); CREATININE 0.87 mg/dL (0.60-1.30); GLOMERULAR FILTR. RATE CALC > 60 mL/min (>60); PHOSPHORUS 3.6 mg/dL (2.5-4.9); SODIUM SERUM 137 mmol/L (136-145); UREA NITROGEN, BLOOD 6 mg/dL (7-18)
[2017-05-30] MEDS: SIMVASTATIN 10 MG TABLET PO SCH (09:35)
[2017-05-30] MEDS: PANTOPRAZOLE SODIUM 40 MG/VIAL IVP SCH (09:35)
[2017-05-30] MEDS: TAMSULOSIN HCL 0.4 MG CAPSULE PO SCH ×2 (09:35→21:43)
[2017-05-30] MEDS: LevETIRAcetam 500 MG TABLET PO SCH ×2 (09:35→21:43)
[2017-05-30] MEDS: CHOLECALCIFEROL (VIT D3) 1,000 UNITS TABLET PO SCH (09:35)
[2017-05-30] MEDS: METOPROLOL TARTRATE 50 MG TABLET PO SCH ×2 (09:35→21:43)
[2017-05-30 11:55] VITALS: BP 103/56
[2017-05-30 15:07] VITALS: BP 107/52
[2017-05-30] MEDS ORDERED: POTASSIUM CHLORIDE 20 MEQ ER TABLET PO PRN (17:42)
[2017-05-30 19:22] VITALS: BP 117/61
[2017-05-30] MEDS ORDERED: GuaiFENesin/D-METHORPHAN [SUGAR-FREE] 200-20MG/10 ML SYRUP UDCUP PO PRN (19:30)
[2017-05-30] MEDS: DOCUSATE SODIUM 100 MG CAPSULE PO SCH (21:43)
[2017-05-30] MEDS: GuaiFENesin/D-METHORPHAN [SUGAR-FREE] 200-20MG/10 ML SYRUP UDCUP PO PRN (21:44)
[2017-05-30 23:47] VITALS: BP 106/65
[2017-05-31] MEDS: CefoTEtan DISOD 2 GM/DEXTROSE 50 ML IV SCH ×2 (01:14→11:47)
[2017-05-31] MEDS: METOCLOPRAMIDE HCL 5 MG/ML 2 ML VIAL IVP SCH ×4 (01:15→17:16)
[2017-05-31] MEDS: LORazepam 2 MG/ML VIAL IVP PRN ×4 (04:42→21:04)
[2017-05-31 04:43] VITALS: BP 107/54
[2017-05-31 06:14] LABS: BASOPHILS % (AUTO) 0.5 % (0.0-2.0); HEMATOCRIT 31.8 % (41-53); HEMOGLOBIN 10.6 g/dL (13.5-17.5); LYMPHOCYTES # (AUTO) 1.5 K/uL (1.0-4.8); LYMPHOCYTES % (AUTO) 11.8 % (22.0-44.0); MEAN CORPUSCULAR HEMOGLOBIN 30.4 pg (26.0-34.0); MEAN CORPUSCULAR HGB CONC 33.2 G/dL (31.0-37.0); MEAN CORPUSCULAR VOLUME 92 fL (80-100); MONOCYTES % (AUTO) 7.6 % (2.0-9.0); NEUTROPHILS # (AUTO) 9.8 K/uL (1.8-7.7); NEUTROPHILS % (AUTO) 76.1 % (40.0-70.0); RED BLOOD CELL COUNT(AUTO) 3.47 MIL/uL (4.50-5.90); RED CELL DISTRIBUTION WIDTH 14.1 % (11.5-14.5); WHITE BLOOD COUNT (AUTO) 12.9 K/uL (4.5-11.0)
[2017-05-31 06:37] LABS: ALANINE AMINOTRANSFERASE 43 U/L (12-78); ALBUMIN 2.3 g/dL (3.4-5.0); ANION GAP 6 mmol/L (8-16); ASPARTATE AMINOTRANSFERASE 25 U/L (15-37); BILIRUBIN,TOTAL 0.2 mg/dL (0.1-1.0); CALCIUM, TOTAL 8.9 mg/dL (8.8-10.5); CARBON DIOXIDE 32 mmol/L (22-29); CHLORIDE 95 mmol/L (98-107); GLOMERULAR FILTR. RATE CALC > 60 mL/min (>60); POTASSIUM 4.2 mmol/L (3.5-5.1); SODIUM SERUM 133 mmol/L (136-145); UREA NITROGEN, BLOOD 6 mg/dL (7-18)
[2017-05-31 06:52] LABS: PLATELET COUNT (AUTO) 1218 K/uL (150-450)
[2017-05-31] MEDS: LINACLOTIDE 290 MCG CAPSULE PO SCH (06:52)
[2017-05-31] MEDS: LEVOTHYROXINE SODIUM 25 MCG TABLET PO SCH (06:52)
[2017-05-31] MEDS: GuaiFENesin/D-METHORPHAN [SUGAR-FREE] 200-20MG/10 ML SYRUP UDCUP PO PRN ×2 (06:54→10:00)
[2017-05-31 07:36] VITALS: BP 99/59
[2017-05-31] MEDS: CHOLECALCIFEROL (VIT D3) 1,000 UNITS TABLET PO SCH (08:59)
[2017-05-31] MEDS: DOCUSATE SODIUM 100 MG CAPSULE PO SCH ×2 (08:59→21:03)
[2017-05-31] MEDS: METOPROLOL TARTRATE 50 MG TABLET PO SCH ×2 (08:59→20:59)
[2017-05-31] MEDS: LevETIRAcetam 500 MG TABLET PO SCH ×2 (09:00→21:03)
[2017-05-31] MEDS: SIMVASTATIN 10 MG TABLET PO SCH (09:00)
[2017-05-31] MEDS: PANTOPRAZOLE SODIUM 40 MG/VIAL IVP SCH (09:00)
[2017-05-31] MEDS: TAMSULOSIN HCL 0.4 MG CAPSULE PO SCH ×2 (09:00→21:03)
[2017-05-31 11:12] VITALS: BP 104/63
[2017-05-31 15:56] VITALS: BP 115/52
[2017-06-01] VITALS (7 sets, daily range): BP systolic 104–127; BP diastolic 53–67
[2017-06-01] MEDS: CefoTEtan DISOD 2 GM/DEXTROSE 50 ML IV SCH ×2 (01:56→12:02)
[2017-06-01] MEDS: METOCLOPRAMIDE HCL 5 MG/ML 2 ML VIAL IVP SCH ×4 (01:57→17:55)
[2017-06-01] MEDS: LORazepam 2 MG/ML VIAL IVP PRN ×3 (02:01→20:54)
[2017-06-01] MEDS: LEVOTHYROXINE SODIUM 25 MCG TABLET PO SCH (06:35)
[2017-06-01] MEDS: LINACLOTIDE 290 MCG CAPSULE PO SCH (06:35)
[2017-06-01 06:48] LABS: BASOPHILS # (AUTO) 0.03 K/uL (0.00-0.20); BASOPHILS % (AUTO) 0.2 % (0.0-2.0); EOSINOPHILS # (AUTO) 0.44 K/uL (0.00-0.70); EOSINOPHILS % (AUTO) 3.62 % (1.0-6.0); HEMATOCRIT 32.5 % (41-53); HEMOGLOBIN 10.7 g/dL (13.5-17.5); LYMPHOCYTES # (AUTO) 1.6 K/uL (1.0-4.8); LYMPHOCYTES % (AUTO) 12.8 % (22.0-44.0); MEAN CORPUSCULAR HEMOGLOBIN 30.1 pg (26.0-34.0); MEAN CORPUSCULAR VOLUME 91 fL (80-100); MONOCYTES # (AUTO) 1.1 K/uL (0.1-1.0); MONOCYTES % (AUTO) 9.1 % (2.0-9.0); NEUTROPHILS # (AUTO) 9.1 K/uL (1.8-7.7); NEUTROPHILS % (AUTO) 74.3 % (40.0-70.0); RED BLOOD CELL COUNT(AUTO) 3.57 MIL/uL (4.50-5.90); RED CELL DISTRIBUTION WIDTH 14.3 % (11.5-14.5); WHITE BLOOD COUNT (AUTO) 12.3 K/uL (4.5-11.0)
[2017-06-01 06:58] LABS: ALANINE AMINOTRANSFERASE 34 U/L (12-78); ALBUMIN 2.3 g/dL (3.4-5.0); ANION GAP 9 mmol/L (8-16); ASPARTATE AMINOTRANSFERASE 17 U/L (15-37); BILIRUBIN,TOTAL 0.3 mg/dL (0.1-1.0); CALCIUM, TOTAL 8.7 mg/dL (8.8-10.5); CARBON DIOXIDE 31 mmol/L (22-29); CHLORIDE 93 mmol/L (98-107); CREATININE 0.63 mg/dL (0.60-1.30); GLOMERULAR FILTR. RATE CALC > 60 mL/min (>60); POTASSIUM 3.7 mmol/L (3.5-5.1); SODIUM SERUM 133 mmol/L (136-145); TOTAL PROTEIN, SERUM 7.4 g/dL (6.4-8.2); UREA NITROGEN, BLOOD 7 mg/dL (7-18)
[2017-06-01 07:37] LABS: PLATELET COUNT (AUTO) 1088 K/uL (150-450)
[2017-06-01] MEDS: TAMSULOSIN HCL 0.4 MG CAPSULE PO SCH ×2 (07:40→20:53)
[2017-06-01] MEDS: CHOLECALCIFEROL (VIT D3) 1,000 UNITS TABLET PO SCH (07:40)
[2017-06-01] MEDS: DOCUSATE SODIUM 100 MG CAPSULE PO SCH ×2 (07:41→20:53)
[2017-06-01] MEDS: PANTOPRAZOLE SODIUM 40 MG/VIAL IVP SCH (07:41)
[2017-06-01] MEDS: LevETIRAcetam 500 MG TABLET PO SCH ×2 (07:41→20:53)
[2017-06-01] MEDS: SIMVASTATIN 10 MG TABLET PO SCH (07:41)
[2017-06-01] MEDS: METOPROLOL TARTRATE 50 MG TABLET PO SCH ×2 (07:41→20:53)
[2017-06-01] MEDS: ZOLPIDEM TARTRATE 5 MG TABLET PO PRN (20:53)
[2017-06-02] MEDS: METOCLOPRAMIDE HCL 5 MG/ML 2 ML VIAL IVP SCH ×4 (00:41→18:00)
[2017-06-02] MEDS: CefoTEtan DISOD 2 GM/DEXTROSE 50 ML IV SCH ×2 (00:41→13:22)
[2017-06-02 05:27] VITALS: BP 100/69
[2017-06-02] MEDS: LINACLOTIDE 290 MCG CAPSULE PO SCH (06:35)
[2017-06-02] MEDS: LEVOTHYROXINE SODIUM 25 MCG TABLET PO SCH (06:35)
[2017-06-02 07:16] LABS: ALANINE AMINOTRANSFERASE 31 U/L (12-78); ALBUMIN 2.3 g/dL (3.4-5.0); ANION GAP 8 mmol/L (8-16); ASPARTATE AMINOTRANSFERASE 18 U/L (15-37); BILIRUBIN,TOTAL 0.2 mg/dL (0.1-1.0); CALCIUM, TOTAL 9.2 mg/dL (8.8-10.5); CARBON DIOXIDE 32 mmol/L (22-29); CHLORIDE 95 mmol/L (98-107); CREATININE 0.74 mg/dL (0.60-1.30); GLOMERULAR FILTR. RATE CALC > 60 mL/min (>60); POTASSIUM 3.9 mmol/L (3.5-5.1); SODIUM SERUM 135 mmol/L (136-145); TOTAL PROTEIN, SERUM 7.8 g/dL (6.4-8.2); UREA NITROGEN, BLOOD 4 mg/dL (7-18)
[2017-06-02 07:33] VITALS: BP 121/64
[2017-06-02] MEDS: PANTOPRAZOLE SODIUM 40 MG/VIAL IVP SCH (08:25)
[2017-06-02] MEDS: TAMSULOSIN HCL 0.4 MG CAPSULE PO SCH (08:25)
[2017-06-02] MEDS: METOPROLOL TARTRATE 50 MG TABLET PO SCH (08:26)
[2017-06-02] MEDS: DOCUSATE SODIUM 100 MG CAPSULE PO SCH (08:26)
[2017-06-02] MEDS: CHOLECALCIFEROL (VIT D3) 1,000 UNITS TABLET PO SCH (08:26)
[2017-06-02] MEDS: SIMVASTATIN 10 MG TABLET PO SCH (08:26)
[2017-06-02] MEDS: LevETIRAcetam 500 MG TABLET PO SCH (08:26)
[2017-06-02 08:43] LABS: BASOPHILS % (AUTO) 0.4 % (0.0-2.0); EOSINOPHILS % (AUTO) 2.6 % (1.0-6.0); HEMATOCRIT 33.8 % (41-53); HEMOGLOBIN 11.4 g/dL (13.5-17.5); LYMPHOCYTES # (AUTO) 1.7 K/uL (1.0-4.8); LYMPHOCYTES % (AUTO) 13.1 % (22.0-44.0); MEAN CORPUSCULAR HEMOGLOBIN 30.5 pg (26.0-34.0); MEAN CORPUSCULAR HGB CONC 33.6 G/dL (31.0-37.0); MEAN CORPUSCULAR VOLUME 91 fL (80-100); MONOCYTES % (AUTO) 8.3 % (2.0-9.0); NEUTROPHILS # (AUTO) 9.6 K/uL (1.8-7.7); NEUTROPHILS % (AUTO) 75.6 % (40.0-70.0); RED BLOOD CELL COUNT(AUTO) 3.72 MIL/uL (4.50-5.90); WHITE BLOOD COUNT (AUTO) 12.7 K/uL (4.5-11.0)
[2017-06-02 08:45] LABS: PLATELET COUNT (AUTO) 1093 K/uL (150-450)
[2017-06-02 11:45] VITALS: BP 102/78
[2017-06-02] MEDS ORDERED: LEVE500T53 PO (13:11)
[2017-06-02] MEDS ORDERED: LEVO500 PO (13:11)
[2017-06-02] MEDS ORDERED: METO25 PO (13:13)
[2017-06-02] MEDS ORDERED: PANT40TA25 PO (13:13)
[2017-06-02] MEDS ORDERED: SIMV-259 PO (13:15)
[2017-06-02] MEDS ORDERED: TAMS0.4C32 PO (13:16)
[2017-06-02 15:53] VITALS: BP 112/51
[2017-06-09] MEDS ORDERED: BENZ0.5T6 PO (12:56)
[2017-06-09] MEDS ORDERED: QUET25TA PO (12:56)
[2017-06-09] MEDS ORDERED: TRAZ-144 PO (12:56)
== END 2017-06-02 19:25 | DRG 720 ==
LOC: 5S 22:00 → ICU 05-14 21:20 → 5S 05-27 13:05
PROVIDERS: ADMIT Internal Medicine; ATTEND Internal Medicine
PROC: 5A1955Z Respiratory Ventilation, Greater than 96 Consecutive Hours (ICD-10-PCS; principal; 2017-05-14)
PROC: 0BH17EZ Insertion of Endotracheal Airway into Trachea, Via Natural or Artificial Opening (ICD-10-PCS; 2017-05-14)
PROC: 0W9B3ZZ Drainage of Left Pleural Cavity, Percutaneous Approach (ICD-10-PCS; 2017-05-25)
DX: A41.9 Sepsis, unspecified organism (principal); J96.01 Acute respiratory failure with hypoxia; J69.0 Pneumonitis due to inhalation of food and vomit; J86.9 Pyothorax without fistula; J90 Pleural effusion, not elsewhere classified; E87.2 Acidosis; E87.3 Alkalosis; K56.600 Partial intestinal obstruction, unspecified as to cause; E87.1 Hypo-osmolality and hyponatremia; N17.9 Acute kidney failure, unspecified; N13.30 Unspecified hydronephrosis; F20.0 Paranoid schizophrenia; E03.9 Hypothyroidism, unspecified; E78.5 Hyperlipidemia, unspecified; E87.5 Hyperkalemia; R33.9 Retention of urine, unspecified; N18.9 Chronic kidney disease, unspecified; E55.9 Vitamin D deficiency, unspecified; D64.9 Anemia, unspecified; D75.89 Other specified diseases of blood and blood-forming organs; E86.0 Dehydration; E86.1 Hypovolemia; E87.6 Hypokalemia; F32.9 Major depressive disorder, single episode, unspecified; I12.9 Hypertensive chronic kidney disease with stage 1 through stage 4 chronic kidney disease, or unspecified chronic kidney disease; K56.41 Fecal impaction; K56.7 Ileus, unspecified; K92.0 Hematemesis; M62.82 Rhabdomyolysis; R31.0 Gross hematuria; Z22.322 Carrier or suspected carrier of Methicillin resistant Staphylococcus aureus; Z81.0 Family history of intellectual disabilities; Z81.8 Family history of other mental and behavioral disorders
CPT/HCPCS: 32555; 71250; 72192; 74000; 74022; 74150; 76770; 76942; 82436; 82570; 82805; 82962; 83036; 83605; 83615; 83735; 83935; 84100; 84132; 84133; 84145; 84156; 84300; 84439; 84443; 84540; 84550; 85379; 85651; 86140; 87040; 87070; 87081; 87086; 87205; 89051; 92610; 93005; 93306; 93971; 94002; 94003; 94640; C9113; J0637; J0696; J0712; J1815; J2060; J2405; J2543; J2704; J2765; J3370; J3475; J3480; J3490; J7030; J7050; J7060

== ENCOUNTER 2017-06-02 19:44 | Inpatient (IN) | payer MEDICAID ==
[~2017-06-02] VITALS: Ht 182.9 cm; Wt 61.6 kg
[2017-06-02 17:45] VITALS: BP 129/66
[~2017-06-02 19:44] MED LIST changes: +LEVE500T53 PO; +LEVO500 PO; +METO25 PO; +PANT40TA25 PO; +SIMV-259 PO; +TAMS0.4C32 PO
[2017-06-02] MEDS: ZOLPIDEM TARTRATE 10 MG TABLET PO PRN (21:57)
[2017-06-02] MEDS: LORazepam 2 MG TABLET PO PRN (22:37)
[2017-06-03 01:46] VITALS: BP 117/62
[2017-06-03] MEDS: HALOPERIDOL 5 MG TABLET PO PRN ×2 (04:31→23:23)
[2017-06-03] MEDS: LEVOTHYROXINE SODIUM 25 MCG TABLET PO SCH (07:18)
[2017-06-03] MEDS: LINACLOTIDE 290 MCG CAPSULE PO SCH (07:19)
[2017-06-03 07:55] LABS: BASOPHILS % (AUTO) 1.1 % (0.0-2.0); EOSINOPHILS % (AUTO) 5.2 % (1.0-6.0); HEMATOCRIT 34.5 % (41-53); HEMOGLOBIN 11.8 g/dL (13.5-17.5); LYMPHOCYTES # (AUTO) 2.4 K/uL (1.0-4.8); LYMPHOCYTES % (AUTO) 21.4 % (22.0-44.0); MEAN CORPUSCULAR HEMOGLOBIN 30.4 pg (26.0-34.0); MEAN CORPUSCULAR HGB CONC 34.1 G/dL (31.0-37.0); MEAN CORPUSCULAR VOLUME 89 fL (80-100); MONOCYTES # (AUTO) 0.9 K/uL (0.1-1.0); MONOCYTES % (AUTO) 8.2 % (2.0-9.0); NEUTROPHILS % (AUTO) 64.1 % (40.0-70.0); RED BLOOD CELL COUNT(AUTO) 3.87 MIL/uL (4.50-5.90); RED CELL DISTRIBUTION WIDTH 13.4 % (11.5-14.5)
[2017-06-03 08:07] LABS: ANION GAP 10 mmol/L (8-16); CALCIUM, TOTAL 9.7 mg/dL (8.8-10.5); CARBON DIOXIDE 29 mmol/L (22-29); CHLORIDE 95 mmol/L (98-107); CHOL/HDL RATIO 3.3 (4.2-7.3); CHOLESTEROL 147 mg/dL (131-200); CREATININE 0.67 mg/dL (0.60-1.30); GLOMERULAR FILTR. RATE CALC > 60 mL/min (>60); GLUCOSE,RANDOM 108 mg/dL (70-110); HDL CHOLESTEROL 45 mg/dL (40-60); LDL CHOL (CALC.) 87 mg/dL (0-130); PHOSPHORUS 3.6 mg/dL (2.5-4.9); POTASSIUM 4.5 mmol/L (3.5-5.1); SODIUM SERUM 134 mmol/L (136-145); TRIGLYCERIDES 73 mg/dL (15-150); UREA NITROGEN, BLOOD 2 mg/dL (7-18)
[2017-06-03 08:10] VITALS: BP 130/71
[2017-06-03] MEDS: LevETIRAcetam 500 MG TABLET PO SCH ×2 (08:11→16:27)
[2017-06-03] MEDS: TAMSULOSIN HCL 0.4 MG CAPSULE PO SCH ×2 (08:11→16:27)
[2017-06-03] MEDS: DOCUSATE SODIUM 100 MG CAPSULE PO SCH ×2 (08:12→16:27)
[2017-06-03] MEDS: CHOLECALCIFEROL (VIT D3) 1,000 UNITS TABLET PO SCH (08:12)
[2017-06-03] MEDS: PANTOPRAZOLE SODIUM 40 MG DR TABLET PO SCH (08:12)
[2017-06-03] MEDS: LEVOFLOXACIN 500 MG TABLET PO SCH (08:12)
[2017-06-03] MEDS: SIMVASTATIN 10 MG TABLET PO SCH (08:13)
[2017-06-03 08:14] LABS: PLATELET COUNT (AUTO) 996 K/uL (150-450)
[2017-06-03] MEDS: METOPROLOL TARTRATE 50 MG TABLET PO SCH ×2 (08:16→16:27)
[2017-06-03] MEDS: LORazepam 2 MG TABLET PO PRN ×2 (08:17→23:23)
[2017-06-03 16:58] VITALS: BP 116/65
[2017-06-03] MEDS: ZOLPIDEM TARTRATE 10 MG TABLET PO PRN (20:20)
[2017-06-04 04:58] VITALS: BP 119/70
[2017-06-04 06:24] LABS: BASOPHILS # (AUTO) 0.05 K/uL (0.00-0.20); BASOPHILS % (AUTO) 0.6 % (0.0-2.0); EOSINOPHILS # (AUTO) 0.25 K/uL (0.00-0.70); EOSINOPHILS % (AUTO) 3.21 % (1.0-6.0); HEMATOCRIT 31.4 % (41-53); HEMOGLOBIN 10.5 g/dL (13.5-17.5); LYMPHOCYTES # (AUTO) 1.7 K/uL (1.0-4.8); LYMPHOCYTES % (AUTO) 21.1 % (22.0-44.0); MEAN CORPUSCULAR HEMOGLOBIN 29.8 pg (26.0-34.0); MEAN CORPUSCULAR HGB CONC 33.3 G/dL (31.0-37.0); MEAN CORPUSCULAR VOLUME 90 fL (80-100); MONOCYTES # (AUTO) 0.9 K/uL (0.1-1.0); MONOCYTES % (AUTO) 10.8 % (2.0-9.0); NEUTROPHILS # (AUTO) 5.1 K/uL (1.8-7.7); NEUTROPHILS % (AUTO) 64.3 % (40.0-70.0); RED CELL DISTRIBUTION WIDTH 13.9 % (11.5-14.5)
[2017-06-04 06:26] LABS: PLATELET COUNT (AUTO) 821 K/uL (150-450)
[2017-06-04 06:29] LABS: ANION GAP 9 mmol/L (8-16); CALCIUM, TOTAL 9.1 mg/dL (8.8-10.5); CARBON DIOXIDE 29 mmol/L (22-29); CHLORIDE 95 mmol/L (98-107); CREATININE 0.68 mg/dL (0.60-1.30); GLOMERULAR FILTR. RATE CALC > 60 mL/min (>60); GLUCOSE,RANDOM 108 mg/dL (70-110); PHOSPHORUS 4.6 mg/dL (2.5-4.9); POTASSIUM 3.7 mmol/L (3.5-5.1); SODIUM SERUM 133 mmol/L (136-145); UREA NITROGEN, BLOOD 3 mg/dL (7-18)
[2017-06-04] MEDS: LINACLOTIDE 290 MCG CAPSULE PO SCH (06:53)
[2017-06-04] MEDS: LEVOTHYROXINE SODIUM 25 MCG TABLET PO SCH (06:54)
[2017-06-04] MEDS: SIMVASTATIN 10 MG TABLET PO SCH (11:04)
[2017-06-04] MEDS: METOPROLOL TARTRATE 50 MG TABLET PO SCH ×2 (11:04→17:10)
[2017-06-04] MEDS: DOCUSATE SODIUM 100 MG CAPSULE PO SCH ×2 (11:07→17:10)
[2017-06-04] MEDS: TAMSULOSIN HCL 0.4 MG CAPSULE PO SCH ×2 (11:07→17:10)
[2017-06-04] MEDS: LevETIRAcetam 500 MG TABLET PO SCH ×2 (11:07→17:10)
[2017-06-04] MEDS: MULTIVITAMINS WITH MINERALS, THERAPEUTIC TABLET PO SCH (11:07)
[2017-06-04] MEDS: CHOLECALCIFEROL (VIT D3) 1,000 UNITS TABLET PO SCH (11:07)
[2017-06-04] MEDS: LEVOFLOXACIN 500 MG TABLET PO SCH (11:08)
[2017-06-04] MEDS: PANTOPRAZOLE SODIUM 40 MG DR TABLET PO SCH (11:08)
[2017-06-04 14:24] VITALS: BP 129/85
[2017-06-04 19:37] VITALS: BP 122/87
[2017-06-04] MEDS: ZOLPIDEM TARTRATE 10 MG TABLET PO PRN (23:54)
[2017-06-04] MEDS: LORazepam 2 MG TABLET PO PRN (23:55)
[2017-06-05 03:10] VITALS: BP 120/69
[2017-06-05 06:25] LABS: BASOPHILS # (AUTO) 0.04 K/uL (0.00-0.20); BASOPHILS % (AUTO) 0.5 % (0.0-2.0); EOSINOPHILS # (AUTO) 0.18 K/uL (0.00-0.70); EOSINOPHILS % (AUTO) 2.15 % (1.0-6.0); HEMATOCRIT 33.9 % (41-53); HEMOGLOBIN 11.4 g/dL (13.5-17.5); LYMPHOCYTES # (AUTO) 1.8 K/uL (1.0-4.8); LYMPHOCYTES % (AUTO) 20.8 % (22.0-44.0); MEAN CORPUSCULAR HEMOGLOBIN 29.6 pg (26.0-34.0); MEAN CORPUSCULAR HGB CONC 33.7 G/dL (31.0-37.0); MEAN CORPUSCULAR VOLUME 88 fL (80-100); MONOCYTES % (AUTO) 11.2 % (2.0-9.0); NEUTROPHILS # (AUTO) 5.6 K/uL (1.8-7.7); NEUTROPHILS % (AUTO) 65.5 % (40.0-70.0); RED BLOOD CELL COUNT(AUTO) 3.86 MIL/uL (4.50-5.90); RED CELL DISTRIBUTION WIDTH 13.8 % (11.5-14.5)
[2017-06-05 06:37] LABS: ANION GAP 8 mmol/L (8-16); CALCIUM, TOTAL 9.6 mg/dL (8.8-10.5); CARBON DIOXIDE 29 mmol/L (22-29); CHLORIDE 96 mmol/L (98-107); CREATININE 0.84 mg/dL (0.60-1.30); GLOMERULAR FILTR. RATE CALC > 60 mL/min (>60); GLUCOSE,RANDOM 134 mg/dL (70-110); PHOSPHORUS 4.4 mg/dL (2.5-4.9); POTASSIUM 3.9 mmol/L (3.5-5.1); SODIUM SERUM 133 mmol/L (136-145); UREA NITROGEN, BLOOD 3 mg/dL (7-18)
[2017-06-05 06:38] LABS: PLATELET COUNT (AUTO) 866 K/uL (150-450)
[2017-06-05] MEDS: LINACLOTIDE 290 MCG CAPSULE PO SCH ×2 (06:43→06:44)
[2017-06-05] MEDS: LEVOTHYROXINE SODIUM 25 MCG TABLET PO SCH ×2 (06:43→06:45)
[2017-06-05 08:00] VITALS: BP 125/95
[2017-06-05] MEDS: LORazepam 2 MG TABLET PO PRN ×2 (08:41→23:43)
[2017-06-05] MEDS: HALOPERIDOL 5 MG TABLET PO PRN (08:41)
[2017-06-05] MEDS: SIMVASTATIN 10 MG TABLET PO SCH (08:42)
[2017-06-05] MEDS: LEVOFLOXACIN 500 MG TABLET PO SCH (08:42)
[2017-06-05] MEDS: TAMSULOSIN HCL 0.4 MG CAPSULE PO SCH ×2 (08:42→17:06)
[2017-06-05] MEDS: LevETIRAcetam 500 MG TABLET PO SCH ×2 (08:43→17:06)
[2017-06-05] MEDS: PANTOPRAZOLE SODIUM 40 MG DR TABLET PO SCH (08:43)
[2017-06-05] MEDS: CHOLECALCIFEROL (VIT D3) 1,000 UNITS TABLET PO SCH (08:43)
[2017-06-05] MEDS: METOPROLOL TARTRATE 50 MG TABLET PO SCH ×2 (08:43→17:06)
[2017-06-05] MEDS: MULTIVITAMINS WITH MINERALS, THERAPEUTIC TABLET PO SCH (08:43)
[2017-06-05] MEDS: DOCUSATE SODIUM 100 MG CAPSULE PO SCH ×2 (08:43→17:06)
[2017-06-05 16:30] VITALS: BP 124/69
[2017-06-05] MEDS: SODIUM CHLORIDE 1 GM TABLET PO SCH (17:06)
[2017-06-05] MEDS: ZOLPIDEM TARTRATE 10 MG TABLET PO PRN (23:42)
[2017-06-06 01:26] VITALS: BP 110/69
[2017-06-06 06:20] LABS: BASOPHILS # (AUTO) 0.05 K/uL (0.00-0.20); BASOPHILS % (AUTO) 0.7 % (0.0-2.0); EOSINOPHILS # (AUTO) 0.25 K/uL (0.00-0.70); EOSINOPHILS % (AUTO) 3.53 % (1.0-6.0); HEMATOCRIT 32.3 % (41-53); HEMOGLOBIN 10.6 g/dL (13.5-17.5); LYMPHOCYTES # (AUTO) 2.3 K/uL (1.0-4.8); LYMPHOCYTES % (AUTO) 31.7 % (22.0-44.0); MEAN CORPUSCULAR HEMOGLOBIN 29.6 pg (26.0-34.0); MEAN CORPUSCULAR HGB CONC 32.8 G/dL (31.0-37.0); MEAN CORPUSCULAR VOLUME 90 fL (80-100); MONOCYTES # (AUTO) 0.7 K/uL (0.1-1.0); MONOCYTES % (AUTO) 10.2 % (2.0-9.0); NEUTROPHILS # (AUTO) 3.8 K/uL (1.8-7.7); NEUTROPHILS % (AUTO) 53.9 % (40.0-70.0); PLATELET COUNT (AUTO) 670 K/uL (150-450); RED BLOOD CELL COUNT(AUTO) 3.58 MIL/uL (4.50-5.90)
[2017-06-06 06:41] LABS: ANION GAP 8 mmol/L (8-16); CARBON DIOXIDE 29 mmol/L (22-29); CHLORIDE 97 mmol/L (98-107); CREATININE 0.68 mg/dL (0.60-1.30); GLOMERULAR FILTR. RATE CALC > 60 mL/min (>60); GLUCOSE,RANDOM 95 mg/dL (70-110); PHOSPHORUS 4.7 mg/dL (2.5-4.9); POTASSIUM 3.5 mmol/L (3.5-5.1); SODIUM SERUM 134 mmol/L (136-145); UREA NITROGEN, BLOOD 3 mg/dL (7-18)
[2017-06-06] MEDS: LINACLOTIDE 290 MCG CAPSULE PO SCH (07:00)
[2017-06-06] MEDS: LEVOTHYROXINE SODIUM 25 MCG TABLET PO SCH (07:00)
[2017-06-06] MEDS: MULTIVITAMINS WITH MINERALS, THERAPEUTIC TABLET PO SCH (08:00)
[2017-06-06] MEDS: TAMSULOSIN HCL 0.4 MG CAPSULE PO SCH (08:01)
[2017-06-06] MEDS: LEVOFLOXACIN 500 MG TABLET PO SCH (08:01)
[2017-06-06] MEDS: PANTOPRAZOLE SODIUM 40 MG DR TABLET PO SCH (08:01)
[2017-06-06] MEDS: CHOLECALCIFEROL (VIT D3) 1,000 UNITS TABLET PO SCH (08:01)
[2017-06-06] MEDS: LevETIRAcetam 500 MG TABLET PO SCH (08:01)
[2017-06-06] MEDS: DOCUSATE SODIUM 100 MG CAPSULE PO SCH (08:01)
[2017-06-06] MEDS: SIMVASTATIN 10 MG TABLET PO SCH (08:01)
[2017-06-06] MEDS: SODIUM CHLORIDE 1 GM TABLET PO SCH (08:01)
[2017-06-06] MEDS: METOPROLOL TARTRATE 50 MG TABLET PO SCH (08:06)
[2017-06-06 08:47] VITALS: BP 146/92
[2017-06-06] MEDS: LORazepam 2 MG TABLET PO PRN (10:47)
[2017-06-06] MEDS ORDERED: PALI234D IM (13:39)
[2017-06-06] MEDS ORDERED: CHOL200016 PO (13:42)
[2017-06-06] MEDS ORDERED: LINA290C PO (13:43)
[2017-06-06] MEDS ORDERED: LEVE500T53 PO (13:44)
[2017-06-06] MEDS ORDERED: METO50 PO (13:44)
[2017-06-06] MEDS ORDERED: MULT-35 PO (13:46)
[2017-06-09] MEDS ORDERED: QUET25TA PO (12:56)
[2017-06-09] MEDS ORDERED: BENZ0.5T6 PO (12:56)
[2017-06-09] MEDS ORDERED: TRAZ-144 PO (12:56)
[2017-06-23] MEDS ORDERED: PALIPERIDONE PALMITATE 234 MG/1.5 ML SYRINGE IM SCH (09:00)
== END 2017-06-06 14:10 | disposition home or self-care (01) | DRG 750 ==
LOC: 3EC 19:46
PROVIDERS: ADMIT Psychiatry & Neurology Psychiatry; ATTEND Psychiatry & Neurology Psychiatry
DX: F20.0 Paranoid schizophrenia (principal); E87.1 Hypo-osmolality and hyponatremia; I12.9 Hypertensive chronic kidney disease with stage 1 through stage 4 chronic kidney disease, or unspecified chronic kidney disease; R79.89 Other specified abnormal findings of blood chemistry; E03.9 Hypothyroidism, unspecified; D64.9 Anemia, unspecified; E78.5 Hyperlipidemia, unspecified; E56.9 Vitamin deficiency, unspecified; N18.9 Chronic kidney disease, unspecified; I80.9 Phlebitis and thrombophlebitis of unspecified site
CPT/HCPCS: 83735; 84100; 87081

== ENCOUNTER 2017-06-07 13:46 | Emergency (ER) | payer MEDICAID, OTHER ==
[~2017-06-07] VITALS: Ht 175.3 cm; Wt 63.2 kg
[~2017-06-07 13:46] MED LIST changes: -CARB200T6 PO; +CHOL200016 PO; -CLOZ100 PO; -FERR-89 PO; +LINA290C PO; -METO25 PO; +METO50 PO; +MULT-35 PO; +PALI234D IM; -SIMV5TAB6 PO; -VITAD1000 PO
[2017-06-07 19:36] LABS: BASOPHILS % (AUTO) 0.4 % (0.0-2.0); EOSINOPHILS % (AUTO) 1.3 % (1.0-6.0); HEMATOCRIT 33.1 % (41-53); HEMOGLOBIN 11.2 g/dL (13.5-17.5); LYMPHOCYTES # (AUTO) 1.4 K/uL (1.0-4.8); LYMPHOCYTES % (AUTO) 18.1 % (22.0-44.0); MEAN CORPUSCULAR HEMOGLOBIN 30.2 pg (26.0-34.0); MEAN CORPUSCULAR HGB CONC 33.9 G/dL (31.0-37.0); MEAN CORPUSCULAR VOLUME 89 fL (80-100); MONOCYTES # (AUTO) 0.7 K/uL (0.1-1.0); MONOCYTES % (AUTO) 8.8 % (2.0-9.0); NEUTROPHILS # (AUTO) 5.6 K/uL (1.8-7.7); NEUTROPHILS % (AUTO) 71.4 % (40.0-70.0); PLATELET COUNT (AUTO) 664 K/uL (150-450); RED BLOOD CELL COUNT(AUTO) 3.72 MIL/uL (4.50-5.90); RED CELL DISTRIBUTION WIDTH 14.2 % (11.5-14.5); WHITE BLOOD COUNT (AUTO) 7.8 K/uL (4.5-11.0)
[2017-06-07 19:55] LABS: ANION GAP 6 mmol/L (8-16); CARBON DIOXIDE 30 mmol/L (22-29); CHLORIDE 96 mmol/L (98-107); CREATININE 0.71 mg/dL (0.60-1.30); GLOMERULAR FILTR. RATE CALC > 60 mL/min (>60); SODIUM SERUM 132 mmol/L (136-145); UREA NITROGEN, BLOOD 5 mg/dL (7-18)
[2017-06-07] MEDS ORDERED: HALOPERIDOL LACTATE 5 MG/ML VIAL IM ONE (20:00)
[2017-06-07] MEDS ORDERED: LORazepam 2 MG/ML VIAL IM ONE (20:00)
[2017-06-07] MEDS ORDERED: DiphenhydrAMINE HCL 50 MG/ML VIAL IM ONE (20:00)
[2017-06-07 20:01] LABS: ALANINE AMINOTRANSFERASE 26 U/L (12-78); ALBUMIN 2.8 g/dL (3.4-5.0); ASPARTATE AMINOTRANSFERASE 17 U/L (15-37); BILIRUBIN,TOTAL 0.3 mg/dL (0.1-1.0); TOTAL PROTEIN, SERUM 7.5 g/dL (6.4-8.2)
[2017-06-07 20:57] LABS: APPEARANCE,URINE CLOUDY (CLEAR); GLUCOSE, URINE (UA) NEGATIVE (NEGATIVE); KETONES,URINE NEGATIVE (NEGATIVE); LEUKOCYTE ESTERASE ,URINE NEGATIVE (NEGATIVE); OCCULT BLOOD,URINE NEGATIVE (NEGATIVE); PROTEIN,URINE NEGATIVE (NEGATIVE)
[2017-06-07 21:09] LABS: ADD UA MICROSCOPIC NO
[2017-06-07 23:09] VITALS: BP 118/67
[2017-06-09] MEDS ORDERED: BENZ0.5T6 PO (12:56)
[2017-06-09] MEDS ORDERED: QUET25TA PO (12:56)
[2017-06-09] MEDS ORDERED: TRAZ-144 PO (12:56)
== END 2017-06-07 23:16 | disposition home or self-care (01) ==
LOC: EMS 13:48
DX: F20.0 Paranoid schizophrenia (principal)
CPT/HCPCS: 36415; 80053; 80307; 81003; 83690; 85025; 96372; 99285; G0480; J1200; J1630; J2060